=== PATIENT | male | born 1935 | race Caucasian/White ===

== ENCOUNTER 2016-08-12 11:05 | Day surgery (SDC) | payer MEDICARE ==
[~2016-08-12] VITALS: Ht 182.9 cm; Wt 111.5 kg
[2016-08-12] VITALS (10 sets, daily range): BP systolic 116–199; BP diastolic 59–95; PULSE 52–165; RESP 13–25; O2SAT 94–96
--- NOTE | 2016-08-12 07:10 | PCM.HPANE ---
Patient Data Surgeon Admitting Provider: Attending Provider:Orion Del Toro MD Primary Care Physician:Bijal Zarate PA-C Other Provider:Vanessa Sparks Anesthesia Reason for Visit Bladder Tumor Ht/WT & BMI Height (Feet): 6 Height (Inches): 0 Weight (Kilograms): 112.309 Body Mass Index 33.00 Allergies Coded Allergies: No Known Allergies (Unverified , 08/11/16) Past Anesthesia History Anesthesia History: Denies:: Anesthesia Reactions, Malignant Hyperthermia Diabetes History Hx Diabetes?: No MRSA MRSA: No Medications Reported Medications Ciprofloxacin (Cipro)500 Mg [id number] Mg PO BID Ref 0 08/11/16 [place]-3/Dha/Epa/Fish Oil (Fish Oil 1,000 mg Softgel)1 Each Capsule1 Each PO DAILY 08/11/16 Tamsulosin (Flomax)0.4 Mg Capsule0.4 Mg PO DAILY Ref 0 08/11/16 History History of ENT Problems?: Yes HEENT History: Denies:: Glaucoma (C/OF EYE IRRITATION) Hx of Heart Problems?: Yes Cardiovascular History: Denies:: Heart Murmur Hypertension Other Cardiac History: C/OF BRUISING EASILY HX PARATHYROIDISM, HEMATOCHROMOTOSIS & PYROPHOSPHATE CRYSTAL DEPOSITION Hx of Respiratory Problem?: No Respiratory History: Denies:: Use of C-PAP Machine Hx Neurologic Problems?: Yes Other Neurological Pertinent: POOR BALANCE Hx of GI Problems?: No Hx of Problems?: Yes Other Pertinent History: BLADDER RUMOR=CURRENT PROBLEM C/OF FREQUENCY,URGENCY,NOCTURIA Male Hx: Denies:: Prostate Problems Scrotal Mass Testicular Surgery Skin History: Positive for:: History Skin Disorders? (LUMP DORSUM RT HAND) Denies:: Pressure Ulcers Hx Musculoskeletal Problems?: Yes Musculoskeletal History: Positive for:: Degenerative Joint Joint Replacement (S/P RT CHELSI, B/L TKA'A) Osteoarthritis Hx of Psycho/Social Problems?: No Hx Surgeries?: Yes (CTR,RT CHELSI,B/L TKA'S,SPINE SURGERY) Hx Any Other Health Problems?: Yes Other History: Positive for:: Thyroid Disease (HX HYPERPARATHYROIDISM W/ PYROPHOSPHATE CRYSTAL DEPOSITION,HEMATOCHROMOCYTO) Denies:: Cancer Endocrine Disease Hospitalization Hx Diabetes: No Have You Smoked inLast 12 mo: No Stop/Bang S-Snoring: Do You Snore Loudly: No T-Tired: feel tired, fatigued: No O-Obsered: Observed not breath: No P-Blood Pressure: treated: No B- Body Mass Index > 35 kg/m2: No A- Age over 50: Yes N- Neck Large Circumference: Yes G- Gender Male: Yes ROSA MARIA Total Score: 3 Risk Assessment Category Category 1A: Patient has history of documented sleep apnea, and HAS NOT received any narcotic, sedative or anesthesia administration during this stay. Category 1B: Patient has history of documented sleep apnea, and HAS received any narcotic , sedative or anesthesia administration during this stay Category 2: Patient has SUSPECTED Obstructive Sleep Apnea, and HAS received any narcotic , sedative or anesthesia administration during this stay. Category 3: Patient has SUSPECTED Obstructive Sleep Apnea and HAS NOT received narcotic, sedative or anesthesia administration during this stay. Category 4: Outpatient in Procedural Areas with known sleep apnea or who screen positive for High Risk via the STOP/BANG questionnaire. Exam Exam General Appearance: Alert, Oriented X3, Cooperative, No Acute Distress HEENT/AIRWAY: MP 2, Neck Movement (from), Mouth Opening (wnl) Lungs: Clear to Auscultation, Normal Air Movement Heart: Exam Unremarkable Plan Impression Patient chart reviewed, patient interviewed and anesthestic plan with risks, benefits, and alternatives discussed, and informed consent obtained. ASA Physical Status: ASA2 Mod Systemic Disease Anesthetic Plan: GA Bene/Risks/Altern/Consents: Yes HP Complete Prior to Induction: Yes Isma Flores MD Aug 12, 2016 07:10
[~2016-08-12 11:05] MED LIST: CIPR-231 PO; Levofloxacin 500 mg/100 mL D5W IV SCH; Mitomycin Inj 40 MG in Syringe 1 EACH IRRIGATION SCH; OMEG-38 PO; TAMS0.4C98 PO
[2016-08-12] MEDS ORDERED: fentaNYL-PF 50 mCg/mL 2 mL Inj ONE (11:06)
[2016-08-12] MEDS: Lactated Ringer's 1,000 ML IV SCH ×2 (11:20→13:25)
[2016-08-12] MEDS ORDERED: Belladonna Alk-Opium 60 mg Rectal Suppository RECTAL ONE ×3 (13:11→13:59)
[2016-08-12] MEDS ORDERED: MITOMYCIN IRRIGATION ONE (13:57)
--- NOTE | 2016-08-12 14:12 | PCM.ANEP1 ---
Post Anesthesia Phase 1 PACU Phase 1 Assessment Vital Signs Vital Signs Date Time Temp Pulse Resp B/P Pulse Ox O2 Delivery O2 Flow Rate FiO2 08/12/16 11:31 36.6 52 18 116/59 95 Room Air Anesthetic Administered: GA Level of Alertness: Awake, talking BAJWA's with Equal Strength: Yes Pain: No Nausea or Vomiting: No Oxygen Delivery: Room Air Lungs: Normal Air Movement Isma Flores MD Aug 12, 2016 14:12
[2016-08-12] MEDS ORDERED: Lactated Ringer's 1,000 ML IV SCH (14:17)
[2016-08-12] MEDS ORDERED: Lactated Ringer's 500 ML IV PRN (14:17)
[2016-08-12] MEDS ORDERED: Labetalol 5 mg/mL 4 mL Inj IV PRN (14:20)
[2016-08-12] MEDS ORDERED: EPHEDrine Sulfate 50 mg/mL Inj IVPUSH PRN (14:20)
[2016-08-12] MEDS ORDERED: Ondansetron 2 mg/mL 2 mL Inj IVPUSH PRN (14:20)
[2016-08-12] MEDS ORDERED: Phenylephrine 10,000 mCg/mL Inj IVPUSH PRN (14:20)
[2016-08-12] MEDS ORDERED: hydrALAZINE 20 mg/mL Inj IVPUSH PRN (14:20)
[2016-08-12] MEDS ORDERED: Dexamethasone 4 mg/mL Inj IVPUSH PRN (14:20)
[2016-08-12] MEDS ORDERED: Atropine 0.4 mg/mL Inj IVPUSH PRN (14:20)
[2016-08-12] MEDS ORDERED: HYDROmorphone 1 mg/mL Inj IVPUSH PRN (14:20)
[2016-08-12] MEDS ORDERED: HYDROmorphone 0.5 mg/0.5 mL iSecure Syringe ONE (14:23)
--- NOTE | 2016-08-12 14:29 | PCM.SURGPO ---
Immediate Operative Note Date of Surgery: Aug 12, 2016 Pre Operative Diagnosis Bladder tumor Post Operative Diagnosis Bladder tumor, bladder lesions Procedure Cystoscopy, transurethral resection of bladder tumor (2-5cm), bladder biopsies, and Mitomycin intravesical instillation Surgeon and Enrolled Nurse Surgeon: Orion Del Toro MD Assistants: None Findings Cystoscopy revealed an approx. 2cm papillary and sessile bladder tumor on L trigone (approx. 1cm posterior to L ureteral orifice), an approx. 0.5cm edematous bladder lesion on superoposterior bladder wall, and an approx. 0.5cm edematous and minimally erythematous bladder lesion on bladder neck (at 6 o' clock). Bladder tumor and bladder lesions were resected using bipolar loop electrocautery. B/L ureteral orifices were seen to be intact and well- preserved at the end of the case. Mitomycin intravesical instillation was performed at the end of the case. Complications There were no periprocedural complications identified. Surgical Specimen Removed: Yes Specimen sent to Pathology: Yes Surgical Specimen description: L trigone bladder tumor, superoposterior wall bladder lesion, bladder neck lesion Anesthetic Administered: GA Grafts, Implants: Other (18F Ahuja catheter clamped) Output, Estimated Blood Loss: 5 Blood Admin during surgery: No Additional information Patient to have Ahuja catheter removed prior to discharge home, to return to see me in the office in 1-1.5 weeks for post-op visit. Orion Del Toro MD Aug 12, 2016 14:29
[2016-08-12] MEDS: fentaNYL-PF 50 mCg/mL 2 mL Inj IVPUSH PRN ×2 (14:34→14:48)
--- NOTE | 2016-08-12 14:38 | PCM.DISURG ---
Surgical Discharge Instruction Date of Service Aug 12, 2016 Dates of Hospitalization Date of Hospital Admission Aug 12, 2016 Providers Admitting Physician: Orion Del Toro MD Primary Care Physician: Bijal Zarate PA-C Attending Physician: Orion Del Toro MD Discharge Diagnosis Discharge Diagnosis Bladder tumor, bladder lesions Post Operative diagnosis Bladder tumor, bladder lesions Diet Discharge Diet: No restrictions, Other (Drink at least 10-12 8oz. glasses (3 liters) of fluids per day as long as there is blood in the urine) Activity Discharge Activity-General: No driving while taking narcotic, Other (No strenuous exercise/activity or moderate/heavy lifting (>10 lbs.) as long as there is blood in the urine) Dressing and Incisional Care Hygiene: May shower Follow Up Plan Follow-up Provider (F9): Orion Del Toro MD Follow-up appointment: Weeks (1-1.5 weeks for post-op visit) Call your provider for: Fever, Chills, Vomiting, Other (Pain uncontrolled by pain medications, inability to urinate) Orion Del Toro MD Aug 12, 2016 14:38
[2016-08-12] MEDS ORDERED: HYDROcodone-APAP 5-325 mg Tablet PO PRN (14:40)
--- NOTE | 2016-08-13 04:07 | OP ---
[address] [address] OPERATIVE REPORT PATIENT: ROSY FREEMAN : 1935 MR#: [id number] ADMIT: 08/12/2016 JOB ID: [id number] DATE OF SURGERY: 08/12/2016 PREOPERATIVE DIAGNOSIS(ES): Bladder tumor. POSTOPERATIVE DIAGNOSIS(ES): 1. Bladder tumor. 2. Bladder lesions. PROCEDURE: 1. Cystoscopy. 2. Transurethral resection of bladder tumor (2-5 cm). 3. Bladder biopsies. 4. Mitomycin intravesical instillation. SURGEON: Orion Del Toro MD. DEHYDRATOR TENDER: None. ANESTHESIA: General. ESTIMATED BLOOD LOSS: 5 mL. SPECIMENS: Left trigone bladder tumor, superoposterior wall bladder lesion, bladder neck lesion. DRAINS: An 18-Nigerian Ahuja catheter clamped. COMPLICATION: None. CONDITION: Stable. FINDINGS: Cystoscopy revealed an approximately 2 cm papillary and sessile bladder tumor on the left trigone (approximately 1 cm posterior to the left ureteral orifice) , an approximately 0.5 cm edematous bladder lesion on the superoposterior bladder wall, and an approximately 0.5 cm edematous and minimally erythematous bladder lesion on the bladder neck (at six o'clock). Bladder tumor and bladder lesions were resected using bipolar loop electrocautery. Bilateral ureteral orifices were seen to be intact and well preserved at the end of the case. Mitomycin intravesical instillation was performed at the end of the case. INDICATIONS: The patient is a 81-year-old male found on office cystoscopy to have a bladder tumor. Patient now presents for cystoscopy, transurethral resection of bladder tumor, possible left ureteral stent placement and Mitomycin intravesical instillation. PROCEDURE: Patient was brought to the operating room and placed supine on the operating room table. The patient was given Levaquin IV antibiotics. Sequential compression device boots were placed. General anesthesia was administered. The patient was brought down into dorsal lithotomy position. The patient was prepped and draped in the standard surgical fashion. A 26-Nigerian continuous flow resectoscope was placed through the urethral meatus and into the distal urethra without difficulty. Cystoscopy revealed normal distal urethra, mild to moderate bilobar prostatic hypertrophy, moderately trabeculated bladder, bilateral ureteral orifices in normal position, an approximately 2 cm papillary and sessile bladder tumor on the left trigone (approximately 1 cm posterior to the left ureteral orifice), an approximately 0.5 cm edematous bladder lesion on the superoposterior bladder wall, an approximately 0.5 cm edematous and minimally erythematous bladder lesion on the bladder neck (at six o'clock), and no bladder calculi. The bladder tumor and both of the bladder lesions were resected in their entirety using Thunderbeat bipolar loop electrocautery and sent to pathology for permanent specimen. The bases of the bladder tumor resected area and bladder biopsied area, including normal surrounding bladder mucosa, were fulgurated using the Thunderbeat bipolar loop electrocautery. Excellent hemostasis was achieved. No evidence for bladder perforation was seen. Bilateral ureteral orifices were seen to be intact and well preserved at the end of the case. The continuous flow resectoscope was removed from the patient. An 18-Nigerian Ahuja catheter was placed through the urethra and into the bladder without difficulty. Ahuja catheter balloon was inflated with 10 mL of sterile water. Ahuja catheter was initially placed to straight drainage and the bladder was allowed to completely drain via the Ahuja catheter. Then Mitomycin intravesical instillation was performed. Specifically, Mitomycin solution was instilled into the bladder via the Ahuja catheter, and then the Ahuja catheter was clamped. Skin was cleaned and dried. The patient was placed in supine position. The patient was awakened from general anesthesia and transferred to the recovery room in stable condition. Patient tolerated the procedure well. Ahuja catheter was unclamped after a period of hour and the Mitomycin solution was allowed to drain out of the bladder. The Ahuja catheter was removed prior to discharge home, and the patient was able to void after Ahuja catheter removal. PLAN: Is for the patient to return to see me in the office in 1 to 1-1/2 weeks for a postoperative visit. USHA
--- NOTE | 2016-08-13 07:09 | PCM.ANEP2 ---
Post Anesthesia Evaluation ASA/CMS Post Anesthesia VS in Patient's Normal Range?: Yes Resp Stable; Airway Patent?: Yes CV Function & Hydration Stable: Yes Mental Status Recovered?: Yes Pain control Satisfactory?: Yes N/V Control Satisfactory?: Yes Isma Flores MD Aug 13, 2016 07:09
--- NOTE | 2016-08-17 10:54 | PATH ---
SURGICAL PATHOLOGY Attending Physician:Orion Del Toro MD CASE STATUS: Signed Out PATIENT NAME: ROSY FREEMAN PID: [id number] : 1935 DATE COLLECTED:08/12/2016 22:40 SPECIMEN: 1: Bladder Neck 2: Bladder, Biopsy 3: Bladder, Biopsy CLINICAL HISTORY: BLADDER TUMOR 1). BLADDER NECK LESION 2). SUPERIOR POSTERIOR WALL BLADDER LESION 3). 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 2.SUPERIOR POSTERIOR WALL BLADDER LESION: SUBMUCOSAL VASCULAR ECTASIA WITH ASSOCIATED REACTIVE UROTHELIAL CHANGES AND MILD CHRONIC INFLAMMATION. Negative for evidence of neoplasm. 3.LEFT BLADDER TRIGONE TUMOR BIOPSY: SMALL UROTHELIAL PAPILLARY CARCINOMA, LOW GRADE. Negative for evidence of invasion of lamina propria. Muscularis propria present, but negative for malignancy. ICD10 code C67.0 NOTE: The material from part [address] Eulalio Will, who agrees with the diagnosis. GROSS DESCRIPTION: The specimen is received in three formalin filled containers labeled with the patient's name. 1). The specimen is sublabeled "bladder neck lesion" and consists of a 0.4 x 0.3 x 0.3 CM agarwal-bui portion of tissue which is entirely submitted in cassette 1A. 2). The specimen is sublabeled "superior posterior wall bladder lesion" and consists of a 0.4 x 0.3 x 0.3 CM portion of tissue. The specimen is entirely submitted in cassette 2A. 3). The specimen is sublabeled "left trigone bladder tumor" and consists of a 0.3 x 0.3 x 0.3 CM dark pink bui portion of tissue which is entirely submitted in cassette 3A. 08/12/2016 [facility] MICRO DESCRIPTION: See diagnosis. ICD-9 CODES: CPT CODES: 1: 46306 2: 94146 3: 16813 Electronically Signed Out Anthony Kan MD [facility] Pathology [facility] [address], [place] [address] Technical component performed at [facility], [facility] [address], [place], [address]
== END 2016-08-12 23:59 | disposition home or self-care (01) ==
LOC: SAS 11:05
PROVIDERS: ATTEND Urology
DX: C67.0 Malignant neoplasm of trigone of bladder (principal); N30.80 Other cystitis without hematuria; R31.29 Other microscopic hematuria; N39.41 Urge incontinence; R35.1 Nocturia; M19.90 Unspecified osteoarthritis, unspecified site; E21.3 Hyperparathyroidism, unspecified
CPT/HCPCS: 52235; J1170; J2250; J3010; J7120; J9280

== ENCOUNTER 2016-11-09 17:18 | Inpatient (IN) | payer MEDICARE ==
[~2016-11-09] VITALS: Ht 182.9 cm; Wt 96.0 kg
[~2016-11-09 17:18] MED LIST changes: +Cefepime Inj 2,000 MG in Dextrose 5% Minibag Plus 100 ML IV SCH; -Levofloxacin 500 mg/100 mL D5W IV SCH; -Mitomycin Inj 40 MG in Syringe 1 EACH IRRIGATION SCH
[2016-11-09] MEDS: Lactated Ringer's 1,000 ML IV SCH (17:37)
[2016-11-09] MEDS ORDERED: HYDROcodone-APAP 5-325 mg Tablet PO PRN (17:40)
[2016-11-09] MEDS ORDERED: Polyethylene Glycol (PEG) 17 Gm Powder PO PRN (17:40)
[2016-11-09 17:51] VITALS: BP 112/53; PULSE 94; RESP 17; O2SAT 95
[2016-11-09] MEDS ORDERED: MTC5T PO (18:04)
[2016-11-09] MEDS ORDERED: SCOP1PAT TD (18:04)
[2016-11-09 18:14] VITALS: PULSE 93
[2016-11-09] MEDS ORDERED: levoFLOXacin Inj 750 MG in IV Premix 1 EACH IV ONE (18:40)
--- NOTE | 2016-11-09 18:40 | PCM.HPMED ---
Subjective Date of Service November 09, 2016 Primary Provider: Admitting Physician: Nestor Eckert MD Primary Care Physician: Bijal Zarate PA-C Attending Physician: Nestor Eckert MD Chief Complaint: weakness, cough, sputum, chills History of Present Illness: 81-year-old male with distal esophageal cancer on concurrent chemotherapy radiation therapy, history of bladder cancer, pt was sent from radiation oncologist directly to hospital. Patient was diagnosed with distal aspect of cancer in August, currently receiving chemotherapy and radiation, last Chemo was 5days ago, pt tolerated well, PEG was inserted in Aug due to by mouth intelligibility, was getting parental nutrition. With Chemoradiation tx, pt was allowed to drink some liquid, didn't have major aspiration episode per . After last chemo, pt was able to swallow better, liquid. For the past 3days, pt has had multiple watery diarrhea, also nauseated intermittently. no vomiting. patient denied SOB but had cough with yellowish thick sputum intermittently. Yesterday pt went to [place] for J-tube insertion, tolerated procedure well. Throughout the night, pt had persistent cough, sputum, chills. Patient has chronic burning on chest and sore throat for long time, not aggravated recently. pt denied any cardiac/pulmonary dz ROS: Patient denied chest pain, has baseline urinary frequency unchanged, no smell/color change of urine, no travel. stayed home with . VS at Radiation, BP stable, mildly [id number], no fever. Vs remained stable on the floor. labs/CXR/EKG ordered Review of Systems: Pertinent positives as noted in history of present illness. All other systems were reviewed and are negative Allergies Coded Allergies: No Known Allergies (Unverified , 08/11/16) Home Medications Scopolamine patch PMH PAST MEDICAL HISTORY: 1. Bladder cancer, last seen by , plan was to repeat cystoscopy in 11/10, which was canceled as pt was getting active ChemoRtx for esophageal cancer. 2. Osteoarthritis PAST SURGICAL HISTORY: 1. Surgery for bladder cancer (TURBT?) 2. Double knee replacement 3. Hip replacement (right) 4. Laminectomy at L5 6 PAST RADIATION HISTORY: Note that he has not had any previous radiation therapy. FAMILY HISTORY: Esophageal cancer and a brother, axillary cancer in a maternal aunt and cancer of unknown primary and a brother and prostate cancer in another brother. SOCIAL HISTORY: He is . He is a never smoker. He used chewing tobacco for approximately 50 years having quit in June 2016. He does not use alcohol. He is retired. Exam Exam elderly male, difficulty of hearing no JVD, dryMM, no LAD RRR, nl s1, s2 no mrg CTAB, no w,c S,ND,NT,normoactive BS+ warm, no edema, pulses 2/2 Assessment & Plan Acute, active Cough, sputum, chills, POA, likely suggestive of aspiration pneumonia or pneumonitis given underlying esophageal cancer, -infectious w/u, CXR, sputum cx, respiratory PCR, -will give Levaquin one dose, consider continuing tomorrow -NS 100cc/hr -O2 supplement target >95% diarrhea, POA, exams benign for acute abdomen, J-tube inserted appropriately yesterday. -will get stool PCR -IVF as above distal esophageal cancer, POA, reportedly isolated lesion, no metastatis, -defer for further Radiation/chemo, which is scheduled for tomorrow Chronic, stable hx of bladder cancer, s/p TURBT, will get UA, UCX, follow up with dispananda:Patient will be admitted with inpatient status with expectation of inpatient therapy for more than 2 midnights diet:NPO, tube feeding start with 10cc/hr, appreciate nutrition consult dvt ppx:HSQ Full code, verbally confirmed with patient and at the bedside addendum> Labs showed severe neutropenia, 9 0.1WBCx9% likely due to recent chemotherapy, PCT mildly elevated. CXR unremarkable. -will empirically cover with [id number] q8h, continue Levaquin for possible intraabdominal process, ID consult tomorrow -please send UA, other infectious w/u -will get CT chest pain/abdomen/pelvis w w/o contrast Time spent 65 minutes Martha Ferrell MD November 09, 2016 17:47
[2016-11-09 19:00] LABS: BASOPHILS % (AUTO) 9.1 % (0-3); EOSINOPHILS % (AUTO) 0 % (0-5); MONOCYTES % (AUTO) 36.4 % (4-12); Mean Corpuscular Volume 95.3 fL (81-100); Platelet Count 73 bil/L (150-400)
--- NOTE | 2016-11-09 19:02 | DRSVH ---
PROCEDURE: X-RAY CHEST ONE VIEW, PORTABLE ([id number]) INDICATIONS: 81 year-old male with aspiration pneumonia. TECHNIQUE: One view of the chest was acquired. COMPARISON: [facility], CR, CHEST 1 VIEW, 08/28/2016, 15:44. [facility], CR, XR [address] 2VW, 08/11/2016, 12:02. FINDINGS: Surgical changes and devices: New left chest wall Port-A-Cath is present. Epigastric abdominal cathet er is partially visualized. Lungs and pleura: No pleural effusions or pneumothorax. Lungs are clear. Lung volumes are decreased . Mediastinum: Mediastinal contours appear normal. Heart size is normal. Bones and chest wall: No suspicious bony lesions. Severe asymmetric left glenohumeral joint degener ation is again noted. Overlying soft tissues appear unremarkable. IMPRESSION: Decreased lung volumes, without evidence for aspiration pneumonia. Dictated by: John Zarate M.D. on 11/09/2016 at 18:55 Approved by: John Zarate M.D. on 11/09/2016 at 18:56
[2016-11-09 19:25] LABS: Magnesium 1.7 mg/dL (1.6-2.6)
[2016-11-09 20:00] VITALS: PULSE 96
[2016-11-09] MEDS: 0.9% Sodium Chloride 1,000 ML IV SCH (20:41)
[2016-11-09] MEDS: 0.9% Sodium Chloride 250 ML IV SCH (20:48)
[2016-11-09] MEDS ORDERED: Sodium Chloride LOK Flush 10 mL Syringe IVFLUSH PRN ×2 (20:50)
[2016-11-09] MEDS ORDERED: CEFEPIME 2 GM IV ONE (20:55)
[2016-11-09] MEDS ORDERED: [UNRECOGNIZED DRUG - OTHER] IV ONE (20:55)
[2016-11-09 21:23] LABS: APPEARANCE,URINE CLEAR (CLEAR,HAZY); COLOR,URINE AMBER (YELLOW); OCCULT BLOOD,URINE LARGE (NEGATIVE); PH,URINE 5.5 (5.0-8.0)
[2016-11-09 21:24] LABS: UROBILINOGEN,URINE NORMAL (NORMAL)
[2016-11-09 21:26] LABS: ICTOTEST,URINE NEGATIVE (Negative)
[2016-11-09 21:40] VITALS: BP 117/66; PULSE 64; RESP 22; O2SAT 94
[2016-11-09] MEDS ORDERED: Acetaminophen IV 1,000 MG in IV Premix 1 EACH IV PRN (22:30)
[2016-11-09] MEDS: Famotidine Inj 20 MG in IV Premix 1 EACH IV SCH (22:40)
--- NOTE | 2016-11-09 23:06 | PROG NOTE ---
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 He is now in his final week of treatment and has become exceedingly symptomatic with the following symptoms: Continued regurgitation of stomach contents, bile and some feeding tube contents despite repositioning and placement of a jejunostomy feeding tube last Tuesday, witrh severe nausea, weakness and inability to care for himself at home, as well as abdominal and esophageal pain. Dr. Wright (Radiation Oncology) spoke with me today about his decreasing tolerance for fluids and increasing weakness. HISTORY OF PRESENT ILLNESS: He was originally evaluated for relatively sudden onset of dysphagia. He was seen in the emergency department on August 28 and a diagnostic EGD was performed by Dr. Cabrera with finding of a distal esophageal mass. On September 02, a biopsy was performed showing distal esophageal mass from 30-38 cm showing high-grade adenocarcinoma. PET-CT scan done on September 15 showed no evidence of metastases. He was initiated on combined modality therapy as described above. Now that he is nearing the end of his treatment, he has become too weak to take care of himself, dehydrated, malnourished, and severely symptomatic related to constant regurgitation of stomach contents and some feeding tube contents as well. Dr. Baljeet britton [place], who is the surgeon who will perform the esophagectomy post chemotherapy and radiation, placed a jejunostomy feeding tube last Tuesday, either with the assistance of, or assisting, interventional radiology at [facility]. The patient does state that some of the feedings are going through, but that he still has regurgitation of those contents into his throat. The patient has also had a superficial bladder tumor removed by Dr. Del Toro, but this is not being actively treated at this time. Chemotherapy with radiation commenced on October 06, 2016, with the first dose of carboplatin at 255 mg and paclitaxel at 175 mg. He received doses of chemotherapy on October 06, October 14, October 27, and November 04, 2016. He is up for his last dose of chemotherapy this week. He has had some problems with cytopenias requiring G-CSF; for example, on November 03 he had a white count at 1.4 and received G-CSF with increased white count to 5.6 the next day. His main symptom has still been nausea, regurgitation of oral secretions and stomach contents constantly throughout the day and night, extreme fatigue due to lack of sleep, abdominal discomfort and nausea. On Tuesday he underwent J-tube insertion in [place] with the hope that this would allow his feedings at least to make their way through his digestive tract; nonetheless, even with the J-tube he has had significant regurgitation of bile and stomach contents. History of present illness summarized: 1. T3 N1 or stage III esophageal adenocarcinoma from 35-38 cm. 2. Nonmuscle invasive papillary urothelial carcinoma resected by Dr. Del Toro August 12, 2016. 3. Bilateral knee and right hip replacement. 4. Laminectomy in the . 5. PEG tube placement August 2016. 6. Jejunostomy tube placement November 05, 2016. REVIEW OF SYSTEMS: A 14 system review is conducted and is negative except for those symptoms described in the HPI. PHYSICAL EXAMINATION: This is a very uncomfortable appearing 81-year-old man. He is alert and talkative. He has a vomit bag with him at all times. His vital signs show a temp of 38.0, pulse 64, respiratory rate 22, blood pressure 117/66, pulse ox 94% on room air. In general, he looks uncomfortable. Head and neck: Pupils equal, round, reactive without icterus or conjunctivitis. Oral and oropharyngeal mucosa pink and moist. Lungs: Clear to auscultation. Cardiac: Rhythm is regular without murmur or peripheral edema. Abdomen: Somewhat tender. No masses, ascites or organomegaly. Extremities without edema or tenderness. Skin shows mild tenting. LABORATORY VALUES: The white count is 0.1, hemoglobin 12.5, hematocrit 36.1, platelets 73,000. BUN and creatinine are 20 and 0.59, electrolytes normal. Magnesium 1.7. Calcium 8.4, albumin 3.5. Procalcitonin 0.16. AST 32, ALT 48, alk phos 49, bilirubin total 2.4. IMAGING: Chest, abdomen and pelvis CT has been performed today for additional workup. Official reading is pending. ASSESSMENT AND RECOMMENDATIONS: 1. Cytopenias with fever. Patient should be treated as neutropenic fever, neutropenia related to chemotherapy and radiation therapy. Dr. Ferrell has already evaluated the patient and placed the patient on IV fluid and Levaquin for possible aspiration pneumonia and other possible sources of infection, including recent surgical procedure for jejunostomy tube. Stool is being checked for Clostridium difficile as well. 2. Chronic and worsening symptoms related to esophageal cancer. The patient will be managed with symptomatic care including IV fluids and IV antibiotics. 3. Neutropenia. The patient will be treated in addition with cefepime 2 g q.8 h. with an Infectious Disease consult tomorrow. He should also receive G-CSF 480 mcg subcutaneously daily. 4. The patient was slated to receive chemotherapy this week during radiation, but I do not believe that this is going to be possible given his current neutropenic fever. MTDD
[2016-11-10] VITALS (7 sets, daily range): BP systolic 100–156; BP diastolic 58–75; PULSE 69–91; RESP 18–20; O2SAT 94–97
[2016-11-10] MEDS: Lactated Ringer's 1,000 ML IV SCH ×3 (03:19→22:46)
[2016-11-10 04:27] LABS: Mean Corpuscular Hemoglobin 32.1 pg (27.0-35.0); Mean Corpuscular Volume 95.3 fL (81-100); Platelet Count 70 bil/L (150-400)
[2016-11-10 04:28] LABS: BASOPHILS % (AUTO) 0 % (0-3); EOSINOPHILS % (AUTO) 0 % (0-5); MONOCYTES % (AUTO) 23.1 % (4-12); NEUTROPHILS % (AUTO) 23.1 % (40-74)
[2016-11-10 04:56] LABS: Magnesium 1.6 mg/dL (1.6-2.6); Phosphorus 1.8 mg/dL (2.5-4.9)
[2016-11-10] MEDS ORDERED: Cefepime Inj 2,000 MG in Dextrose 5% Minibag Plus 50 ML IV SCH (08:00)
[2016-11-10] MEDS: 0.9% Sodium Chloride 1,000 ML IV SCH ×2 (08:21→19:17)
[2016-11-10] MEDS: Famotidine Inj 20 MG in IV Premix 1 EACH IV SCH ×2 (08:22→21:01)
--- NOTE | 2016-11-10 09:20 | DRSVH ---
PROCEDURE: CT CHEST, ABDOMEN AND PELVIS WITH CONTRAST ([id number]) INDICATIONS: esophageal cancer, probable infection, bladder CA TECHNIQUE: After the administration of intravenous contrast, 5 mm thick sections acquired from the lung apices t o the symphysis. 5 mm thick coronal and sagittal reformats were acquired. Additional 7 mm thick cor onal maximum intensity projection (MIP) reformats acquired through the lungs. For radiation dose red uction, the following was used: automated exposure control, adjustment of mA and/or kV according to patient size. COMPARISON: Outside Film, NM, PET NECK TO MID THIGH STD, 09/15/2016, 11:31. [facility], CT, JASMINE ST/ABD/PEL WITH CONTRAST, 08/28/2016, 19:16. [facility], CT, IVP (ABD & PEL WWO CONTRAST), 2016, 10:38. FINDINGS: Image quality: Excellent. CHEST: Lungs: No pulmonary contusions or lacerations. No acute airspace opacities. Right lower lobe and le ft lower lobe lung nodules are stable in size contour and number compared to 08/28/2016. No new lung no dules identified. No pneumothorax or hemothorax. Central and peripheral airways appear patent and no rmal in caliber. Mediastinum: No mediastinal hematomas. Heart size is normal. No pericardial effusion. Thoracic ao rta and pulmonary arteries demonstrate normal size and enhancement. No mediastinal or hilar adenopat hy. Circumferential wall thickening involving the mid distal esophagus compatible with known esophage al cancer is noted. Chest wall: Left chest wall Port-A-Cath with tip projecting to the distal SVC. No rib fractures. No subcutaneous emphysema. No axillary or supraclavicular adenopathy. Thyroid gland is within normal limits. ABDOMEN: Solid organs: Liver and spleen are normal in size and enhancement, without lacerations. Gallbladder contains at least one stone. Biliary system is non-dilated. Pancreas enhances normally. Fatty atro phy of the pancreas is noted. No adrenal hematomas. Both kidneys enhance normally, without hydroneph rosis or lacerations. Left renal cyst is stable. Peritoneum and bowel: Presence of percutaneous gastrojejunostomy tube noted. No free fluid or air. Unenhanced bowel loops demonstrate normal wall thickness and caliber. Contrast material noted in the colon related to recent small bowel Gastrografin study. Nodes and vessels: No retroperitoneal or mesenteric adenopathy. Aorta and inferior vena cava are no rmal in size and enhancement. Scattered atherosclerotic calcifications involving the abdominal and pe lvic vasculature. Miscellaneous: No ventral hernias. PELVIS: Genitourinary: Soft tissue density masses within the anterior margin of the urinary bladder compatibl e with reported bladder cancer. Miscellaneous: No adenopathy. Fat-containing right inguinal hernia. Bones: Pelvic ring and hip joints appear intact. No vertebral compression fractures. Spine degenera tive disc disease and facet arthropathy. Right hip arthroplasty noted. IMPRESSION: 1. Circumferential wall thickening involving the esophagus compatible with known esophageal carcinoma . 2. Soft tissue density mass in the urinary bladder compatible with reported carcinoma. 3. No evidence of distal metastatic disease. 4. Status post placement of percutaneous gastrojejunostomy tube. 5. No free fluid or free air. 6. No evidence of abscess. 7. Bilateral lung nodules stable compared to 08/28/16. Dictated by: Becky Quintero MD, PhD on 11/10/2016 at 8:42 Approved by: Becky Quintero MD, PhD on 11/10/2016 at 9:19
--- NOTE | 2016-11-10 10:09 | DRSVH ---
PROCEDURE: X-RAY SMALL BOWEL GASTROGRAPHIN STUDY ([id number]) INDICATIONS: check j-tube patency use non-diluted COMPARISON: [facility], CT, CT CHEST ABD PELVIS W CON, 11/09/2016, 21:57. FINDINGS: KUB: Preprocedural energy administrator film demonstrates a normal bowel gas pattern. No suspicious abdominal calc ifications. Visualized solid organ contours appear normal. No suspicious bony abnormalities. Gastr ojejunostomy tube is present with the tip projected over the left flank likely within the proximal sm all bowel. Small bowel: Small amount of Gastrografin was instilled and then a KUB was obtained. Tube tip is po sitioned within the proximal small bowel and there is no extravasation of contrast media seen. Limit ed visualization of the adjacent small bowel appears grossly normal. IMPRESSION: Patent gastrojejunostomy tube with the tip positioned within the proximal jejunum. Dictated by: Adolfo SALAZAR Interpreted: Nighat Glover MD on 11/10/2016 at 10:07 Transcribed by: PIERCE on 11/10/2016 at 10:09 Approved by: Nighat Glover M.D. on 11/12/2016 at 9:06
--- NOTE | 2016-11-10 11:07 | PCM.PNMED ---
Subjective Date of Service November 10, 2016 Subjective pt had one febrile episode, otherwise stable, denied abdominal pain, tube feeds were held as pt couldn't tolerate, with nausea , has intermittent cough, no sputum, reported large watery BM still feels very thirsty Exam Vital Signs Vital Sign - Last Date Time Temp Pulse Resp B/P Pulse Ox O2 Delivery O2 Flow Rate FiO2 11/10/16 10:09 83 11/10/16 08:06 37.1 18 115/71 97 Room Air 11/10/16 02:20 2.00 Intake and Output 11/09/16 11/09/16 11/10/16 Cumulative From/Thru 15:00 23:00 07:00 11/09/16 17:51 - 11/10/16 06:16 Intake Total 784 ml 784 ml Balance 784 ml 784 ml IV Total 784 ml 784 ml Exam elderly male, difficulty of hearing no JVD, dryMM, no LAD RRR, nl s1, s2 no mrg CTAB, no w,c S,ND,NT,normoactive BS+ warm, no edema, pulses 2/2 J-[address] IVs and Medications Medications Reviewed: Medications were reviewed in detail Lab and Diagnostics Result Diagram: 11/10/1640911/10/16409 Assessment & Plan Acute, active neutropenic fever, POA, source likely aspiration PNA, viral/bacterial colitis. Although imagings gil CT, CXR was not suggestive. UA unremarkable. resp PCR neg -continue cefepime, Levaquin, appreciate ID consult -NS 100cc/hr Cough, sputum, chills, POA, likely suggestive of aspiration pneumonia or pneumonitis given underlying esophageal cancer, -O2 supplement target >95% -abx as above diarrhea, POA, exams benign for acute abdomen, J-tube in position, no extravasation on Gastrografin study -persisted diarrhea today, get stool PCR -empirically start vanc po to cover c.diff distal esophageal cancer, POA, reportedly isolated lesion, no metastatis, -appreciate for further Radiation/chemo, being held, -neupogen per Chronic, stable hx of bladder cancer, s/p TURBT, stable on gil CT, follow up with Dr.Hong mata:Patient will be admitted with inpatient status with expectation of inpatient therapy for more than 2 midnights diet: restart tube feeding start with 10cc/hr, appreciate nutrition consult dvt ppx:HSQ Full code, verbally confirmed with patient and at the bedside Time spent 35min Martha Ferrell MD November 10, 2016 11:07
[2016-11-10] MEDS: Filgrastim 480 mCg/1.6 mL Inj SUBQ SCH (12:32)
[2016-11-10] MEDS: Vancomycin 100 mg/mL Oral Solution PO SCH ×2 (13:38→21:01)
[2016-11-10] MEDS ORDERED: Pantoprazole 4 mg/mL 10 mL Inj IVPUSH ONE (14:25)
--- NOTE | 2016-11-10 14:41 | CONS ---
[address] [address] CONSULTATION REPORT PATIENT: ROSY FREEMAN : 1935 MR#: [id number] ADMIT: 11/09/2016 JOB ID: [id number] DATE OF SERVICE: 11/10/2016 INFECTIOUS DISEASE CONSULT: I thank Dr. Ferrell for this timely consult. REASON FOR CONSULTATION: Neutropenic fever. HISTORY OF THE PRESENT ILLNESS: The patient is an unfortunate 81-year-old gentleman who earlier this year had a bladder resection for a bladder tumor. He was subsequently diagnosed in August with esophageal malignancy, for which he has undergone surgery, as well as radiation and chemotherapy. The patient's most recent chemotherapy was tolowa dee-ni' and Taxol and was given five days ago. In addition, he is receiving ongoing radiation therapy and is nearing the end of 29 daily radiation treatments. His overall health has been declining during this long ordeal of chemo and radiation. He has had troubles with hydration and for that reason, a PEG that had been placed at the time of diagnosis in August was replaced earlier this week with a J-tube. This was done to facilitate hydration, as he really has not been able to take anything by mouth and the PEG tube has been associated, at least, with a large amount of nausea, vomiting and esophageal pain. It was hoped that the placement of the J-tube would bypass the stomach to some degree and improve his ability to tolerate nutrition through the tube. He has also been told that, on the basis of an upper endoscopy done earlier this week, that he can start to eat ice chips and popsicles, as there is now enough lumen in his esophagus to allow this to occur. The patient and his report that for the past couple of weeks he has had chills without fevers. He has been generally weaker and weaker with this radiation and chemo activity, and has had a great deal of esophageal pain, nausea, vomiting and recently, watery diarrhea. Yesterday, the patient was found to have a temperature to 38 degrees and was therefore admitted, as he is profoundly neutropenic from his most recent chemo and meets the criteria for febrile neutropenia. It was felt that perhaps he had an aspiration event due to his persistent nausea and vomiting and for that reason, he was started on antibiotics, though the antibiotics chosen, cefepime and levofloxacin, do not have a lot of anaerobic activity. It is also notable that the patient has a port, which has been present in his left chest since August, but has not given him any problems. Today, the patient just reports weakness and the occasional chill. He is still having nausea, vomiting and severe retrosternal esophageal pain. He reports these are basically chronic problems. He also has been coughing and producing a fair amount of thick yellow sputum. It is unclear to me what the chronicity is of this thick yellow cough. He denies any dysuria, urgency, or frequency. He has had watery diarrhea as well. PAST MEDICAL HISTORY: 1. Bladder cancer with resection in July. 2. Esophageal cancer diagnosed in August with ongoing radiation and chemotherapy. He has also had the PEG tube that was placed in August and replaced with the J-tube here two days ago. He has also had a recent EGD that was done two days ago which apparently found there was enough lumen to consider some liquid hydration. 3. Orthopedic issues with replacement of left hip and both knees. 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 He also chewed snus but he did not smoke cigarettes. No significant alcohol history. The patient served in the [employer] in the [employer] in a variety of locations including the [facility]. I think he and his currently reside in [place]. FAMILY HISTORY: Negative for TB in first and second-degree relatives. REVIEW OF SYSTEMS: The patient has no significant headache. No visual change except that he does have chronic watery eyes, which has been quite irritating to him. He does have a sore throat and, in fact, pain all the way down his esophagus to his stomach which has been ongoing since the diagnosis of esophageal cancer. He has a productive cough with thick yellow sputum which has been going on for a week or more. He has had constitutional symptoms including chills for two weeks. No sweats or fevers, however. He has had watery diarrhea but no abdominal pain. Nausea and vomiting have both been a recurring problem throughout this chemo and radiation. No skin rash has been reported. No dysuria. He has had some numbness in his feet since the onset of his radiation and chemo treatment but he is able to ambulate, though he is increasingly weak when he does it. No specific problems with his joints, and no problems with his port. Remainder of the review of systems is negative. PHYSICAL EXAMINATION: Reveals a gentleman who is febrile to 38 degrees at 2140. He has been afebrile since, now 37.1. Pulse 83, respiratory rate 18, blood pressure 115/71. He is saturating well on room air. His mental status is clear, though he is slightly hard of hearing. No temporal wasting is noted. His eyes are watery but without conjunctivitis or scleral icterus. His nose is normal. His oral cavity has some degree of mild posterior pharyngitis. His neck is without adenopathy. He has a port in the left upper chest which looks benign. His lungs are notable for a few crackles at the bases but relatively clear. Cardiac tones: Regular rate and rhythm. No murmur appreciated. The abdomen is soft, nontender. The new J-tube is present in the left upper quadrant and appears benign at its insertion. He does not have a Ahuja catheter. No suprapubic fullness is appreciated. No adenopathy is appreciated. His joints are without evidence of synovitis. He does not have a rash. Does not have significant peripheral edema. He has excellent strength in his lower and upper extremities. Remainder of the physical is unremarkable. LABORATORIES: Include white count of 100 with 23 total neutrophils which is better than yesterday when he came in, when he had 100 total white cells and 9 total neutrophils. Hematocrit 32, platelet count 70,000. Creatinine 0.56. Urinalysis, 0-5 white cells. Micro studies so far include a respiratory viral PCR panel which is negative, and blood cultures which are negative. It is unclear if any of these blood cultures were drawn through the PICC. Chest x-ray shows no acute infiltrate. CT chest, abdomen and pelvis was done. It shows esophageal thickening consistent with esophageal cancer, as well as a mass in the bladder consistent with his bladder cancer. No evidence of mets. There is no free air, and no evidence of an abscess. There are some bilateral pulmonary nodules that are stable. IMPRESSION: This is an unfortunate 81-year-old gentleman who in recent months has been diagnosed with bladder cancer and advanced esophageal cancer. He is receiving chemotherapy, as well as radiation on an ongoing basis for esophageal cancer and is now profoundly neutropenic. His overall course has been marked by decline which may be at least, in part, due to his treatments, as he has had nausea, vomiting, weakness, dehydration and recently watery diarrhea. He is admitted now with a low-grade fever, and just generalized debility. Despite his extraordinarily low neutrophil count, the patient does not appear septic or overtly toxic. I agree that aspiration pneumonia is a concern here but we do not see it on either the CT or the chest x-ray. Also possible might be a port infection, though it looks benign to me, or perhaps Clostridium difficile diarrhea. RECOMMENDATIONS: 1. I would discontinue all current antibiotics and switch to Zosyn. 2. Will obtain two sets of blood cultures, one through the port and one through the skin. 3. We await the stool for C. diff PCR. 4. Will obtain Fungitell and galactomannan as baseline assays in case his neutropenia is prolonged. 5. Will continue to closely follow this complex patient with you.
[2016-11-10] MEDS: Piperacillin-Tazo 3.375 Gm Inj 3.375 GM in Dextrose 5% Minibag Plus 50 ML IV SCH ×2 (14:47→21:59)
[2016-11-10] MEDS: Ondansetron 2 mg/mL 2 mL Inj IVPUSH PRN (17:10)
[2016-11-10] MEDS: 0.9% Sodium Chloride 250 ML IV SCH (19:32)
[2016-11-10] MEDS ORDERED: levoFLOXacin Inj 750 MG in IV Premix 1 EACH IV SCH (21:00)
[2016-11-11] VITALS (7 sets, daily range): BP systolic 108–122; BP diastolic 62–70; PULSE 67–84; RESP 18–20; O2SAT 94–97
[2016-11-11] MEDS: Vancomycin 100 mg/mL Oral Solution PO SCH ×2 (02:47→08:07)
[2016-11-11] MEDS: 0.9% Sodium Chloride 1,000 ML IV SCH ×2 (05:14→10:40)
[2016-11-11] MEDS: Piperacillin-Tazo 3.375 Gm Inj 3.375 GM in Dextrose 5% Minibag Plus 50 ML IV SCH ×3 (05:15→22:05)
[2016-11-11 05:17] LABS: Mean Corpuscular Hemoglobin 32.2 pg (27.0-35.0); Mean Corpuscular Volume 96.1 fL (81-100); Platelet Count 80 bil/L (150-400)
[2016-11-11 06:00] LABS: Magnesium 1.7 mg/dL (1.6-2.6); Phosphorus 1.5 mg/dL (2.5-4.9)
[2016-11-11] MEDS ORDERED: Potassium Chloride Inj 30 MEQ in Dextrose 5% 500 ML IV ONE (07:35)
[2016-11-11] MEDS ORDERED: Magnesium Sulf 2 Gm/50mL Water 2 GM in IV Premix 1 EACH IV ONE (07:35)
[2016-11-11 07:48] LABS: BASOPHILS % (AUTO) 0 % (0-3); MONOCYTES % (AUTO) 43 % (4-12); NEUTROPHILS % (AUTO) 5 % (40-74)
[2016-11-11 07:49] LABS: EOSINOPHILS % (AUTO) 14 % (0-5)
[2016-11-11] MEDS: Pantoprazole 4 mg/mL 10 mL Inj IVPUSH SCH ×2 (08:08→18:28)
[2016-11-11] MEDS ORDERED: DEXTROSE 5% IV ONE (08:35)
[2016-11-11] MEDS ORDERED: POTASSIUM PHOS IV ONE (08:35)
[2016-11-11] MEDS: Famotidine Inj 20 MG in IV Premix 1 EACH IV SCH ×3 (09:27→22:35)
[2016-11-11] MEDS: Lactated Ringer's 1,000 ML IV SCH ×2 (09:37→19:37)
[2016-11-11] MEDS ORDERED: Ondansetron 2 mg/mL 2 mL Inj IVPUSH ONE (10:00)
[2016-11-11] MEDS ORDERED: Dexamethasone Inj 20 MG in 0.9% Sodium Chloride-Pha MIX 50 ML IV ONE (10:00)
[2016-11-11] MEDS ORDERED: Famotidine 20 mg/50 mL NS IV ONE (10:00)
[2016-11-11] MEDS ORDERED: CARBOPLATIN IV ONE (11:00)
[2016-11-11] MEDS ORDERED: SODIUM CHLORIDE 0.9% IV ONE (11:00)
[2016-11-11] MEDS ORDERED: [UNRECOGNIZED DRUG - OTHER] IV ONE ×2 (11:00)
--- NOTE | 2016-11-11 11:04 | PCM.PNMED ---
Subjective Date of Service November 11, 2016 Subjective pt c/o increased saliva vs sputum, required suction, minimal cough, denied SOB reported persistent diarrhea, c.diff negative tolerating 10cc/hr tube feeds, no aspiration episode reported, maintained HOB>30 plan for radiotx today Exam Vital Signs Vital Sign - Last Date Time Temp Pulse Resp B/P Pulse Ox O2 Delivery O2 Flow Rate FiO2 11/11/16 09:52 36.6 80 18 108/67 97 Room Air 11/10/16 02:20 2.00 Intake and Output 11/10/16 11/10/16 11/11/16 Cumulative From/Thru 15:00 23:00 07:00 11/09/16 17:51 - 11/11/16 05:17 Intake Total 0 ml 1327 ml 1562 ml 3673 ml Output Total 405 ml 550 ml 955 ml Balance -405 ml 1327 ml 1012 ml 2718 ml Intake Oral 0 ml 100 ml 100 ml IV Total 1309 ml 1226 ml 3319 ml Tube Feeding 18 ml 116 ml 134 ml Tube Irrigant 120 ml 120 ml Output Urine Total 405 ml 550 ml 955 ml # Voids 4 4 # Bowel Movements 0 0 0 Exam elderly male, difficulty of hearing no JVD, dryMM, no LAD RRR, nl s1, s2 no mrg CTAB, no w,c S,ND,NT,normoactive BS+ warm, no edema, pulses 2/2 J-[address] IVs and Medications Medications Reviewed: Medications were reviewed in detail Lab and Diagnostics Result Diagram: 11/11/16 0505 11/11/16 0505 Assessment & Plan Acute, active neutropenic fever, POA, source likely aspiration PNA, viral/bacterial colitis. Although imagings gil CT, CXR, stool PCR were all not suggestive. UA unremarkable. resp PCR neg -pt clinically stable, afebrile with current tx -s/p cefepime, Levaquin on admission, switched to zosyn, appreciate ID management -NS 100cc/hr Cough, sputum, chills, POA, likely suggestive of aspiration pneumonia or pneumonitis given underlying esophageal cancer, -O2 supplement target >95% -abx as above -suction as needed diarrhea, POA, due to ?hyperosmolar enteral nutrition, exams remained benign for acute abdomen, J-tube in position, no extravasation on Gastrografin study, stool PCR negative. -diarrhea persisted per staffs, -empirically started vanc po to cover c.diff, but stopped today. 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 -neupogen per Chronic, stable hx of bladder cancer, s/p TURBT, stable on gil CT, follow up with dispo:likely 3-4more days until clinically more stable, appreciate PT, home with HH diet:tube feeding start with jevity1.5 10cc/hr,increase as tolerated per nutrition consult dvt ppx:HSQ Full code, verbally confirmed with patient and at the bedside, will consider palliative care consult if clinically not improving. Time spent 35min Martha Ferrell MD November 11, 2016 11:04
[2016-11-11] MEDS ORDERED: Fluconazole Inj 400 MG in IV Premix 1 EACH IV ONE (11:50)
[2016-11-11] MEDS: Filgrastim 480 mCg/1.6 mL Inj SUBQ SCH (12:51)
--- NOTE | 2016-11-11 15:34 | PROG NOTE ---
[address] [address] PROGRESS NOTE PATIENT: ROSY FREEMAN : 1935 MR#: [id number] ADMIT: 11/09/2016 JOB ID: [id number] DATE: 11/11/2016 INFECTIOUS DISEASE FOLLOWUP NOTE: REASON FOR FOLLOWUP: Profound neutropenia, with a single temperature spike on November 09. INTERVAL HISTORY: This is an unfortunate 81-year-old gentleman with advanced esophageal cancer, as well as almost simultaneous bladder cancer. He has been receiving chemotherapy and radiation for his esophageal disease and on Tuesday, three days ago, underwent an EGD and placement of a new J-tube. The EGD was apparently the first time that anything has been able to pass through the lumen of his esophagus since his tumor was diagnosed. Subsequently, the patient developed subjective fevers, and had a documented temperature of 38 degrees, in association with profound neutropenia and sustained neutrophil count below 25 over the past several days. He has now been in the hospital , going on 3 days on broad-spectrum antibiotics. Today, the patient reports he feels worse than he did yesterday. He feels bad all over, his phrase, with myalgias, arthralgias, flushing of the face. Severe esophageal burning persists, and he has perirectal pain with defecation. We discussed the case with the nurses. They report that his buttocks are erythematous but he has no dinorah breakdown on the backside. PHYSICAL EXAMINATION: Reveals an afebrile gentleman. Temp 36.6, pulse 80, respiratory rate 18, blood pressure 108/67. He is saturating well on room air. He looks very fatigued, and he has profound flushing of his cheeks bilaterally. Conjunctivae are pale. Oral cavity without thrush, pharyngitis, or new abnormality. Lungs are reasonably clear posteriorly. Cardiac tones: Regular rate and rhythm with occasional ectopic beat. No new murmur appreciated. A port in the left upper chest is nontender. His J-tube appears benign, as does the site of his previous feeding tube, which has now been removed. His abdomen is relatively nontender, and he has perianal erythema as previously noted. His extremities appear free of edema or infection. LABORATORIES: Include a white count at 200 but only 5% neutrophils for a total neutrophil count of only 10. He has 14% eosinophils but it is hard to interpret in view of the fact that he has really no white cells at all. His creatinine 0.38. His albumin 2.9. His procalcitonin 0.15. All of his procalcitonins are about 0.15. Micro studies include negative MRSA PCR, negative nasopharyngeal PCR, negative stool PCR and negative blood cultures. IMAGING: Includes a small bowel x-ray done yesterday which shows that the J-tube tip is patent. We again reviewed the chest x-ray, which does not show any impressive infiltrates. IMPRESSION: This is an unfortunate gentleman with continued profound neutropenia, though he has not been febrile for a couple of days. Still very worried, of course, that he may have an indolent or not obvious infection. Likely sources of infection in this patient would include his esophagus which has been heavily radiated and recently was instrumented. It is also possible that he could have a bacteremia due to translocation from the gut or his port. Far less likely than these would include the possibility of strongyloides, given that the patient did serve in the [employer] for three or four years and that service included a brief stint in the [facility], where strongyloides can be easily acquired. RECOMMENDATIONS: 1. Will continue with Zosyn. 2. Will drop the vancomycin. 3. Will go ahead and start fluconazole with a 400 mg loading dose and then 200 mg a day, as the patient is at very high risk for a yeast infection. 4. We await the Fungitell and galactomannan previously ordered.
[2016-11-11] MEDS: 0.9% Sodium Chloride 250 ML IV SCH (20:48)
[2016-11-11] MEDS: Fluconazole Inj 200 MG in IV Premix 1 EACH IV SCH (22:45)
[2016-11-12] VITALS (7 sets, daily range): BP systolic 103–131; BP diastolic 51–60; PULSE 55–82; RESP 18–20; O2SAT 94–96
[2016-11-12] MEDS: Piperacillin-Tazo 3.375 Gm Inj 3.375 GM in Dextrose 5% Minibag Plus 50 ML IV SCH ×3 (05:36→21:53)
[2016-11-12] MEDS: Lactated Ringer's 1,000 ML IV SCH ×2 (05:37→12:25)
[2016-11-12 05:41] LABS: Mean Corpuscular Hemoglobin 32.7 pg (27.0-35.0); Mean Corpuscular Volume 95.2 fL (81-100); Platelet Count 109 bil/L (150-400)
[2016-11-12] MEDS: 0.9% Sodium Chloride 1,000 ML IV SCH ×2 (05:42→05:43)
[2016-11-12] MEDS: Ondansetron 2 mg/mL 2 mL Inj IVPUSH PRN ×3 (05:49→15:52)
[2016-11-12] MEDS ORDERED: Potassium Phos (mEq) Inj 40 MEQ in Dextrose 5% 500 ML IV ONE (07:25)
[2016-11-12] MEDS: Pantoprazole 4 mg/mL 10 mL Inj IVPUSH SCH ×2 (08:26→15:52)
[2016-11-12] MEDS: Filgrastim 480 mCg/1.6 mL Inj SUBQ SCH (08:43)
--- NOTE | 2016-11-12 08:52 | PROG NOTE ---
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 He was receiving combined modality therapy, and last received systemic chemotherapy along with radiation last week and last received radiation therapy the day of admission. He was also found to be neutropenic and spiked one fever, and is being followed by Dr. Lee for that. He has received filgrastim and antibiotics, and is receiving IV fluids, tube feedings and other supportive care. SUBJECTIVE: He is very concerned that he may be discharged from the hospital. I indicated to him that the general consensus seems to be that he would be in the hospital at least three or four more days. He has continued regurgitation of stomach contents, although this is better, he feels weak and tired but has no pain and has passed a bowel movement today which was loose in character. He has continued nausea. He is not short of breath, and he has no chest pain, nor other pains. The remainder of the 14-system review is negative. OBJECTIVE: His vital signs show a temp of 37.0, pulse 67, respiratory rate 18, blood pressure 114/62, pulse ox 94% on room air. His BSA is 2.22 m2, BMI 28.5 kg/m2. Weight 95.2 kg, height 182.88 cm. Head and neck: No icterus. No conjunctivitis. Pupils equal, round, reactive. Oral mucosa is without thrush or lesions, as is the oropharynx. There is no adenopathy in the neck. Lungs are clear to auscultation bilaterally and anteriorly. Cardiac rhythm is regular. There is no murmur, no JVD and no peripheral edema. Abdomen: Feeding tube in place. Soft, nontender. No masses or organomegaly. LABORATORY VALUES: The patient continues to be cytopenic with 200 white cells, 80 platelets, hemoglobin 10.0, hematocrit 29.9. Neutrophils are 5%. The BUN and creatinine are 15 and 0.38. Electrolytes normal except for potassium 3.3. Bilirubin improved at 1.4. AST, ALT, alkaline phosphatase normal. Albumin low at 2.9. Procalcitonin elevated at 0.15. IMAGING: The patient did have a chest, abdomen and pelvis CT on admission showing circumferential wall thickening of the distal esophagus, a soft tissue density mass in the bladder compatible with reported carcinoma, no metastatic disease, presence of percutaneous G-tube, which is now a jejunostomy tube. No abscess. Stable bilateral lung nodules compared to August 28, 2016. In addition, the patient had a small bowel x-ray yesterday showing a patent gastrojejunostomy tube with distal tip positioned in the proximal jejunum. ASSESSMENT AND RECOMMENDATIONS: 1. Neutropenic fever. Dr. Lee is following the patient and has placed him on Zosyn and fluconazole, and stopped vancomycin. The patient is receiving filgrastim as well. 2. Regarding his anorexia and continued regurgitation symptoms, it is hard to understand why the feedings are being regurgitated. I think his perception is that the regurgitation of secretions includes the feedings but he appears to be receiving adequate feedings at this time and needs to symptomatic reassurance that that is happening. I have told him that, unfortunately, he will continue to be very symptomatic for at least the next two weeks after radiation therapy and perhaps longer but will eventually start feeling better. 3. Regarding esophageal cancer, unfortunately, he cannot receive chemotherapy this week since he is profoundly neutropenic and possibly infected.
[2016-11-12 11:02] LABS: BASOPHILS % (AUTO) 2 % (0-3); EOSINOPHILS % (AUTO) 2 % (0-5); MONOCYTES % (AUTO) 41 % (4-12); NEUTROPHILS % (AUTO) 29 % (40-74)
--- NOTE | 2016-11-12 11:03 | PCM.PNMED ---
Subjective Date of Service November 12, 2016 Subjective pt still felt not good, c/o constant burning, tolerated Radiotx yesterday feeds were held due to nausea Exam Vital Signs Vital Sign - Last Date Time Temp Pulse Resp B/P Pulse Ox O2 Delivery O2 Flow Rate FiO2 11/12/16 08:00 82 11/12/16 04:52 36.7 20 113/58 95 Room Air 11/10/16 02:20 2.00 Intake and Output 11/11/16 11/11/16 11/12/16 Cumulative From/Thru 15:00 23:00 07:00 11/09/16 17:51 - 11/12/16 06:17 Intake Total 943 ml 786 ml 5402 ml Output Total 300 ml 975 ml 2230 ml Balance 643 ml -189 ml 3172 ml Intake Oral 0 ml 100 ml IV Total 732 ml 542 ml 4593 ml Tube Feeding 89 ml 124 ml 347 ml Tube Irrigant 122 ml 120 ml 362 ml Output Urine Total 300 ml 975 ml 2230 ml # Voids 4 # Bowel Movements 0 0 Exam elderly male, difficulty of hearing no JVD, dryMM, no LAD RRR, nl s1, s2 no mrg CTAB, no w,c S,ND,NT,normoactive BS+ warm, no edema, pulses 2/[address] IVs and Medications Medications Reviewed: Medications were reviewed in detail Lab and Diagnostics Result Diagram: 11/12/1651411/12/16514 Assessment & Plan Acute, active neutropenic fever, POA, source likely aspiration PNA, viral/bacterial colitis. Although imagings gil CT, CXR, stool PCR were all not suggestive. UA unremarkable. resp PCR neg -pt clinically stable, afebrile with current tx, -s/p cefepime, Levaquin on admission, switched to zosyn, added fluconazole 11/11 , appreciate ID management -switched NS to D5 1/2ns [id number] 100cc/hr as pt is on feeds, HD stable. Cough, sputum, chills, POA, likely suggestive of aspiration pneumonia or pneumonitis given underlying esophageal cancer, -O2 supplement target >95% -abx, antifungal agent as above -suction as needed diarrhea, POA, due to ?hyperosmolar enteral nutrition, exams remained benign for acute abdomen, J-tube in position, no extravasation on Gastrografin study, stool PCR negative. -diarrhea persisted per staffs, patient, -empirically started vanc po to cover c.diff, but stopped given stool study. 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 -appreciate for further Radiation/chemo, radiotx being continued, due until next Tuesday, chemo being held. -neupogen per , neutrophils trended up. -continue PPI bid, famotidine, zofran prn for n/v, Chronic, stable hx of bladder cancer, s/p TURBT, stable on gil CT, follow up with dispo:likely 3-4more days until clinically more stable, appreciate daily PT, home with diet:tube feeding start with jevity1.5 10cc/hr, increase as tolerated per nutrition consult dvt ppx:HSQ Full code, verbally confirmed with patient and at the bedside, will consider palliative care consult if clinically not improving. Time spent 35min Martha Ferrell MD November 12, 2016 11:02
[2016-11-12] MEDS: D5 0.45% NaCl + KCl 20 mEq/L 1,000 ML IV SCH ×2 (12:20→21:00)
[2016-11-12] MEDS ORDERED: 0.9% Sodium Chloride 100 ML ONE (12:25)
[2016-11-12] MEDS: HepLOK Flush 100 unit/mL 5 mL Inj IVFLUSH PRN (14:18)
--- NOTE | 2016-11-12 15:15 | PROG NOTE ---
[address] [address] PROGRESS NOTE PATIENT: ROSY FREEMAN : 1935 MR#: [id number] ADMIT: 11/09/2016 JOB ID: [id number] DATE: 11/12/2016 INFECTIOUS DISEASE FOLLOW UP NOTE: REASON FOR FOLLOWUP: Febrile neutropenia. INTERVAL HISTORY: Recall this is a very unfortunate gentleman with advanced esophageal cancer who is nearing the completion of both radiation and chemotherapy. He was admitted with a single temperature of 38 degrees in the setting of profound neutropenia with an ANC near 0. Over his four days in the hospital, he has improved somewhat but still complains of severe pain in the mouth as well as retrosternal esophageal type pain and these are by far his foremost complaints. He has no significant headache. No significant cough, shortness of breath or abdominal pain, nausea, vomiting or dysuria. He is being fed through a J-tube which was recently placed and he also has an indwelling port. PHYSICAL EXAMINATION: Reveals a slightly more comfortable gentleman. He has been afebrile except for that one temperature spike back on the evening of November 09. He is at 36.7 now. Pulse 82, respiratory rate 20, blood pressure 113/58. He is saturating well on room air. He appears in mild distress secondary to his oral and esophageal symptoms. Lips without notable abnormality. His lungs are relatively clear. The port appears benign. His abdomen is soft and nontender. The J-tube is in the proper position. No skin rash. LABORATORIES: Include white count which has jumped up to 400 and now 29% neutrophils for an ANC of 116. This is a major improvement over yesterday when his ANC was 10. Creatinine 0.44. LFTs basically normal except bilirubin 1.4. Procalcitonin 0.13, and we should probably stop checking it because they are all the same. Fungitell and galactomannan are pending as is a Strongyloides antibody, in this [place] who served in the [facility]. Micro studies include negative blood cultures and a negative MRSA screen. No recent imaging. IMPRESSION: This patient is recovering from a neutropenic episode quite well. The source of his infection remains unclear. It remains uncertain as to whether he had any infection at all or whether this was simply a low-grade fever related to radiation tissue injury or some other process. In any event, we are continuing with a short course of probably a week or so of IV Zosyn and fluconazole as the patient is at very high risk for disseminated fungal infection. RECOMMENDATIONS: 1. Continue with Zosyn and fluconazole through the weekend. 2. The patient will be completing his radiation on November 17 which is this coming Tuesday, and hopefully at that point, he will start to improve symptomatically. 3. Probably continue with the Zosyn and fluconazole for at least three more days or so to complete one week of therapy. 4. We await the many pending serologies including Fungitell, galactomannan and Strongyloides.
[2016-11-12] MEDS: 0.9% Sodium Chloride 250 ML IV SCH (20:48)
[2016-11-12] MEDS: Famotidine Inj 20 MG in IV Premix 1 EACH IV SCH (21:53)
[2016-11-12] MEDS: HYDROmorphone 1 mg/mL Inj IVPUSH PRN (21:54)
[2016-11-12] MEDS: Fluconazole Inj 200 MG in IV Premix 1 EACH IV SCH (23:03)
[2016-11-13] VITALS (8 sets, daily range): BP systolic 95–102; BP diastolic 52–56; PULSE 63–85; RESP 16–20; O2SAT 92–100
[2016-11-13] MEDS: Lactated Ringer's 1,000 ML IV SCH ×3 (01:37→21:37)
[2016-11-13 05:21] LABS: Mean Corpuscular Hemoglobin 32.8 pg (27.0-35.0); Mean Corpuscular Volume 97.1 fL (81-100); Platelet Count 112 bil/L (150-400)
[2016-11-13] MEDS: Piperacillin-Tazo 3.375 Gm Inj 3.375 GM in Dextrose 5% Minibag Plus 50 ML IV SCH ×3 (05:42→21:58)
[2016-11-13 05:46] LABS: Magnesium 1.9 mg/dL (1.6-2.6)
[2016-11-13 05:54] LABS: BASOPHILS % (AUTO) 0 % (0-3); EOSINOPHILS % (AUTO) 5 % (0-5); MONOCYTES % (AUTO) 26 % (4-12); NEUTROPHILS % (AUTO) 21 % (40-74)
[2016-11-13] MEDS: D5 0.45% NaCl + KCl 20 mEq/L 1,000 ML IV SCH ×2 (07:00→17:11)
[2016-11-13] MEDS: Pantoprazole 4 mg/mL 10 mL Inj IVPUSH SCH ×2 (09:21→17:08)
[2016-11-13] MEDS: Potassium Chloride 20 mEq/15 mL 15mL Oral Soln PO SCH ×2 (09:21→17:25)
[2016-11-13] MEDS: Famotidine Inj 20 MG in IV Premix 1 EACH IV SCH ×2 (09:22→21:03)
[2016-11-13] MEDS: Filgrastim 480 mCg/1.6 mL Inj SUBQ SCH (10:56)
--- NOTE | 2016-11-13 11:49 | PCM.PNMED ---
Subjective Date of Service November 13, 2016 Subjective Patient is tolerating daily radiotherapy Feels much better than yesterday, although still complaining of a burning in esophagus and burning at back where he had radiation failed to increase rate of tube feeds, due to nausea, kept at 10cc/hr Exam Vital Signs Vital Sign - Last Date Time Temp Pulse Resp B/P Pulse Ox O2 Delivery O2 Flow Rate FiO2 11/13/16 09:31 Room Air 11/13/16 08:16 36.9 78 18 95/54 95 11/10/16 02:20 2.00 Intake and Output 11/12/16 11/12/16 11/13/16 Cumulative From/Thru 15:00 23:00 07:00 11/09/16 17:51 - 11/13/16 06:42 Intake Total 1927 ml 1182 ml 8511 ml Output Total 600 ml 2830 ml Balance 1327 ml 1182 ml 5681 ml Intake Oral 0 ml 100 ml IV Total 1769 ml 806 ml 7168 ml Tube Feeding 118 ml 216 ml 681 ml Tube Irrigant 40 ml 160 ml 562 ml Output Urine Total 600 ml 2830 ml # Voids 4 # Bowel Movements 1 1 Exam elderly male, difficulty of hearing no JVD, dryMM, no LAD RRR, nl s1, s2 no mrg CTAB, no w,c S,ND,NT,normoactive BS+ warm, no edema, pulses 2/2 [address] IVs and Medications Medications Reviewed: Medications were reviewed in detail Lab and Diagnostics Result Diagram: 11/13/16 0510 11/13/16 0510 Assessment & Plan Acute, active neutropenic fever, POA, source likely aspiration PNA, viral/bacterial colitis. Although imaging igl CT, CXR, stool PCR were all not suggestive. UA unremarkable. resp PCR neg -pt clinically stable, afebrile with current tx, -s/p cefepime, Levaquin on admission, switched to zosyn, added fluconazole 11/11 , appreciate ID management -switched NS to D5 1/2ns [id number] 100cc/hr as pt is on feeds, HD stable. Cough, sputum, chills, POA, likely suggestive of aspiration pneumonia or pneumonitis given underlying esophageal cancer, -O2 supplement target >95% -abx, antifungal agent as above -suction as needed diarrhea, POA, due to ?hyperosmolar enteral nutrition, exams remained benign for acute abdomen, J-tube in position, no extravasation on Gastrografin study, stool PCR negative. -diarrhea seems resolving, -initially empirically started vanc po to cover c.diff, but stopped given stool study. 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 -appreciate for further Radiation/chemo, radiotx being continued, due until next Tuesday, chemo being held. -neupogen per , neutrophils trended up. -continue PPI bid, famotidine, zofran prn for n/v, gr1 burn from radiotx, will apply ice, hydrophillic oint as needed, will consider steroid if it worses Chronic, stable hx of bladder cancer, s/p TURBT, stable on gil CT, follow up with dispo:likely until next Tuesday, Tue, appreciate daily PT, home with diet:tube feeding start with jevity1.5 10cc/hr, increase as tolerated per nutrition consult dvt ppx:HSQ Full code, verbally confirmed with patient and at the bedside, will consider palliative care consult if clinically not improving. Time spent 35min Martha Ferrell MD November 13, 2016 11:49
[2016-11-13] MEDS: Mineral Oil-Petr Hydrophillic 50 Gm Ointment TOPICAL PRN (15:07)
[2016-11-13] MEDS: 0.9% Sodium Chloride 250 ML IV SCH (20:48)
[2016-11-13] MEDS: Fluconazole Inj 200 MG in IV Premix 1 EACH IV SCH (22:46)
[2016-11-14] VITALS (8 sets, daily range): BP systolic 108–115; BP diastolic 46–62; PULSE 63–90; RESP 16–20; O2SAT 95–97
[2016-11-14] MEDS: D5 0.45% NaCl + KCl 20 mEq/L 1,000 ML IV SCH ×2 (04:14→17:10)
[2016-11-14] MEDS: Piperacillin-Tazo 3.375 Gm Inj 3.375 GM in Dextrose 5% Minibag Plus 50 ML IV SCH ×3 (05:36→21:55)
[2016-11-14 06:05] LABS: Magnesium 1.8 mg/dL (1.6-2.6); Phosphorus 1.5 mg/dL (2.5-4.9)
[2016-11-14 06:36] LABS: Mean Corpuscular Hemoglobin 32.7 pg (27.0-35.0); Mean Corpuscular Volume 97.5 fL (81-100); Platelet Count 124 bil/L (150-400)
[2016-11-14 06:37] LABS: BASOPHILS % (AUTO) 1 % (0-3); EOSINOPHILS % (AUTO) 0 % (0-5); MONOCYTES % (AUTO) 10 % (4-12); NEUTROPHILS % (AUTO) 60 % (40-74)
[2016-11-14] MEDS: Lactated Ringer's 1,000 ML IV SCH ×2 (07:37→17:10)
--- NOTE | 2016-11-14 09:28 | PCM.PNMED ---
Subjective Date of Service November 14, 2016 Subjective pt looked stronger, tolerateing 14cc/hr feeds but no more than that Hydrophilic oint worked well on back burn has intermittent nausea, no vomiting labs also improved Exam Vital Signs Vital Sign - Last Date Time Temp Pulse Resp B/P Pulse Ox O2 Delivery O2 Flow Rate FiO2 11/14/16 09:01 36.8 69 16 108/48 97 Room Air 11/10/16 02:20 2.00 Intake and Output 11/13/16 11/13/16 11/14/16 Cumulative From/Thru 15:00 23:00 07:00 11/09/16 17:51 - 11/14/16 05:37 Intake Total 0 ml 1469 ml 9980 ml Output Total 300 ml 3130 ml Balance -300 ml 1469 ml 6850 ml Intake Oral 0 ml 100 ml IV Total 1469 ml 8637 ml Tube Feeding 681 ml Tube Irrigant 562 ml Output Urine Total 300 ml 3130 ml # Voids 4 # Bowel Movements 1 2 Exam elderly male, difficulty of hearing no JVD, dryMM, no LAD RRR, nl s1, s2 no mrg CTAB, no w,c S,ND,NT,normoactive BS+ warm, no edema, pulses 2/2 J-tube in [address] back: mild diffuse erythema on mid thoracic no demarcation, mild warm, nontender IVs and Medications Medications Reviewed: Medications were reviewed in detail Lab and Diagnostics Result Diagram: 11/14/1652311/14/16523 Assessment & Plan Acute, active neutropenic fever, POA, source likely aspiration PNA, viral/bacterial colitis. Although imaging gil CT, CXR, stool PCR were all not suggestive. UA unremarkable. resp PCR neg -pt clinically stable, afebrile with current tx, -s/p cefepime, Levaquin on admission, switched to zosyn, added fluconazole 11/11 , appreciate ID management -switched NS to D5 1/2ns [id number] 100cc/hr as pt is on feeds, HD stable. Cough, sputum, chills, POA, likely suggestive of aspiration pneumonia or pneumonitis given underlying esophageal cancer, -O2 supplement target >95% -abx, antifungal agent as above -suction as needed diarrhea, POA, due to ?hyperosmolar enteral nutrition, exams remained benign for acute abdomen, J-tube in position, no extravasation on Gastrografin study, stool PCR negative. -diarrhea seems resolving, -initially empirically started vanc po to cover c.diff, but stopped given stool study. 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 -appreciate for further Radiation/chemo, radiotx being continued, due until next Tuesday daily, chemo being held. -neupogen per , neutrophils normalized, therefore it was stopped today. -continue PPI bid, famotidine, zofran prn for n/v, gr1 burn from radiotx, continue ice bag, hydrophillic oint as needed, will consider steroid if it worses Chronic, stable hx of bladder cancer, s/p TURBT, stable on gil CT, follow up with dispo:likely until next Tuesday, Tue, appreciate daily PT, home with diet:tube feeding start with jevity1.5 10cc/hr, increase as tolerated per nutrition consult dvt ppx:HSQ Full code, verbally confirmed with patient and at the bedside, will consider palliative care consult if clinically not improving. Time spent 35min Martha Ferrell MD November 14, 2016 09:28
[2016-11-14] MEDS: Pantoprazole 4 mg/mL 10 mL Inj IVPUSH SCH ×2 (09:55→17:10)
[2016-11-14] MEDS: Potassium Chloride 20 mEq/15 mL 15mL Oral Soln PO SCH ×2 (09:56→17:10)
[2016-11-14] MEDS: Sodium-Potassium Phosphorus Packet TUBE SCH ×4 (09:56→21:55)
[2016-11-14] MEDS: Famotidine Inj 20 MG in IV Premix 1 EACH IV SCH ×2 (09:57→20:22)
--- NOTE | 2016-11-14 14:06 | PROG NOTE ---
[address] [address] PROGRESS NOTE PATIENT: ROSY FREEMAN : 1935 MR#: [id number] ADMIT: 11/09/2016 JOB ID: [id number] DATE: 11/14/2016 REASON FOR FOLLOWUP: Neutropenic fever. INTERVAL HISTORY: The patient states that overall he is feeling a bit better, but he is quite frustrated by how badly he still feels. He is profoundly weak with severe sore throat and esophageal pain. Recall that he has esophageal cancer and is getting radiation as well as chemotherapy on an ongoing basis and was admitted for neutropenic fevers after chemotherapy. He has no more of the fevers and denies chills. He has no significant headache. He does report his skin feels burned all across his upper back which is attributed to radiation as it is bilateral. He does have nausea and he reports he is having diarrhea, about 2-4 times per day which he finds very discouraging. PHYSICAL EXAMINATION: Reveals a gentleman who has been afebrile since admission five days ago except for a single temperature to 38.0 degrees right after admission. Pulse 72, respiratory rate 16, blood pressure 108/48, saturating 97% on room air. Examination of the oral cavity is unremarkable in that I do not see anything in the posterior pharynx. Patient is generally cantankerous today as he is upset about just feeling bad for so long, but he is alert and oriented. Examination of back is notable for diffuse band of erythema which extends all the way around the upper posterior torso at the upper thoracic level. This has the appearance of a sunburn which seems likely due to radiation as there are no vesicles or unilaterality to it. Lungs relatively clear bilaterally today. Abdomen is soft and nontender. There is a J-tube in place through which the patient is being fed. LABORATORY STUDIES: Include a white count which has normalized. Recall that when he came in, he had a total of 10 polys. Today, he has got a total white count of 8000 and a neutrophil count greater than 5000. Creatinine 0.47. Albumin 2.6. Procalcitonins have all been less than 0.2 and several have been done. Urinalysis had 0-5 white cells. Fungitell negative. Galactomannan and Strongyloides are pending. A MRSA screen of the nares was negative. Blood cultures negative and respiratory and stool PCR negative on November 10, when he came in. IMPRESSION: This patient has had a dramatic recovery of his white cells and he now has a total of 5000 neutrophils. He looks completely nontoxic at this time and I wonder if he ever had an infection or whether this was some sort of radiation induced fever while he happened to be neutropenic. In any case, the patient has done very well with his antibiotic. RECOMMENDATIONS: 1. I would continue the Zosyn and fluconazole through the morning of November 16 to complete a week of therapy. 2. The patient will be receiving his last dose of radiation on that same day, and I think it may be very reasonable to discharge him on November 16 as he will have finished his radiation as well as all of his antibiotics. 3. If the patient is to continue on TPN, it may be reasonable to continue the fluconazole a bit thereafter, though I think that is a judgment call and likely not of great significance at this point. 4. Given that his PCR is negative for C. diff I think we could use antimotility agents as needed to control his diarrhea. 5. Given the absence of any ongoing ID issues and a definitive plan to end therapy in the next couple days, with stop orders already written, ID will go ahead and sign off. Thank you very much for this consult.
[2016-11-14] MEDS: Ondansetron 2 mg/mL 2 mL Inj IVPUSH PRN (20:22)
[2016-11-14] MEDS: 0.9% Sodium Chloride 250 ML IV SCH (20:23)
[2016-11-14] MEDS: Fluconazole Inj 200 MG in IV Premix 1 EACH IV SCH (23:07)
[2016-11-15] VITALS (7 sets, daily range): BP systolic 104–115; BP diastolic 56–71; PULSE 70–88; RESP 18–20; O2SAT 93–98
[2016-11-15] MEDS: Lactated Ringer's 1,000 ML IV SCH ×3 (00:22→22:45)
[2016-11-15] MEDS: D5 0.45% NaCl + KCl 20 mEq/L 1,000 ML IV SCH ×3 (02:54→15:38)
[2016-11-15] MEDS: Piperacillin-Tazo 3.375 Gm Inj 3.375 GM in Dextrose 5% Minibag Plus 50 ML IV SCH ×3 (04:49→22:24)
[2016-11-15 05:39] LABS: Magnesium 1.8 mg/dL (1.6-2.6); Phosphorus 2.3 mg/dL (2.5-4.9)
[2016-11-15 06:05] LABS: BASOPHILS % (AUTO) 0 % (0-3); EOSINOPHILS % (AUTO) 0 % (0-5); MONOCYTES % (AUTO) 9 % (4-12); Mean Corpuscular Hemoglobin 32.7 pg (27.0-35.0); Mean Corpuscular Volume 98.1 fL (81-100); NEUTROPHILS % (AUTO) 65 % (40-74); Platelet Count 128 bil/L (150-400)
[2016-11-15] MEDS: Pantoprazole 4 mg/mL 10 mL Inj IVPUSH SCH ×2 (06:30→17:12)
[2016-11-15] MEDS ORDERED: LidocaineVisc 2%:Antacid 1:1 10 mL Syringe PO PRN (10:05)
[2016-11-15] MEDS ORDERED: MetoCLOpramide 1 mg/mL 10 mL UDC Syrup PO PRN (10:05)
[2016-11-15] MEDS: Famotidine Inj 20 MG in IV Premix 1 EACH IV SCH ×2 (10:44→20:19)
[2016-11-15] MEDS: Sodium-Potassium Phosphorus Packet TUBE SCH ×4 (10:47→22:44)
[2016-11-15] MEDS: Potassium Chloride 20 mEq/15 mL 15mL Oral Soln PO SCH ×2 (10:47→17:12)
[2016-11-15] MEDS: HepLOK Flush 100 unit/mL 5 mL Inj IVFLUSH PRN (14:39)
--- NOTE | 2016-11-15 17:06 | PCM.PNMED ---
Subjective Date of Service November 15, 2016 Subjective Patient feels miserable he still spitting up large amounts of sputum, nauseated having chest/epigastric pain. Not so much dyspnea and he is not actually coughing up phlegm he is not sure where it is coming from. What is clear as he is absolutely miserable. He is also complaining of diarrhea from feedings Exam Vital Signs Vital Sign - Last Date Time Temp Pulse Resp B/P Pulse Ox O2 Delivery O2 Flow Rate FiO2 11/15/16 11:50 83 18 105/71 97 Room Air 11/15/16 04:15 36.6 11/10/16 02:20 2.00 Intake and Output 11/14/16 11/14/16 11/15/16 Cumulative From/Thru 15:00 23:00 07:00 11/09/16 17:51 - 11/15/16 06:39 Intake Total 0 ml 1641 ml 1625 ml 40826 ml Output Total 690 ml 800 ml 1250 ml 5870 ml Balance -690 ml 841 ml 375 ml 7376 ml Intake Oral 0 ml 0 ml 0 ml 100 ml IV Total 1065 ml 1391 ml 09609 ml Tube Feeding 221 ml 114 ml 1016 ml Tube Irrigant 355 ml 120 ml 1037 ml Output Urine Total 550 ml 800 ml 1250 ml 5730 ml Gastric Drainage Total 120 ml 120 ml Other 20 ml 20 ml # Voids 5 9 # Bowel Movements 2 4 Exam Gen.- A+ O 3 thin almost cachectic male sitting up at the bedside coughing quite brought the sputum into a vomit bag at regular intervals. Eyes- open conjunctiva clear, pupils equal nonicteric ENT- ears normal, nose normal, hearing intact Neck- supple/trach midline CVS- RRR no murmur or gallop Lungs- CTA no wheezes or rhonchi no accessory muscle usage GI- NABS/NT soft Musc- moving 4 no obvious deformity Neuro- cranial nerves II through XII intact to gross examination, nonfocal Patient seems to have a bit of a radiation burn on his back he states it is terribly painful it is only subtly red and tanning Skin- warm and dry, no rashes/lesions/wounds noted Psych- pleasant and appropriate, Lab and Diagnostics Result Diagram: 11/15/16 0445 11/15/16 0445 Assessment & Plan 81-year-old male admitted 11/09 esophageal malignancy having dysphagia and getting radiation. 11/15 patient continues to be miserable with chest pain and sputum problems we will check CXR. complaints of diarrhea which is probably from the feedings. We will give trial to Reglan and GI cocktail today. neutropenic fever, POA, source likely aspiration PNA, viral/bacterial colitis. Although imaging gil CT, CXR, stool PCR were all not suggestive. UA unremarkable. resp PCR neg -pt clinically stable, afebrile with current tx, -s/p cefepime, Levaquin on admission, switched to zosyn all DC'd as of 11/15, added fluconazole 11/11, appreciate ID management -switched NS to D5 1/2ns [id number] 100cc/hr as pt is on feeds, HD stable. Cough, sputum- last CXR 11/09 repeating 11/15 he is on no antibiotic coverage for aspiration at this time. In addition to scopolamine patch to dry secretions I am trying H1RA -O2 supplement target >95% -abx, antifungal agent as above -suction as needed diarrhea, POA, due to ?hyperosmolar enteral nutrition, exams remained benign for acute abdomen, J-tube in position, no extravasation on Gastrografin study, stool PCR negative. 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 -appreciate for further Radiation/chemo, radiotx being continued, due until next Tuesday daily, chemo being held. -neupogen per , neutrophils normalized, therefore it was stopped today. -continue PPI bid, famotidine, zofran prn for n/v, trial of GI cocktail and Reglan 11/15 gr1 burn from radiotx, continue ice bag, hydrophillic oint as needed, will consider steroid if it worses Chronic, stable- hx of bladder cancer, s/p TURBT, stable on gil CT, follow up with Dr.Hong mata:likely until next Tuesday, Tue, appreciate daily PT, home with HH diet:tube feeding start with jevity1.5 10cc/hr, increase as tolerated per nutrition consult dvt ppx:HSQ Full code, verbally confirmed with patient and at the bedside, will consider palliative care consult if clinically not improving. Vignesh Olmstead MD November 15, 2016 17:06
--- NOTE | 2016-11-15 20:17 | DRSVH ---
PROCEDURE: X-RAY CHEST, TWO VIEWS ([id number]) INDICATIONS: sputum, looking for possible aspiration pneumonia TECHNIQUE: 2 views of the chest were acquired. COMPARISON: [facility], , CHEST 1 VIEW, 08/28/2016, 15:44. FINDINGS: Surgical changes and devices: Left-sided john catheter, tip of which is in the lower SVC. Catheter p rojects over the left or quadrant. Lungs and pleura: No pleural effusions or pneumothorax. Mild patchy opacity at the left lung base is present. Mediastinum: Mediastinal contours are normal. Heart size is normal. Bones and chest wall: No suspicious bony abnormalities. Soft tissues appear unremarkable. IMPRESSION: Left lung base pneumonia versus aspiration. Follow up plain films of the chest are recomm ended to ensure resolution, and to exclude underlying or central malignancy. Dictated by: Raulito Mahmood M.D. on 11/15/2016 at 20:15 Approved by: Raulito Mahmood M.D. on 11/15/2016 at 20:16
[2016-11-15] MEDS: 0.9% Sodium Chloride 250 ML IV SCH (20:48)
[2016-11-15] MEDS: Fluconazole Inj 200 MG in IV Premix 1 EACH IV SCH (22:39)
[2016-11-16 00:46] VITALS: BP 105/69; PULSE 72; RESP 20; O2SAT 96
[2016-11-16] MEDS: D5 0.45% NaCl + KCl 20 mEq/L 1,000 ML IV SCH ×2 (02:34→16:30)
[2016-11-16 03:22] LABS: Mean Corpuscular Hemoglobin 32.1 pg (27.0-35.0); Mean Corpuscular Volume 98.2 fL (81-100)
[2016-11-16 04:05] LABS: Magnesium 1.8 mg/dL (1.6-2.6)
[2016-11-16 04:13] VITALS: BP 117/71; PULSE 81; RESP 20; O2SAT 95
[2016-11-16] MEDS: Piperacillin-Tazo 3.375 Gm Inj 3.375 GM in Dextrose 5% Minibag Plus 50 ML IV SCH (04:49)
[2016-11-16] MEDS: Pantoprazole 4 mg/mL 10 mL Inj IVPUSH SCH ×2 (09:14→16:49)
[2016-11-16] MEDS: Famotidine Inj 20 MG in IV Premix 1 EACH IV SCH ×2 (09:14→20:02)
[2016-11-16] MEDS: Potassium Chloride 20 mEq/15 mL 15mL Oral Soln PO SCH ×2 (09:14→17:43)
[2016-11-16] MEDS: Lactated Ringer's 1,000 ML IV SCH ×2 (09:37→19:37)
[2016-11-16] MEDS ORDERED: HYDROcodone-APAP 7.5-325 mg/15 mL 15 mL Solution JT SCH (10:35)
--- NOTE | 2016-11-16 10:36 | PCM.CONPAL ---
Date of Service November 16, 2016 Date of Hospital Admission: November 09, 2016 at 17:19 Date of Palliative Consult: November 16, 2016 Requesting Provider: Vignesh Olmstead MD Reason Palliative Care Consult: Pain, Other Symptoms (anxiety, diarrhea) Reason for Consultation Palliative Care received verbal order from Dr Olmstead 11/16/16 to assist with symptom management. Patient was admitted 11/09/16. He lives at home with his . Vesta Hamm () [phone], . Palliative Care to follow. Hospital Unit @time of consult: Orthopedic/Surgical Care (1014) Palliative Care Recommendation Summary of palliative recommendations: -Symptom management: The palliative team was asked by Dr. Olmstead of the hospitalist team to assist with pain, anxiety, improved control of his secretions and diarrhea. The goal for the palliative team is to assist with making patient more comfortable with regard to his level of pain and the degree that his chronic condition causes him distress. - Pain: Patient has considerable distress from his level of burning pain in his chest with scale of 7/10 and not amenable with his current hospital PRN opioid medications. Patient is narcotic naive at baseline. 1. Will stop his PRN opioids and start Hydrocodone/APAP 7.5/325 mg/15ml at 15 ml Q6H via J-tube. We will continue to monitor patients pain level and titrate his IV pain medication appropriately. 2. Will add one time dose of Oxycodone 5 mg liquid to be given via J-tube. We will re-evaluate pain control in AM and consider stopping Hydrocodone/APAP in favor of just Oxycodone if needed. - Excessive Secretions: saliva that he cannot swallow due to his esophageal mass and dysphagia. 1. Patient also states that it is distressing to him that he is not able to control his secretions. Patient has been on Scopolamine patch while in house, but reports noticing no reduction in the amounts of secretions he makes. 2. Will start scheduled Glycopyrrolate IV in addition to his scopolamine patch. -Diarrhea: 1. Given patients diarrhea and negative stool PCR and negative C. diff will start Imodium 2mg via J-tube q 12H -DPOA/Advanced Directives/POLST: 1. Currently Full code -Family/emotional support: Vesta Hamm -Spiritual support: not discussed Patient Goals: not discussed, this consult was for symptom management only (at this point). Additional Medical Diagnoses with primary management by Hospitalist team include : # Neutropenic fever, POA, - Source likely aspiration PNA, viral/bacterial colitis. Although imaging gil CT , CXR, stool PCR were all not suggestive. UA unremarkable. resp PCR neg - Patient is currently clinically stable, and afebrile with current tx. - s/p cefepime, Levaquin on admission, switched to zosyn all DC'd as of 11/15, added fluconazole 11/11, appreciate ID management - Switched NS to D5 1/2ns [id number] 100cc/hr as pt is on feeds, HD stable. # Cough, productive clear sputum. POA - last CXR 11/09 repeating 11/15 showed left lung base pneumonia vs aspiration. - CT abdomen and pelvis with contrast on 11/10/2015: Bilateral lung nodules stable compared to 08/28/16. - Patient has no antibiotic coverage for aspiration at this time. - In addition to scopolamine patch to dry secretions. Adding Histamine 1 receptor antagonist - O2 supplement target >95% - Antimicrobials-->, antifungal agent as above - Suction as needed # Diarrhea, POA, - Likely due to hyperosmolar enteral nutrition, exams remained benign for acute abdomen, J-tube in position, no extravasation on Gastrografin study, stool PCR negative. 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 - Patient is on concurrent chemoRtx. - CT abdomen and pelvis with contrast on 11/10/2015: Circumferential wall thickening involving the esophagus compatible with known esophageal carcinoma. No evidence of distal metastatic disease. - Appreciate for further Radiation/chemo, radiotx being continued, due until next Tuesday, daily chemo being held. - Neupogen per , neutrophils normalized, therefore it was stopped today. - Will continue PPI bid, famotidine, zofran prn for n/v, trial of GI cocktail and Reglan 11/15 # Gr1 burn from radiotx, - Continue ice bag, hydrophillic oint as needed, will consider steroid if it worses Chronic, stable- hx of bladder cancer, s/p TURBT, stable on gil CT, follow up with - CT abdomen and pelvis with contrast on 11/10/2015: Soft tissue density mass in the urinary bladder compatible with reported carcinoma Problems: Disposition will remain in house likely until next Tuesday, Tue, appreciate daily PT, home with HH when medically stable. diet:tube feeding start with jevity1.5 10cc/hr, increase as tolerated per nutrition consult dvt ppx:HSQ Full code, verbally confirmed with patient and at the bedside, will consider palliative care consult if clinically not improving. Resuscitation Status Resuscitation Status: CPR: Attempt Resuscitation POLST Updates/Changes Previous POLST?: No . Pain: Severe (Moderate to severe pain in an opioid naive individual. ) Symptom management: Anxiety, Agitation, Pain Pt History History of Present Illness 81-year-old male with hx of bladder cancer, s/p TURBT, stable on in house gil CT , followed by , recent hx of stage IIIA, T3N1 adenocarcinoma of the distal esophagus with hx of dysphagia, on concurrent chemotherapy/radiation ( reportedly 28 rounds of radiotx) and currently followed by Dr Puga. Patient was sent by Dr. Puga, directly to hospital. His last Chemo was 5 days prior to this admission. The Pt reportedly tolerated his round of chemotherapy well. Patient received PEG that was inserted in August by Dr Steele secondary to his diagnosis of esophageal cancer on EGD and due to dysphagia. The patients denied any hx of aspiration. After the patients most recent chemo round, he reportedly showed improvement in tolerating PO liquid. Three days prior to day of admit patient had been suffering cough with yellowish thick sputum, multiple episodes of watery diarrhea, intermittent nausea, but denied vomiting, and SOB. Patient was seen at [place] for J-tube insertion the day prior to hospital admission. He reportedly tolerated this procedure well. Throughout the night prior to presentation the patient continued to have persistent cough, sputum production, and chills. Patient has chronic burning sensation in the chest, and sore throat. He denied cardiac/pulmonary dz, denied chest pain, Hospital Course: Today is hospital day 8. So far during this hospitalization patient has had neutropenic fever that was present on admission that is thought to be secondary to aspiration type pneumonia. He has had a complex work up to include CXR, Gil CT, stool PCR, C. diff, Respiratory PCR, Fungitel, and UA that have all been negative to date. Patient had received cefepime, Levaquin initially on admit but then was switched to Zosyn, and with all antibiotics since stopped. ID was consulted and patient is currently on Fluconazole. Patient currently is stable clinically and afebrile. His J-tube is currently in place. Per radiotx is being continued, and he is due until next Tuesday, daily chemo being held. He has a possible esophagectomy in his future. Since his admit patient has continued to receive tube feedings and complains of persistent diarrhea. Patient was placed on a trial of Reglan. He reports feeling quite miserable from his persistent sputum production as well as the burning sensation in his chest. He has been receiving scopolamine patch in house as well as at home with minimal success. Past Medical History Significant PMH Noted: 1.Bladder cancer, last seen by , plan was to repeat cystoscopy in 11/10, which was canceled as pt was getting active ChemoRtx for esophageal cancer. 2.Osteoarthritis PAST SURGICAL HISTORY: 1.Surgery for bladder cancer (TURBT?) 2.Double knee replacement 3.Hip replacement (right) 4.Laminectomy at L5 6 PAST RADIATION HISTORY: Note that he has not had any previous radiation therapy. FAMILY HISTORY: Esophageal cancer and a brother, axillary cancer in a maternal aunt and cancer of unknown primary and a brother and prostate cancer in another brother. SOCIAL HISTORY: He is . He is a never smoker. He used chewing tobacco for approximately 50 years having quit in June 2016. He does not use alcohol. He ran a [employer] for many years before he retired. 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 Social History Occupation: Retired [employer] Palliative Performance Scale PPS Patient Status: Current PPS Ambulation: Reduced (uses walker) PPS Activity: Unable to do most activity PPS Self-Care: Occasional assistance necessary PPS Intake: Normal (Patient gets nutrition through J-tube) PPS Conscious Level: Full Performance Scale: 60% ADLs ADL Patient Status: Current ADL Ambulation: Reduced ADL Dressing: Occasional assistance necessary ADL Feeding: Total care ADL Hygene/bathing: Considerable assistance required ADL Transfers: Occasional assistance necessary Medications Current Medications: Current Medications Metoclopramide HCl 5 mg Q6H PRN PO; Start 11/15/16 at 10:05 Miscellaneous 10 ml Q4H PRN PO; Start 11/15/16 at 10:05 Loratadine 10 mg HS PO; Start 11/16/16 at 21:00 Scheduled PRN Metoclopramide (Metoclopramide) 5 Mg Tablet 5 MG PO QID PRN PRN For Nausea Miscellaneous Medications Scopolamine (Transderm-Scop) 1 Each Patch.td72 1 EACH TD Objective Findings Exam Vital Sign - Last Date Time Temp Pulse Resp B/P Pulse Ox O2 Delivery O2 Flow Rate FiO2 11/16/16 04:13 36.7 81 20 117/71 95 Room Air 11/10/16 02:20 2.00 Intake and Output 11/15/16 11/15/16 11/16/16 Cumulative From/Thru 15:00 23:00 07:00 11/09/16 17:51 - 11/16/16 05:34 Intake Total 1277 ml 1440 ml 35330 ml Output Total 825 ml 1675 ml 8370 ml Balance 452 ml -235 ml 7593 ml Intake Oral 0 ml 50 ml 150 ml IV Total 915 ml 960 ml 42595 ml Tube Feeding 121 ml 189 ml 1326 ml Tube Irrigant 241 ml 241 ml 1519 ml Output Urine Total 825 ml 1675 ml 8230 ml Gastric Drainage Total 120 ml Other 20 ml # Voids 9 # Bowel Movements 2 2 8 General: Alert/Oriented x3 HEENT: Atraumatic, PERRLA, Mucous Membranes Dry Heart: Exam Unremarkable, Regular Rate/Rhythm, No Murmurs/Rubs/Gallops Lungs: Diminished (Absent sounds of air movement on lower 1/3 of left lung) Abdomen: Soft, Non Tender, PEG/Feeding tube in place Extremities: Pulses Palpable x4, No Edema Lab/Diagnostics Lab and Imaging results reviewed in detail in EMR. Time spent Total time 70 minutes; >50% face to face with patient and/or family, providing counselling regarding symptom management plans and recommendations, and in care coordination with his/her medical teams. Attending Statement Dr. Espinosa was physically present and available for all parts of patient interview, exam by resident. She and resident discussed sx management plan and she approves of plan as outlined by Dr. Moreau above. Rasheed Rocha DO November 16, 2016 10:36 Esther Espinosa MD November 16, 2016 14:03
[2016-11-16 10:47] VITALS: PULSE 72
[2016-11-16] MEDS: Sodium-Potassium Phosphorus Packet TUBE SCH ×4 (11:10→21:18)
[2016-11-16] MEDS ORDERED: oxyCODONE 1 mg/mL 5 mL Liquid JT STA (12:52)
[2016-11-16] MEDS: Glycopyrrolate 0.2 MG/ML 1mL Inj IVPUSH SCH ×5 (14:45→22:30)
[2016-11-16 15:52] VITALS: BP 113/67; PULSE 73; RESP 18; O2SAT 95
--- NOTE | 2016-11-16 16:40 | PCM.PNMED ---
Subjective Date of Service November 16, 2016 Subjective Patient was sleeping. Apparently he is still having coughing, sputum production and diarrhea. He did not take the GI cocktail because he cannot swallow it. Exam Vital Signs Vital Sign - Last Date Time Temp Pulse Resp B/P Pulse Ox O2 Delivery O2 Flow Rate FiO2 11/16/16 15:52 36.7 73 18 113/67 95 Room Air 11/10/16 02:20 2.00 Intake and Output 11/15/16 11/15/16 11/16/16 Cumulative From/Thru 14:59 22:59 06:59 11/09/16 17:51 - 11/16/16 05:34 Intake Total 1277 ml 1440 ml 20080 ml Output Total 825 ml 1675 ml 8370 ml Balance 452 ml -235 ml 7593 ml Intake Oral 0 ml 50 ml 150 ml IV Total 915 ml 960 ml 06070 ml Tube Feeding 121 ml 189 ml 1326 ml Tube Irrigant 241 ml 241 ml 1519 ml Output Urine Total 825 ml 1675 ml 8230 ml Gastric Drainage Total 120 ml Other 20 ml # Voids 9 # Bowel Movements 2 2 8 Exam Gen.-Sleeping, NAD cachectic male Eyes-close no drainage ENT- ears normal, nose normal, hearing intact Neck- supple/trach midline CVS-normal rate Lungs- no accessory muscle usage GI-flat Musc- moving 4 no obvious deformity Neuro- cranial nerves II through XII intact to gross examination, nonfocal Patient seems to have a bit of a radiation burn on his back he states it is terribly painful it is only subtly red and tanning Skin- warm and dry, no rashes/lesions/wounds noted Psych-sleeping Lab and Diagnostics Result Diagram: 11/16/16 0320 11/16/16 0320 Assessment & Plan 81-year-old male admitted 11/09 esophageal malignancy having dysphagia and getting radiation. 11/15 patient continues to be miserable with chest pain and sputum problems we will check CXR. complaints of diarrhea which is probably from the feedings. We will give trial to Reglan and GI cocktail today. 11/16 thank you for palliative care consult will follow for relief from symptoms. Thank you Dr. Lee/infectious disease assistance appreciated. neutropenic fever, POA, source likely aspiration PNA, viral/bacterial colitis. Although imaging gil CT, CXR, stool PCR were all not suggestive. UA unremarkable. resp PCR neg -pt clinically stable, afebrile with current tx, -s/p cefepime, Levaquin on admission, switched to zosyn, fluconazole 11/11-11/16 , appreciate ID management -switched NS to D5 1/2ns [id number] 100cc/hr as pt is on feeds, HD stable. Cough, sputum- last CXR 11/09 repeating 11/15 he is on no antibiotic coverage for aspiration at this time. In addition to scopolamine patch to dry secretions I am trying H1RA -O2 supplement target >95% -abx, antifungal agent as above -suction as needed -Scopolamine patch, loratadine added 11/15, glycopyrrolate added 11/16 diarrhea, POA, due to ?hyperosmolar enteral nutrition, exams remained benign for acute abdomen, J-tube in position, no extravasation on Gastrografin study, stool PCR negative. 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 -appreciate for further Radiation/chemo, radiotx being continued, due until next Tuesday daily, chemo being held. -neupogen per , neutrophils normalized, therefore it was stopped today. -continue PPI bid, famotidine, zofran prn for n/v, Reglan 11/15 gr1 burn from radiotx, continue ice bag, hydrophillic oint as needed, will consider steroid if it worses Chronic, stable- hx of bladder cancer, s/p TURBT, stable on gil CT, follow up with dispo:likely until next Tuesday, Tue, appreciate daily PT, home with HH diet:tube feeding start with jevity1.5 10cc/hr, increase as tolerated per nutrition consult dvt ppx:HSQ Full code, verbally confirmed with patient and at the bedside, will consider palliative care consult if clinically not improving. Resuscitation Status: CPR: Attempt Resuscitation Vignesh Olmstead MD November 16, 2016 16:40
[2016-11-16] MEDS: HYDROcodone-APAP 7.5-325 mg/15 mL 15 mL Solution JT SCH ×2 (16:50→23:41)
[2016-11-16] MEDS: Loperamide 1 mg/5 mL 120 mL Liquid JT SCH (20:30)
[2016-11-16 20:48] VITALS: BP 105/65; PULSE 72; RESP 18; O2SAT 94
[2016-11-16] MEDS: 0.9% Sodium Chloride 250 ML IV SCH (20:48)
--- NOTE | 2016-11-16 22:46 | PROG NOTE ---
[address] [address] PROGRESS NOTE PATIENT: ROSY FREEMAN : 1935 MR#: [id number] ADMIT: 11/09/2016 JOB ID: [id number] DATE: 11/16/2016 This is a 81-year-old man who was hospitalized on November 09 during treatment for esophageal cancer for extreme weakness and debilitation, severe symptoms of regurgitation of secretions and some of his tube feedings, and abdominal pain. In addition, he was found to be severely neutropenic. 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 He was hospitalized, treated with antibiotics, filgrastim, IV fluids, and continued tube feedings and supportive care. He has also had diarrhea but is C. difficile negative. He has been treated with Zosyn and fluconazole. It was anticipated that he would be able to go home today or tomorrow and I returned to discuss with him post discharge plans. Subjectively, he still feels horrible, he states. He feels less uncomfortable than on admission and he has less regurgitation but is still extremely weak. He is sitting with his . She is very concerned about whether he can get enough volume of tube feedings to sustain him, and how we would have his general care and we discussed the possibility of going to a prison from the hospital rather than going directly home. Both the patient and the are willing to accept that if the hospitalist team wishes to institute that. Currently, he has a very dry mouth. His abdominal pain and nausea abated, but he still feels very weak. OBJECTIVE: Temp is 36.7, pulse 73, respiratory rate 18, blood pressure 113/67, pulse ox 95%. His I and O's show that he received 2306 IV yesterday and 235 tube feedings yesterday, already 465 today tube feedings with additional 602 of tube irrigant. Weight is 96.6 kg, stable, compared to admission. General: He appears weak and tired. He is very anxious. He is complaining of dry mouth, regurgitation and generalized discomfort, although he states he feels better than on admission. He states he likes the care here and does not wish to go home yet. Head and neck: Pupils equal, round, reactive. No icterus or conjunctivitis. Oral mucosa is dry, but without thrush or lesions. Lymph nodes are negative in the neck and supraclavicular area. Lungs: Clear to auscultation anteriorly and laterally. Cardiac: Rhythm is regular without murmur. There is 1+ peripheral edema. Abdomen: Bowel sounds active. Soft, nontender without palpable masses. LABORATORY VALUES: The white count has come up nicely to 4.7 yesterday. Differential showed 65% neutrophils and white count 7.8. His hemoglobin today is 10.6, hematocrit 32.4, platelets 120. The BUN and creatinine 2 and 0.54. The albumin yesterday was 2.7, currently the calcium is 8.1, glucose 116. The AST, ALT, alkaline phosphatase and bilirubin were all normal yesterday. IMAGING: The patient had a chest, abdomen and pelvis CT on November 09, 2016, showing circumferential wall thickening in the esophagus compatible with known esophageal carcinoma, soft tissue density in the urinary bladder compatible with known carcinoma. No metastatic disease. Percutaneous gastrojejunostomy tube. Bilateral lung nodules, stable compared to August 28, 2016, and no evidence of abscess. ASSESSMENT AND RECOMMENDATIONS: This is a patient who is quite frail, but who made it through all of his radiation therapy for esophageal cancer and most of his chemotherapy with weekly Taxol carboplatin. The original plan was for this to be preoperative chemoradiotherapy; whether he is strong enough to undergo esophagectomy will have to be determined. Right now, he is too weak and ill to consider that. It would be appropriate for him to be discharged home with home care or to a prison where his tube feedings can be advanced slowly. His is very concerned about who will take responsibility for that, and I explained that this will have to be worked out prior to discharge, but that if he goes to the prison, that will be taken care of there. Regarding esophageal cancer, I reassured the patient that he is up for no further chemotherapy and that he is now under surveillance until he gets enough strength to be re-evaluated for possible surgery. At this point in time, he is not well enough to consider that. Will follow up with the patient 2-3 days after discharge.
[2016-11-17] MEDS: Glycopyrrolate 0.2 MG/ML 1mL Inj IVPUSH SCH ×12 (00:30→22:30)
[2016-11-17] MEDS: D5 0.45% NaCl + KCl 20 mEq/L 1,000 ML IV SCH (03:19)
[2016-11-17 04:43] VITALS: BP 112/58; PULSE 66; RESP 20; O2SAT 96
[2016-11-17] MEDS: HYDROcodone-APAP 7.5-325 mg/15 mL 15 mL Solution JT SCH ×2 (05:15→11:44)
[2016-11-17] MEDS: Lactated Ringer's 1,000 ML IV SCH (05:37)
[2016-11-17] MEDS: Pantoprazole 4 mg/mL 10 mL Inj IVPUSH SCH (08:32)
[2016-11-17] MEDS: Loperamide 1 mg/5 mL 120 mL Liquid JT SCH ×2 (08:35→21:04)
[2016-11-17] MEDS: Potassium Chloride 20 mEq/15 mL 15mL Oral Soln PO SCH ×2 (08:35→17:52)
[2016-11-17] MEDS: Famotidine Inj 20 MG in IV Premix 1 EACH IV SCH (08:37)
[2016-11-17] MEDS: Sodium-Potassium Phosphorus Packet TUBE SCH ×4 (08:39→21:03)
[2016-11-17] MEDS: 0.9% Sodium Chloride 250 ML IV SCH (09:05)
--- NOTE | 2016-11-17 11:50 | PCM.PNMED ---
Subjective Date of Service November 17, 2016 Subjective Patient has not had a bowel movement since yesterday diarrhea is much better with Imodium. His mouth and throat are dry almost too much so from the glycopyrrolate. Clinically he is overall doing much better he is tolerating tube feeds at 40 mL's per hour. He still having chest pain, no dyspnea or nausea and vomiting. Perhaps she will tolerate a GI cocktail now will help his chest symptoms. Symptoms of radiation are also better. Exam Vital Signs Vital Sign - Last Date Time Temp Pulse Resp B/P Pulse Ox O2 Delivery O2 Flow Rate FiO2 11/17/16 04:43 36.0 66 20 112/58 96 Room Air Intake and Output 11/16/16 11/16/16 11/17/16 Cumulative From/Thru 15:00 23:00 07:00 11/09/16 17:51 - 11/17/16 06:05 Intake Total 1779 ml 0 ml 60063 ml Output Total 850 ml 950 ml 16219 ml Balance 929 ml -950 ml 7572 ml Intake Oral 0 ml 0 ml 150 ml IV Total 1142 ml 33056 ml Tube Feeding 276 ml 1602 ml Tube Irrigant 361 ml 1880 ml Output Urine Total 750 ml 950 ml 9930 ml Stool Total 100 ml 100 ml Gastric Drainage Total 120 ml Other 20 ml # Voids 9 # Bowel Movements 8 Exam Gen.-cachectic/frail male walking looks much better than when I last seen him NAD Eyes-open, conjunctiva clear, tracking symmetrically ENT- ears normal, nose normal, hearing intact Neck- supple/trach midline CVS-RRR negative murmur/gallop Lungs-CTA no wheezes/rhonchi GI-flat, NABS/NT feeding tube in place Musc- moving 4 no obvious deformity Neuro- cranial nerves II through XII intact to gross examination, nonfocal Skin- warm and dry, no rashes/lesions/wounds noted-radiation burn looks much better Psych-pleasant/appropriate Lab and Diagnostics Result Diagram: 11/16/16 0320 11/16/16 032 Assessment & Plan 81-year-old male admitted 11/09 esophageal malignancy having dysphagia and getting radiation. 11/15 patient continues to be miserable with chest pain and sputum problems we will check CXR. complaints of diarrhea which is probably from the feedings. We will give trial to Reglan and GI cocktail today. 11/16 thank you for palliative care consult will follow for relief from symptoms. Thank you Dr. Lee/infectious disease assistance appreciated. 11/17 patient responded quite well to palliative care recommendations, secretions are well controlled, diarrhea has let up and he is overall feeling better. Stopping as many IV medications if not all as possible is tolerating tube feeds now. Changing medications per PEG. It would appear that we are nearing the end of this hospitalization looking at SNF placement 11/18 per 11/19 due to ongoing complex medical needs and generalized weakness. 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, -Thanks for direction no further chemotherapy/radiation completed is planned 11/17 -continue PPI bid, famotidine, zofran prn for n/v, Reglan 11/15 diarrhea, -controlled with the addition of Imodium 11/16 -hyperosmolar enteral nutrition, - C diff (-) plus other stool viral studies negative 11/10 -Antimotility agents added 11/16 Cough, sputum- last CXR 11/09, (-) 11/15, secretions controlled with the addition of glycopyrrolate 11/17 -O2 supplement target >95%, suction as needed -Scopolamine patch, loratadine 11/15-, glycopyrrolate 11/16- neutropenic fever, POA/resolved -y aspiration PNA, viral/bacterial colitis. Although imaging gil CT, CXR, stool PCR were all not suggestive. UA unremarkable. resp PCR neg -s/p cefepime, Levaquin on admission, switched to zosyn, fluconazole 11/11-11/16 , appreciate ID assist (complete) -switched NS to D5 1/2ns [id number] 100cc/hr as pt is on feeds, HD stable. gr1 burn from radiotx, continue ice bag, hydrophillic oint as needed, will consider steroid if it worses Chronic, stable- hx of bladder cancer, s/p TURBT, stable on gil CT, follow up with dispo:likely until next Tuesday, Tue, appreciate daily PT, home with diet:tube feeding start with jevity1.5 10cc/hr, increase as tolerated per nutrition consult dvt ppx:HSQ Full code, confirmed Resuscitation Status: CPR: Attempt Resuscitation Vignesh Olmstead MD November 17, 2016 11:50 Vignesh Olmstead MD November 17, 2016 11:50
[2016-11-17 12:46] VITALS: BP 115/64; PULSE 80; RESP 17; O2SAT 94
--- NOTE | 2016-11-17 14:57 | PCM.PNPALL ---
Date of Service November 17, 2016 Date of Hospital Admission: November 09, 2016 at 17:19 Date of Palliative Consult: November 16, 2016 Palliative Care Recommendation Summary of palliative recommendations: -Symptom management: The palliative team was asked by Dr. Olmstead of the hospitalist team to assist with pain, anxiety, improved control of his secretions and diarrhea. The goal for the palliative team is to assist with making patient more comfortable with regard to his level of pain and the degree that his chronic condition causes him distress. - Pain: Patient has had considerable distress from his level of burning pain in his chest with scale of 7/10 and not amenable with previous hospital PRN opioid medications. Patient is narcotic naive at baseline. 1. Stopped all his PRN opioids and now Stopped Hydrocodone/APAP 7.5/325 mg/ 15ml at 15 ml Q6H via J-tube. 2. Started Oxycodone 5 mg liquid to be given via J-tube Q6H scheduled. We will continue to monitor patients pain level and titrate his pain medication appropriately. - Excessive Secretions: saliva that he cannot swallow due to his esophageal mass and dysphagia. 1. Patient also states that it is distressing to him that he is not been able to control his own secretions. Patient has been on Scopolamine patch while in house, but reports noticing no reduction in the amounts of secretions he makes. We added Glycopyrrolate IV in addition to his scopolamine patch which has successfully controlled his secretions. He now has had somewhat dry mucus membranes. 2. Will continue with scheduled Glycopyrrolate IV. We will stop scopolamine patch immediately as the Robinul on its own is likely sufficient to control his secretions. -Diarrhea: 1. Patients diarrhea has resolved on Imodium. 2. We will continue with Imodium 2mg via J-tube q 12H with plan to reevaluate in AM and consider stopping at that time. -DPOA/Advanced Directives/POLST: 1. Currently Full code -Family/emotional support: Vesta Hamm -Spiritual support: not discussed Patient Goals: not discussed, this consult was for symptom management only (at this point). Additional Medical Diagnoses with primary management by Hospitalist team include : # Neutropenic fever, POA, - Source likely aspiration PNA, viral/bacterial colitis. Although imaging gil CT , CXR, stool PCR were all not suggestive. UA unremarkable. resp PCR neg - Patient is currently clinically stable, and afebrile with current tx. - Fungal Blood cx negative X 2 - s/p cefepime, Levaquin on admission, switched to zosyn all DC'd as of 11/15, Fluconazole stopped 11/17, appreciate ID management - Switched NS to D5 1/2ns [id number] 100cc/hr as pt is on feeds, HD stable. # Cough, productive clear sputum. POA, - last CXR 11/09 repeating 11/15 showed left lung base pneumonia vs aspiration. - CT abdomen and pelvis with contrast on 11/10/2015: Bilateral lung nodules stable compared to 08/28/16. - Patient has no antibiotic coverage for aspiration at this time. - Stopped Scopolamine. - Continuing with Glycopyrrolate - O2 supplement target >95% - Antimicrobials-->, antifungal agent as above - Suction as needed # Diarrhea, POA, currently resolved - Likely due to hyperosmolar enteral nutrition, exams remained benign for acute abdomen, J-tube in position, no extravasation on Gastrografin study, stool PCR negative. 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 - Patient is on concurrent chemoRtx. - CT abdomen and pelvis with contrast on 11/10/2015: Circumferential wall thickening involving the esophagus compatible with known esophageal carcinoma. No evidence of distal metastatic disease. - Per no further chemo. Patient completed 29th round of radiotx on - Neupogen per , neutrophils normalized, therefore it was stopped today. - Will continue PPI bid, famotidine, zofran prn for n/v, trial of GI cocktail and Reglan 11/15 # Gr1 burn from radiotx, - Continue ice bag, hydrophillic oint as needed, will consider steroid if it worses Chronic, stable- hx of bladder cancer, s/p TURBT, stable on gil CT, follow up with - CT abdomen and pelvis with contrast on 11/10/2015: Soft tissue density mass in the urinary bladder compatible with reported carcinoma Problems: Disposition Will likely discharge in the morning if deemed medically appropriate to SNF on [facility]. Diet: tube feeding with jevity1.5 with goal of 70cc/hr, increase as tolerated per nutrition consult dvt ppx:HSQ Full code, verbally confirmed with patient and at the bedside. Resuscitation Status Resuscitation Status: CPR: Attempt Resuscitation POLST Updates/Changes Previous POLST?: No . Pain: None Symptom management: Anxiety, Agitation, Pain (secretions and diarrhea control) Palliative Subjective Palliative Care Daily Responde: Patient (Palliative care requested for assistance with pain control, assistance with secretions, and diarrhea), Team ( Palliative care requested by Dr. Olmstead of Hospitalist team.) Brief History 81-year-old male with hx of bladder cancer, s/p TURBT, stable on in house gil CT , followed by , recent hx of stage IIIA, T3N1 adenocarcinoma of the distal esophagus with hx of dysphagia, on concurrent chemotherapy/radiation ( reportedly 28 rounds of radiotx) and currently followed by Dr Puga. Patient was sent by Dr. Puga, directly to hospital. His last Chemo was 5 days prior to this admission. The Pt reportedly tolerated his round of chemotherapy well. Patient received PEG that was inserted in August by Dr Steele secondary to his diagnosis of esophageal cancer on EGD and due to dysphagia. The patients denied any hx of aspiration. After the patients most recent chemo round, he reportedly showed improvement in tolerating PO liquid. Three days prior to day of admit patient had been suffering cough with yellowish thick sputum, multiple episodes of watery diarrhea, intermittent nausea, but denied vomiting, and SOB. Patient was seen at [place] for J-tube insertion the day prior to hospital admission. He reportedly tolerated this procedure well. Throughout the night prior to presentation the patient continued to have persistent cough, sputum production, and chills. Patient has chronic burning sensation in the chest, and sore throat. He denied cardiac/pulmonary dz, denied chest pain, Hospital Course: Today is hospital day 9. So far during this hospitalization patient has had neutropenic fever that was present on admission that is thought to be secondary to aspiration type pneumonia. He has responded to Neupogen which has since been discontinued. He has had a complex work up to include CXR , Gil CT scan, stool PCR, C. diff, Respiratory PCR, Fungitel, and UA that have all been negative to date. ID was consulted. The patient had received cefepime , Levaquin initially on admit but then was switched to Zosyn, and now with all antibiotics since stopped. The patient received course of Fluconazole which has also since been discontinued as blood cx X 2 returned negative for fungal infection. Patient currently is stable clinically and afebrile. His J-tube is currently in place. Per , he is to receive no further chemo. He has completed 29 rounds of radiotx, with most recent radiation on 11/16/2016. He has a possible esophagectomy in his future but has not yet scheduled office visit with Dr. Steele his GI specialist to discuss this. Overnight: The patient has continued to receive tube feedings and is tolerating well with goal of 70 cc/hour. His persistent diarrhea and excessive sputum production has resolved with Imodium and Robinul and Scopolamine patch. He also is on Reglan. His burning chest pain that has been consistently 7/10 has been well controlled on liquid hydrocodone/APAP. Patient/Family Concerns Patient spouse is concerned per SW note and visit that the tube feedings will be to difficult for her to manage and prefers transition to SNF over HH. Subjective Overnight: The patient has continued to receive tube feedings and is tolerating well and currently at 45 cc/hour with goal of 70 cc/hour. His persistent diarrhea and excessive sputum production has resolved with Imodium and Robinul and Scopolamine patch. He also is on Reglan. His burning chest pain that has been consistently 7/10 has been well controlled on liquid hydrocodone/APAP. Pateint has been doing well and plan is for tentative discharge in the morning. Per SW note patient discharge planning involves transfer to SNF on [facility] preferred by patient and his spouse Vesta, with services as secondary option. Palliative Performance Scale PPS Patient Status: Current PPS Ambulation: Reduced (uses walker) PPS Activity: Unable to do most activity PPS Self-Care: Occasional assistance necessary PPS Intake: Normal (Patient gets nutrition through J-tube) PPS Conscious Level: Full Performace Scale: 60% ADLs ADL Patient Status: Current ADL Ambulation: Reduced ADL Dressing: Occasional assistance necessary ADL Feeding: Total care ADL Hygene/bathing: Considerable assistance required ADL Transfers: Occasional assistance necessary Responsive Patient Symptoms Pain (current): None Pain (maximium): Moderate (7/10 at worst) Secretions Excessive salivation has resolved and patient much more comfortable on the Robinul and Scopolamine. Objective Findings Exam Vital Sign - Last Date Time Temp Pulse Resp B/P Pulse Ox O2 Delivery O2 Flow Rate FiO2 11/17/16 12:46 37.2 80 17 115/64 94 Room Air Intake and Output 11/16/16 11/16/16 11/17/16 Cumulative From/Thru 15:00 23:00 07:00 11/09/16 17:51 - 11/17/16 06:05 Intake Total 1779 ml 0 ml 23390 ml Output Total 850 ml 950 ml 23121 ml Balance 929 ml -950 ml 7572 ml Intake Oral 0 ml 0 ml 150 ml IV Total 1142 ml 63203 ml Tube Feeding 276 ml 1602 ml Tube Irrigant 361 ml 1880 ml Output Urine Total 750 ml 950 ml 9930 ml Stool Total 100 ml 100 ml Gastric Drainage Total 120 ml Other 20 ml # Voids 9 # Bowel Movements 8 General: Alert/Oriented x3 HEENT: Atraumatic, PERRLA, Mucous Membranes Dry Abdomen: PEG/Feeding tube in place Extremities: No Edema Lab/Diagnostics Lab and Imaging results reviewed in detail in EMR. Time spent Total time 20 minutes; >50% face to face with patient and/or family, providing counselling regarding plans and recommendations, and in care coordination with his/her medical teams. Patient was seen, interviewed and examined with Dr. Rocha. Case management is reviewed, note reviewed and I agree with care plan. Attempt to decrease polypharmacy with stopping transderm scop, imodium to remain scheduled.Code status discussion should be reviewed after his surgical consultation re his esophageal CA and again after his surgery if that is completed. I also spent an additional [ ] minutes counseling for advanced care planning with the patient/the patients family/the surrogate decision maker. Attending Statement Attending statement above. copies to: Bijal Zarate PA-C, Benjamin DO November 17, 2016 14:57 Alice Patino MD November 24, 2016 07:26
[2016-11-17] MEDS: Acetaminophen 32 mg/mL 5 mL Liquid TUBE SCH ×2 (16:23→20:30)
[2016-11-17] MEDS: Mineral Oil-Petr Hydrophillic 50 Gm Ointment TOPICAL PRN (16:56)
[2016-11-17] MEDS: Lansoprazole 30 mg ODTablet G-TUBE SCH (17:52)
[2016-11-17 19:35] VITALS: BP 109/60; PULSE 78; RESP 18; O2SAT 96
[2016-11-17] MEDS: oxyCODONE 1 mg/mL 5 mL Liquid TUBE SCH (20:30)
[2016-11-17] MEDS: Famotidine 8 mg/mL 50 mL Suspension G-TUBE SCH (21:03)
[2016-11-18] MEDS: Glycopyrrolate 0.2 MG/ML 1mL Inj IVPUSH SCH ×7 (00:30→12:30)
[2016-11-18] MEDS: oxyCODONE 1 mg/mL 5 mL Liquid TUBE SCH (02:30)
[2016-11-18] MEDS: HYDROmorphone 1 mg/mL Inj IVPUSH PRN (04:05)
[2016-11-18 04:56] VITALS: BP 107/62; PULSE 66; RESP 18; O2SAT 95
[2016-11-18 05:54] LABS: Magnesium 1.9 mg/dL (1.6-2.6)
[2016-11-18] MEDS ORDERED: LANSOPRAZOLE 3 MG/ML G-TUBE SCH (07:30)
[2016-11-18] MEDS: Lansoprazole 30 mg ODTablet G-TUBE SCH (08:30)
[2016-11-18] MEDS: Acetaminophen 32 mg/mL 5 mL Liquid TUBE SCH (08:30)
[2016-11-18] MEDS ORDERED: oxyCODONE 1 mg/mL 5 mL Liquid TUBE SCH (08:30)
[2016-11-18] MEDS: Mineral Oil-Petr Hydrophillic 50 Gm Ointment TOPICAL PRN (09:13)
[2016-11-18] MEDS: Loperamide 1 mg/5 mL 120 mL Liquid JT SCH (09:24)
[2016-11-18] MEDS: Potassium Chloride 20 mEq/15 mL 15mL Oral Soln PO SCH (09:24)
[2016-11-18] MEDS: Famotidine 8 mg/mL 50 mL Suspension G-TUBE SCH (09:24)
[2016-11-18] MEDS: Sodium-Potassium Phosphorus Packet TUBE SCH ×2 (09:25→13:00)
[2016-11-18] MEDS ORDERED: oxyCODONE 1 mg/mL 5 mL Liquid TUBE PRN ×2 (09:40→11:30)
[2016-11-18] MEDS: Sucralfate 100 mg/mL 10 mL Suspension PO SCH ×2 (10:30→11:33)
[2016-11-18 10:58] VITALS: BP 120/64; PULSE 78; RESP 18; O2SAT 95
--- NOTE | 2016-11-18 11:31 | PCM.DIMED ---
Discharge Instructions Date of Service November 18, 2016 Dates of Hospitalization November 09, 2016 at 17:19 Discharge Diagnosis Discharge Diagnosis Neutropenic fever, esophageal cancer with dysphagia, diarrhea, protein caloric malnutrition Diet Discharge Diet: Other (as tolerated, patient currently cannot tolerate anything by mouth.) Activity Discharge Activity: No restrictions Call your provider Call your provider for: Fever or Chills, Shortness of breath, Chest pain, Vomitting, Excessive diarrhea, Weakness (unilateral) Patient Instructions Patient Instructions Patient is extremely frail, we have advanced tube feeds up to 45 ML's per hour that he has tolerated it was bumped to 60 mL's 11/17 patient developed nausea/ vomiting/diarrhea. Please check residuals every 4 hours and hold tube feeds if residuals are greater than 100 mL's, keep static if they are greater than 50- 100 mL or patient having nausea/diarrhea, advanced if residual less than 50 ML' s and patient not having nausea/diarrhea to a goal of 75 per hour Jevity 1.5 or equivalent to this is available. Follow-up plan Going to [facility] Follow-up Provider: Devin Puga MD Follow-up with PCP in: Other (call) Provider: Bijal Zarate PA-C Follow-up in: Other (call for now being followed by facility provider in [place].) Attending's Statement This patient made it through all of his radiation therapy for esophageal cancer and most of his chemotherapy with weekly Taxol carboplatin. The original plan was for this to be preoperative chemoradiotherapy; whether he is strong enough to undergo esophagectomy will have to be determined Vignesh Olmstead MD November 18, 2016 11:31
[2016-11-18] MEDS ORDERED: NAPH1POW2 TUBE (12:06)
[2016-11-18] MEDS ORDERED: METO5SOL PO (12:06)
[2016-11-18] MEDS ORDERED: MAGN400T23 G-TUBE (12:06)
[2016-11-18] MEDS ORDERED: POTA20LI2 PO (12:06)
[2016-11-18] MEDS ORDERED: ACET160S TUBE (12:06)
[2016-11-18] MEDS ORDERED: MINE105O TOPICAL (12:06)
[2016-11-18] MEDS ORDERED: LANS30TA4 G-TUBE (12:06)
[2016-11-18] MEDS ORDERED: OXYC5SOL11 TUBE (12:06)
[2016-11-18] MEDS ORDERED: LIDO20SO PO (12:06)
[2016-11-18] MEDS ORDERED: GLYC1TAB11 G-TUBE (12:06)
[2016-11-18] MEDS ORDERED: SUCR1ORA G-TUBE (12:06)
[2016-11-18] MEDS ORDERED: Loratadine PO (12:06)
[2016-11-18] MEDS ORDERED: ONDA8TAB10 PO (12:06)
--- NOTE | 2016-11-18 13:44 | PCM.DC.MED ---
Discharge Summary Date of Service November 18, 2016 Dates of Hospitalization Date of Hospital Admission November 09, 2016 at 17:19 Date of Discharge: November 18, 2016 Providers: Admitting Physician: Nestor Eckert MD Primary Care Physician: Bijal Zarate PA-C Attending Physician: Nestor Eckert MD Diagnosis at Time of Discharge Diagnosis at Time of Discharge Neutropenic fever, esophageal cancer with dysphagia, diarrhea, protein caloric malnutrition Consultations Onc/Edd, ID/Lee, palliative/North Procedures XRay, CTs & MRIs CXR 11/15/16 1701 IMPRESSION: Left lung base pneumonia versus aspiration. Follow up plain films of the chest are recommended to ensure resolution, and to exclude underlying or central malignancy. Dictated by: Raulito Mahmood M.D. on 11/15/2016 at 20:15 PROCEDURE: X-RAY SMALL BOWEL GASTROGRAPHIN STUDY ([id number]) IMPRESSION: Patent gastrojejunostomy tube with the tip positioned within the proximal jejunum. Dictated by: Adolfo Richardson RRA Interpreted: Nighat Glover MD on 11/10/2016 at 10: 07 CT CHEST, ABDOMEN AND PELVIS WITH CONTRAST ([id number]) 1. Circumferential wall thickening involving the esophagus compatible with known esophageal carcinoma. 2. Soft tissue density mass in the urinary bladder compatible with reported carcinoma. 3. No evidence of distal metastatic disease. 4. Status post placement of percutaneous gastrojejunostomy tube. 5. No free fluid or free air. 6. No evidence of abscess. 7. Bilateral lung nodules stable compared to 08/28/16. 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 Patient was sent by Dr. Puga, directly to hospital. His last Chemo was 5 days prior to this admission. The Pt reportedly tolerated his round of chemotherapy well. Patient received PEG that was inserted in August by Dr Steele secondary to his diagnosis of esophageal cancer on EGD and due to dysphagia. The patients denied any hx of aspiration. After the patients most recent chemo round, he reportedly showed improvement in tolerating PO liquid. Three days prior to day of admit patient had been suffering cough with yellowish thick sputum, multiple episodes of watery diarrhea, intermittent nausea, but denied vomiting, and SOB. Patient was seen at [place] for J-tube insertion the day prior to hospital admission. He reportedly tolerated this procedure well. Throughout the night prior to presentation the patient continued to have persistent cough, sputum production, and chills. Patient has chronic burning sensation in the chest, and sore throat. Hospital Course 81-year-old male admitted 11/09 esophageal malignancy having dysphagia and getting radiation. 11/15 patient continues to be miserable with chest pain and sputum problems we will check CXR. complaints of diarrhea which is probably from the feedings. We will give trial to Reglan and GI cocktail today. 11/16 thank you for palliative care consult will follow for relief from symptoms. Thank you Dr. Lee/infectious disease assistance appreciated. CXR shows LLL op;acity, pt otherwise asx, no axn. 11/17 patient responded quite well to palliative care recommendations, secretions are well controlled, diarrhea has let up and he is overall feeling better. Stopping as many IV medications if not all as possible is tolerating tube feeds now. Changing medications per PEG. It would appear that we are nearing the end of this hospitalization looking at SNF placement 11/18 per 11/19 due to ongoing complex medical needs and generalized weakness. 11/18 patient is on room air still, his secretions are back but he has not gotten as much glycopyrrolate. Yesterday in the afternoon to feedings were turned up as high as 60 mL patient developed nausea and diarrhea. They were turned off overnight and were resuming them 30 ML's per hour with a goal of 70 mL's. Patient should have CMP qMon w/ Mag/Po4+cbc, BMP w/ Mag/Ws2oehwnd+cbc, CXR f/u opacity 11/15 repeat 11/23 sooner if pt exhbits symptoms such as fevers/ hypoxemia. If this patient does not tolerate tube feeds he may need IV fluids periodically along with electrolyte supplementation. He is very frail the goal is to improve his nutritional status for potential esophageal surgery. Currently functional/nutritional status suboptimal to consider surgery. Dysphagia-patient should be followed by speech therapy -Nutrition consult for tube feeds as noted below Weakness-PT/OT 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, improving -Thanks for direction no further chemotherapy/radiation completed -continue PPI bid, famotidine, zofran prn for n/v, Reglan prn 11/15 diarrhea, -+/-controlled with the addition of Imodium 11/16 -hyperosmolar enteral nutrition, - C diff (-) plus other stool viral studies negative 11/10 -Antimotility agents added 11/16 Cough, sputum- last CXR 11/09, (-) 11/15 LL inf, secretions controlled with the addition of glycopyrrolate 11/17 -O2 supplement target >95%, suction as needed -Scopolamine patch, loratadine 11/15-, glycopyrrolate prn 11/16- -CXR 11/15 LLL inf pt got tx for neutropenic fever no further tx @ this time neutropenic fever, POA/resolved - aspiration PNA, viral/bacterial colitis. Although imaging gil CT, CXR, stool PCR were all not suggestive. UA unremarkable. resp PCR neg -s/p cefepime, Levaquin on admission, switched to zosyn, fluconazole 11/11-11/16 , appreciate ID assist (complete) gr1 burn from radiotx, continue ice bag, hydrophillic oint as needed, improving now that XRT completed Chronic, stable- hx of bladder cancer, s/p TURBT, stable on gil CT, follow up with dispo: Discharging to the [facility] diet:tube feeding start w/ jevity1.5 @ 30ml/hr (11/18), increase 10mls q4 prn residual <50mls, static if residual 51-100mls no sx, stop if residual >50mls w/ symptoms or >100mls, resume at prior tolerated dose or decrease by 10mls if residual/symptms gone. goal 70mls/hr. Full code, confirmed Exam Vital Signs (Last) Date Time Temp Pulse Resp B/P Pulse Ox O2 Delivery O2 Flow Rate FiO2 11/18/16 10:58 36.8 78 18 120/64 95 Room Air Exam Gen.-cachectic/frail male, sitting up in bed needs a little assistance to get his legs back in the bed Eyes-open, conjunctiva clear, tracking symmetrically ENT- ears normal, nose normal, hearing intact Neck- supple/trach midline CVS-normal rate Lungs- normal rate no evidence of respiratory distress GI-flat, gtube in place Musc- moving 4 no obvious deformity Neuro- cranial nerves II through XII intact to gross examination, nonfocal Skin- warm and dry, no rashes/lesions/wounds noted-radiation burn looks much better Psych-pleasant/appropriate Test 11/09/16 20:58 11/11/16 12:32 11/12/16 05:15 11/13/16 05:10 Urine Color [place] (YELLOW) Urine Appearance Clear (CLEAR,HAZY) Urine pH 5.5 (5.0-8.0) Urine Specific [place] 1.025 (1.003-1.035) Urine Protein 30mg/dL (NEG,TRACE) Urine Glucose (UA) Negativemg/dL (NEGATIVE) Urine Ketones 15mg/dL (NEGATIVE) Urine Occult Blood Large (NEGATIVE) Urine Nitrite Negative (NEGATIVE) Urine Bilirubin Negative (NEGATIVE) Urine Ictotest Negative (Negative) Urine Urobilinogen Normalmg/dL (NORMAL) Urine Leukocyte Esterase Negative (NEGATIVE) Urine RBC 11-50/hpf (0-2) Urine WBC 0-5/hpf (0-5) Urine Epithelial Cells Few/hpf (NONE-MOD) Urine Crystals None seen (NONE SEEN) Urine Bacteria Few/hpf (NONE-FEW) Urine Hyaline Casts None/lpf (NONE) Urine Granular Casts None seen (NONE SEEN) Urine Waxy Casts None seen (NONE SEEN) Urine Red Blood Cell Casts None seen (NONE SEEN) Urine White Blood Cell Casts None seen (NONE SEEN) Urine Mucus Present (None Seen) Urine Trichomonas None seen (NONE SEEN) Urine Yeast None (NONE SEEN) Urinalysis Comment None Urine Culture Reflexed Not indicated Fungal Antibodies <31pg/mL (<80) Aspergillus galactomannan Antigen 0.05Index (0.00-0.49) Strongyloides IgG Antibody Negative (Negative) Procalcitonin 0.13ng/mL (0.00-0.08) Corrected White Blood Count 1.6th/mm3 (3.8-10.1) Hematology Comments Test 11/15/16 04:45 11/16/16 03:20 11/18/16 05:00 Neutrophils (%) (Auto) 65% (40-74) Lymphocytes (%) (Auto) 8% (14-46) Monocytes (%) (Auto) 9% (4-12) Eosinophils (%) (Auto) 0% (0-5) Basophils (%) (Auto) 0% (0-3) Band Neutrophils % 13% (1-5) Metamyelocytes % 2% (0-0) Myelocytes % 2% (0-0) Promyelocytes % 1% (0-0) Nucleated Red Blood Cells 1/100 WBC (0-24) Total Bilirubin 0.6mg/dL (0.0-1.2) Aspartate Amino Transf (AST/SGOT) 16U/L (0-50) Alanine Aminotransferase (ALT/SGPT) 13U/L (0-44) Alkaline Phosphatase 48U/L (25-160) Total Protein 4.9g/dL (6.4-8.4) Albumin 2.7g/dL (3.4-5.0) White Blood Count 4.7th/mm3 (3.8-10.1) Red Blood Count 3.30mil/mm3 (4.40-5.80) Hemoglobin 10.6g/dL (13.8-17.2) Hematocrit 32.4% (41.0-50.0) Mean Corpuscular Volume 98.2fL (81-100) Mean Corpuscular Hemoglobin 32.1pg (27.0-35.0) Mean Corpuscular Hemoglobin Concent 32.7% (32.0-37.0) Red Cell Distribution Width 16.1% (12.3-15.4) Platelet Count 120bil/L (150-400) Phosphorus Level 2.9mg/dL (2.5-4.9) Sodium Level 138mEq/L (134-144) Potassium Level 4.3mEq/L (3.5-5.2) Chloride Level 103mEq/L (97-108) Carbon Dioxide Level 26mmol/L (18-29) Blood Urea Nitrogen 3mg/dL (8-27) Creatinine 0.41mg/dL (0.76-1.27) Estimat Glomerular Filtration Rate 214mL/min (>59) Glucose Level 102mg/dL (60-99) Calcium Level 8.5mg/dL (8.5-10.1) Magnesium Level 1.9mg/dL (1.6-2.6) Discharge Medications Discharge Medications ([Loratadine]) 10 MG TABLET 10 MG PO HS Prescribed by: FINESSE DELGADO MD Acetaminophen Liquid (Acetaminophen Liquid) 160 Mg/5 Ml Solution 1,000 MG TUBE TID Prescribed by: FINESSE DELGADO MD Lansoprazole ODT (Prevacid ODT) 30 Mg Tablet 30 MG G-TUBE DAILY Prescribed by: FINESSE DELGADO MD Magnesium Oxide (Mag-Oxide) 400 Mg Tablet 800 MG G-TUBE BID Prescribed by: FINESSE DELGADO MD Naph,Mb-Db/K pH,Mbdb (Phos-Nak Packet) 1 Each Powd.pack 1 EA TUBE PCHS Prescribed by: FINESSE DELGADO MD Potassium Chloride (Potassium Chloride) 20 Meq/15 Ml Liquid 20 MEQ PO BIDWM Prescribed by: FINESSE DELGADO MD Sucralfate (Sucralfate) 1 Gm/10 Ml Oral.susp 1,000 MG G-TUBE BID Prescribed by: FINESSE DELGADO MD As needed Glycopyrrolate (Glycopyrrolate) 1 Mg Tablet 1 MG G-TUBE q2 PRN PRN Secretion Control Prescribed by: FINESSE DELGADO MD Lidocaine HCl (Lidocaine HCl Viscous) 20 Mg/1 Ml Solution 10 ML PO Q4H PRN PRN For Chest Pain Prescribed by: FINESSE DELGADO MD Metoclopramide (Metoclopramide) 10 Mg/10 Ml Solution 5 MG PO Q6H PRN PRN For Nausea Prescribed by: FINESSE DELGADO MD Mineral Oil/Pet Hy-Phl (Aquaphor) 1 Applic/Gm Oint 1 APPLIC TOPICAL PRN PRN PRN burn on back pain Prescribed by: FINESSE DELGADO MD Ondansetron ODT (Ondansetron ODT) 8 Mg Tab.rapdis 8 MG PO q8 PRN PRN For Nausea Prescribed by: FIENSSE DELGADO MD oxyCODONE (oxyCODONE) 5 Mg/5 Ml Solution 5-10 MG TUBE Q6 PRN PRN For Severe Pain Prescribed by: FINESSE DELGADO MD Miscellaneous Medications Scopolamine (Transderm-Scop) 1 Each Patch.td72 1 EACH TD (Reported) [facility] Going to [facility] for improved treatment of nutritional/functional capacity. He can see his PCP + onc/Edd as needed all urology Dr. Del Toro regarding potential need for follow-up. Once he is stronger and can potentially be considered a surgical candidate sent down to [place] for further evaluation with the cardiothoracic surgeon with whom they have already been in touch. Discharge Diet: Other (as tolerated, patient currently cannot tolerate anything by mouth.) Discharge Activity: No restrictions Patient Instructions Patient is extremely frail, we have advanced tube feeds up to 45 ML's per hour that he has tolerated it was bumped to 60 mL's 11/17 patient developed nausea/ vomiting/diarrhea. Please check residuals every 4 hours and hold tube feeds if residuals are greater than 100 mL's, keep static if they are greater than 50- 100 mL or patient having nausea/diarrhea, advanced if residual less than 50 ML' s and patient not having nausea/diarrhea to a goal of 75 per hour Jevity 1.5 or equivalent to this is available. Follow-up Provider: Devin Puga MD Follow-up with PCP in: Other (call) Provider: Bijal Zarate PA-C Follow-up in: Other (call for now being followed by facility provider in [place].) Time spent >30min Attending Statement Patient will need follow-up with thoracic surgeon in [place] as he gets stronger he may become a surgical candidate. Dr. Puga-Call. Dr Alverto GÓMEZ, PCP. Goal for now is symptom management and prove nutritional/functional capacity. copies to: Bijal Zarate PA-C, Andris E MD November 18, 2016 13:44
[2016-11-18] MEDS ORDERED: Loperamide 1 mg/5 mL 120 mL Liquid JT SCH (16:30)
--- NOTE | 2016-11-18 18:38 | PCM.PALLBR ---
Palliative Care Recommendation Summary of palliative recommendations: 11/18/16 Esophageal burning-- will try carafate slurry-starting at 1/2 dose to see if he tolerates it then BID and HS Encourage regular dosing of oxycodone which might address the burning- at least use at HS routinely and prn daytime Diarrhea-persistent and presumed due to TF--will increase imodium to tid scheduled Secretions-I suspect he is tolerating this but will resume his scop patch and continue the glycopyrrolate Continues to be full code. Should be readdressed as decisions re ds management are clarified--ie esophagectomy is his goal with cure. Offered OP Palliative service if needed for sx management -Symptom management: The palliative team was asked by Dr. Olmstead of the hospitalist team to assist with pain, anxiety, improved control of his secretions and diarrhea. The goal for the palliative team is to assist with making patient more comfortable with regard to his level of pain and the degree that his chronic condition causes him distress. - Pain: Patient has had considerable distress from his level of burning pain in his chest with scale of 7/10 and not amenable with previous hospital PRN opioid medications. Patient is narcotic naive at baseline. 1. Stopped all his PRN opioids and now Stopped Hydrocodone/APAP 7.5/325 mg/ 15ml at 15 ml Q6H via J-tube. 2. Started Oxycodone 5 mg liquid to be given via J-tube Q6H scheduled. We will continue to monitor patients pain level and titrate his pain medication appropriately. - Excessive Secretions: saliva that he cannot swallow due to his esophageal mass and dysphagia. 1. Patient also states that it is distressing to him that he is not been able to control his own secretions. Patient has been on Scopolamine patch while in house, but reports noticing no reduction in the amounts of secretions he makes. We added Glycopyrrolate IV in addition to his scopolamine patch which has successfully controlled his secretions. He now has had somewhat dry mucus membranes. 2. Will continue with scheduled Glycopyrrolate IV. We will stop scopolamine patch immediately as the Robinul on its own is likely sufficient to control his secretions. -Diarrhea: 1. Patients diarrhea has resolved on Imodium. 2. We will continue with Imodium 2mg via J-tube q 12H with plan to reevaluate in AM and consider stopping at that time. -DPOA/Advanced Directives/POLST: 1. Currently Full code -Family/emotional support: Vesta Hamm -Spiritual support: not discussed Patient Goals: not discussed, this consult was for symptom management only (at this point). Additional Medical Diagnoses with primary management by Hospitalist team include : # Neutropenic fever, POA, - Source likely aspiration PNA, viral/bacterial colitis. Although imaging gil CT , CXR, stool PCR were all not suggestive. UA unremarkable. resp PCR neg - Patient is currently clinically stable, and afebrile with current tx. - Fungal Blood cx negative X 2 - s/p cefepime, Levaquin on admission, switched to zosyn all DC'd as of 11/15, Fluconazole stopped 11/17, appreciate ID management - Switched NS to D5 1/2ns [id number] 100cc/hr as pt is on feeds, HD stable. # Cough, productive clear sputum. POA, - last CXR 11/09 repeating 11/15 showed left lung base pneumonia vs aspiration. - CT abdomen and pelvis with contrast on 11/10/2015: Bilateral lung nodules stable compared to 08/28/16. - Patient has no antibiotic coverage for aspiration at this time. - Stopped Scopolamine. - Continuing with Glycopyrrolate - O2 supplement target >95% - Antimicrobials-->, antifungal agent as above - Suction as needed # Diarrhea, POA, currently resolved - Likely due to hyperosmolar enteral nutrition, exams remained benign for acute abdomen, J-tube in position, no extravasation on Gastrografin study, stool PCR negative. 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 - Patient is on concurrent chemoRtx. - CT abdomen and pelvis with contrast on 11/10/2015: Circumferential wall thickening involving the esophagus compatible with known esophageal carcinoma. No evidence of distal metastatic disease. - Per no further chemo. Patient completed 29th round of radiotx on - Neupogen per , neutrophils normalized, therefore it was stopped today. - Will continue PPI bid, famotidine, zofran prn for n/v, trial of GI cocktail and Reglan 11/15 # Gr1 burn from radiotx, - Continue ice bag, hydrophillic oint as needed, will consider steroid if it worses Chronic, stable- hx of bladder cancer, s/p TURBT, stable on gil CT, follow up with - CT abdomen and pelvis with contrast on 11/10/2015: Soft tissue density mass in the urinary bladder compatible with reported carcinoma Problems: Disposition Will likely discharge in the morning if deemed medically appropriate to SNF on [facility]. Diet: tube feeding with jevity1.5 with goal of 70cc/hr, increase as tolerated per nutrition consult dvt ppx:HSQ Full code, verbally confirmed with patient and at the bedside. Resuscitation Status Resuscitation Status: CPR: Attempt Resuscitation POLST Updates/Changes Previous POLST?: No . Symptom management: Vomiting, Pain Total time 35 minutes; >50% face to face with patient and/or family, providing counselling regarding plans and recommendations, and in care coordination with his/her medical teams. I also spent an additional [ ] minutes counseling for advanced care planning with the patient/the patients family/the surrogate decision maker. copies to: Bijal Zarate PA-C; Devin Puga MD Palliative Brief Note Date of Service November 18, 2016 . Patient defined having a lousy night with increase nausea, vomiting of yellow acid substance, esophageal burning and no sleep. States has been his pattern to be OK daytime but night getting much worse. He has declined his oxycodone daytime because of no pain. He deals with his saliva-rarely having to spit that. He feels that increase in feedings part of problem-- TF now off. O: alert, cooperative HRR lungs clear abd slightly distended on mildly tender with fding tube in place BS+ Alice Patino MD November 18, 2016 18:38
== END 2016-11-18 14:25 | DRG 808 ==
LOC: OSC 17:19
PROVIDERS: ADMIT Hospitalist; ATTEND Internal Medicine
DX: D70.1 Agranulocytosis secondary to cancer chemotherapy (principal); J69.0 Pneumonitis due to inhalation of food and vomit; C15.5 Malignant neoplasm of lower third of esophagus; E46 Unspecified protein-calorie malnutrition; K52.0 Gastroenteritis and colitis due to radiation; T45.1X5A Adverse effect of antineoplastic and immunosuppressive drugs, initial encounter; Z87.891 Personal history of nicotine dependence; Z93.4 Other artificial openings of gastrointestinal tract status; Z68.28 Body mass index [BMI] 28.0-28.9, adult; R50.81 Fever presenting with conditions classified elsewhere; T21.14XA Burn of first degree of lower back, initial encounter; Y84.2 Radiological procedure and radiotherapy as the cause of abnormal reaction of the patient, or of later complication, without mention of misadventure at the time of the procedure

== ENCOUNTER 2017-02-07 10:58 | Emergency (ER) | payer MEDICARE ==
[~2017-02-07] VITALS: Ht 175.3 cm; Wt 93.2 kg
[~2017-02-07 10:58] MED LIST changes: +ACET160S TUBE; -CIPR-231 PO; -Cefepime Inj 2,000 MG in Dextrose 5% Minibag Plus 100 ML IV SCH; +GLYC1TAB11 G-TUBE; +LANS30TA4 G-TUBE; +LIDO20SO PO; +Loratadine PO; +MAGN400T23 G-TUBE; +METO5SOL PO; +MINE105O TOPICAL; +NAPH1POW2 TUBE; -OMEG-38 PO; +ONDA8TAB10 PO; +OXYC5SOL11 TUBE; +POTA20LI2 PO; +SCOP1PAT TD; +SUCR1ORA G-TUBE; -TAMS0.4C98 PO
[2017-02-07 11:01] VITALS: BP 137/80; PULSE 70; RESP 16; O2SAT 93
--- NOTE | 2017-02-07 11:14 | ED.REPORT ---
HPI-General Illness Date of Service Feb 07, 2017 ED Provider: Dr. Cardoso Pt is a 81 y/o male w/ a hx of esophageal CA s/p recent surgery, recent pneumonia, presenting to the ED with his due to J-tube falling out prior to arrival. The patient had a J tube placed at [facility] in [place] 5 weeks ago after an esophageal surgery. He has been recovering at [facility] and today while he was being taken out of bed to go to the shower his tube fell out. He is also complaining of increased SOB and cough and has been on oxygen which he is weaning off of. During his surgical admission he was also diagnosed with inhalation pneumonitis of food or vomit and is currently on oral Augmentin via the tube. He is starting to be weaned off of tube feeds to oral. Pt denies vomiting, fever, recent choking episodes. He was also on Lovenox prophylactically and recently taken off. Nursing Notes Stated Complaint: J-TUBE FELL OUT Chief Complaint: General Complaint Nursing Notes Reviewed: Yes Allergies: Coded Allergies: No Known Allergies (Unverified , 02/07/17) Scheduled ([Loratadine]) 10 MG TABLET 10 MG PO HS Acetaminophen Liquid (Acetaminophen Liquid) 160 Mg/5 Ml Solution 1,000 MG TUBE TID Lansoprazole ODT (Prevacid ODT) 30 Mg Tablet 30 MG G-TUBE DAILY Magnesium Oxide (Mag-Oxide) 400 Mg Tablet 800 MG G-TUBE BID Naph,Mb-Db/K pH,Mbdb (Phos-Nak Packet) 1 Each Powd.pack 1 EA TUBE PCHS Potassium Chloride (Potassium Chloride) 20 Meq/15 Ml Liquid 20 MEQ PO BIDWM Sucralfate (Sucralfate) 1 Gm/10 Ml Oral.susp 1,000 MG G-TUBE BID Scheduled PRN Glycopyrrolate (Glycopyrrolate) 1 Mg Tablet 1 MG G-TUBE q2 PRN PRN Secretion Control Lidocaine HCl (Lidocaine HCl Viscous) 20 Mg/1 Ml Solution 10 ML PO Q4H PRN PRN For Chest Pain Metoclopramide (Metoclopramide) 10 Mg/10 Ml Solution 5 MG PO Q6H PRN PRN For Nausea Mineral Oil/Pet Hy-Phl (Aquaphor) 1 Applic/Gm Oint 1 APPLIC TOPICAL PRN PRN PRN burn on back pain Ondansetron ODT (Ondansetron ODT) 8 Mg Tab.rapdis 8 MG PO q8 PRN PRN For Nausea oxyCODONE (oxyCODONE) 5 Mg/5 Ml Solution 5-10 MG TUBE Q6 PRN PRN For Severe Pain Miscellaneous Medications Scopolamine (Transderm-Scop) 1 Each Patch.td72 1 EACH TD General Time Seen by MD: 11:14 Chief Complaint Other (J tube out) Hx Obtained From: Patient, Spouse Arrived By: Wheelchair Sudden in Onset?: Yes Onset Occurred: Just prior to arrival Symptom Duration: Since onset Severity: Current: No pain currently Severity: Maximum: No pain Recent Healthcare: Recent doctor visit, Recent hospitalization Similar Sx Previous: No Past Medical History Past Medical History Esophageal CA Hx pneumonia GERD Arthritis Past Surgical History Esophagus surgery to treat cancer Bilateral knee replacement Right hip replacement Spine Smoking History Never Smoker Social History Long history of chewing and swallowing tobacco. He denies smoking Other Social History: Ambulatory Status Independent Review of Systems Full Review of Systems Constitutional: Denies: Fever Respiratory: Reports: Non-productive cough, Shortness of breath GI: Denies: Abdominal pain, Dysphagia (no recent choking episodes), Nausea, Vomiting Complete sys rev & neg: except as marked. Physical Exam Vital Signs Vital Signs Date Time Temp Pulse Resp B/P Pulse Ox O2 Delivery O2 Flow Rate FiO2 02/07/17 15:33 36.7 72 24 146/68 96 Nasal Cannula 2 02/07/17 12:35 64 24 97 Nasal Cannula 2 02/07/17 11:57 61 30 132/51 91 Room Air 02/07/17 11:01 37.0 70 16 137/80 93 Room Air Initial VS: Reviewed, Vital signs abnormal (mild hypoxia) Head / Eyes: Atraumatic, Normocephalic ENT: Mucous membranes moist, Conjunctiva normal, No scleral icterus Neck: Supple, Full range of motion Cardiovascular: Regular rate & rhythm, Heart sounds normal, Intact distal pulses Extremities: Vascular intact, Neuro intact, No swelling Skin: Warm, Dry, No cyanosis Neurologic: Alert, Oriented, Nonfocal Psychiatric: Mood/affect normal, Behavior normal, Normal thought content General/Constitutional: Awake, Alert, No acute distress, Cooperative, Not toxic appearing Respiratory / Chest: No respiratory distress, No wheezing, No stridor Rhonchi about right lung base Coughing Abdomen: Atraumatic, Soft, Non-tender, No guarding, No rebound, No distention Ahuja catheter placed in RUQ at site of prior J-tube Back: Full range of motion, Painless range of motion Prior puncture site about the left posterior thoracic area is clean, dry, and intact Interpretation & Diagnostics Lab Results Interpretation Result Diagram: 02/07/17 1150 02/07/17 1150 Test 02/07/17 11:50 02/07/17 12:17 02/07/17 13:10 White Blood Count 6.2th/mm3 (3.8-10.1) Red Blood Count 3.21mil/mm3 (4.40-5.80) Hemoglobin 10.9g/dL (13.8-17.2) Hematocrit 34.8% (41.0-50.0) Mean Corpuscular Volume 108.4fL (81-100) Mean Corpuscular Hemoglobin 34.0pg (27.0-35.0) Mean Corpuscular Hemoglobin Concent 31.3% (32.0-37.0) Red Cell Distribution Width 15.1% (12.3-15.4) Platelet Count 224bil/L (150-400) Neutrophils (%) (Auto) 66.1% (40-74) Lymphocytes (%) (Auto) 14.9% (14-46) Monocytes (%) (Auto) 15.7% (4-12) Eosinophils (%) (Auto) 2.3% (0-5) Basophils (%) (Auto) 0.5% (0-3) Prothrombin Time 10.1sec (8.1-12.5) Prothromb Time International Ratio 0.95ratio Sodium Level 134mEq/L (134-144) Potassium Level 4.5mEq/L (3.5-5.2) Chloride Level 93mEq/L (97-108) Carbon Dioxide Level 30mmol/L (18-29) Blood Urea Nitrogen 14mg/dL (8-27) Creatinine 0.41mg/dL (0.76-1.27) Estimat Glomerular Filtration Rate 214mL/min (>59) Glucose Level 89mg/dL (60-99) Lactic Acid Level 1.1mmol/L (0.4-2.0) Calcium Level 8.7mg/dL (8.5-10.1) Total Bilirubin 0.4mg/dL (0.0-1.2) Aspartate Amino Transf (AST/SGOT) 38U/L (0-50) Alanine Aminotransferase (ALT/SGPT) 29U/L (0-44) Alkaline Phosphatase 165U/L (25-160) Total Protein 7.6g/dL (6.4-8.4) Albumin 3.3g/dL (3.4-5.0) Procalcitonin 0.05ng/mL (0.00-0.08) Troponin T 0.010ug/L (0.0-0.011) Hold Urine Received (Received) ECG Interpretation ECG Interpretation: Sinus rhythm rate 64 APC Early R wave transition Time: 12:27 Interpreted by: ED physician Normal ECG Interpretation: No acute ischemic changes X-Ray Chest Interpretation Chest Xray Interpretation: IMPRESSION: Slowly improving bilateral pneumonia pattern, with asymmetric elevation of the left hemidiaphragm (chronic). Port-A-Cath from left-sided approach remains in normal position. Dictated by: Alon Celis M.D. on 02/07/2017 at 12:26 Approved by: Alon Celis M.D. on 02/07/2017 at 12:29 View: Portable, 1 view Interpretation / Wet Read by: Interpret - Radiologist Re-Eval/Medical Decision Med Decision/Clinical Course Patient arrives requesting J-tube replacement. Incidentally he is hypoxic without supplemental oxygen. Basic labs and chest x-ray performed for this reason. Patient seems to have a resolving pneumonia. He has been on oxygen at the care facility. G-tube is replaced by radiology. Patient was discharged. Source of Hx: Old records Time of Eval: 12:19 Re-Evaluation/Progress Note: Pt rechecked. Discussed XR wet-read. Time of Eval: 12:40 Re-Evaluation/Progress Note: Discussed need for radiology to replace J-tube. Time of Eval: 15:13 Re-Evaluation/Progress Note: Pt rechecked. Tube replacement successfully. Informed pt of plan for discharge. Pt understands and agrees with plan for discharge. F/U instructions and RTER warnings given. All questions addressed. Consultation : Call Returned at: 12:20 Detective Investigator: Agrees with eval, Agrees with plan Note: Discussed case with [facility]. Recommends place 12-Maori J-tube. Counseled Regarding: Diagnosis, Lab results, Need for follow-up, When/why to return to ED Discharge & Departure Primary Impression: Jejunostomy tube fell out Additional Impression: Bilateral pneumonia Pneumonia type: due to unspecified organism Lung location: lower lobe of lung Qualified Code: J18.9 - Pneumonia, unspecified organism Disposition: Home Discharge Condition All VS Reviewed: Yes Condition: Stable Additional Instructions: Your J-tube was replaced. X-rays were performed because your oxygen level was borderline. X-rays and labs show a resolving pneumonia. Follow-up with your primary care doctor as planned. Return to the ER as needed for new or concerning symptoms. Referrals: Bijal Zarate PA-C (PCP) Scribe Attestation Portions of this note were transcribed by Efren Anthony. I, Dr. Cardoso, personally performed the history, physical exam and medical decision-making; I reviewed and confirmed the accuracy of the information in the transcribed note. copies to: Bijal Zarate PA-C, Timothy S DO Feb 07, 2017 11:14 EFREN ANTHONY Feb 07, 2017 11:22
[2017-02-07 11:57] VITALS: BP 132/51; PULSE 61; RESP 30; O2SAT 91
[2017-02-07 12:03] LABS: BASOPHILS % (AUTO) 0.5 % (0-3); EOSINOPHILS % (AUTO) 2.3 % (0-5); MONOCYTES % (AUTO) 15.7 % (4-12); Mean Corpuscular Volume 108.4 fL (81-100); NEUTROPHILS % (AUTO) 66.1 % (40-74); Platelet Count 224 bil/L (150-400)
[2017-02-07 12:17] LABS: INR 0.95 ratio
--- NOTE | 2017-02-07 12:30 | DRSVH ---
PROCEDURE: X-RAY CHEST ONE VIEW, PORTABLE ([id number]) INDICATIONS: SHORTNESS OF BREATH TECHNIQUE: One view of the chest was acquired. COMPARISON: [facility], CR, CHEST 1 VIEW, 01/26/2017, 13:49. [facility], CT, PE STUDY (CTA CHEST), 01/20/2017, 20:16. [facility], CR, XR CHEST 2VW, 11/15/2016, 18:34. [facility], CR, XR CHEST 1VW (PORTABLE), 11/09/2016, 18:37. FINDINGS: Surgical changes and devices: Port-A-Cath from left-sided approach is in normal position.. Lungs and pleura: No pleural effusions or pneumothorax. Lungs are abnormal with a bilateral pneumon ia pattern with superimposed elevation of the left hemidiaphragm previously present. The appearance is mildly improved from the comparison study 01/26/17. Mediastinum: Mediastinal contours appear normal. Heart size is normal. Bones and chest wall: No suspicious bony lesions. Overlying soft tissues appear unremarkable. IMPRESSION: Slowly improving bilateral pneumonia pattern, with asymmetric elevation of the left hemid iaphragm (chronic). Port-A-Cath from left-sided approach remains in normal position. Dictated by: Alon Celis M.D. on 02/07/2017 at 12:26 Approved by: Alon Celis M.D. on 02/07/2017 at 12:29
[2017-02-07 12:35] VITALS: PULSE 64; RESP 24; O2SAT 97
[2017-02-07 15:33] VITALS: BP 146/68; PULSE 72; RESP 24; O2SAT 96
--- NOTE | 2017-02-07 17:05 | DRSVH ---
PROCEDURE: X-RAY TUBE REPLACE PERC GASTRO-JEJUNUM INDICATIONS: J tube fell, out, esophageal CA COMPARISON: None. FINDINGS: The board certified orthodontist image demonstrate normal bone gas pattern. There is a Ahuja catheter in the open ing of the jejunostomy site. Contrast injection demonstrating the tip of the Ahuja catheter is within the proximal jejunum. A 14 [place] red rubber catheter was placed through the opening after removing the existing Ahuja catheter. Contrast injection performed after catheter placement demonstrates the t ip of the catheter is within the jejunum. The catheter was secured with suture on the skin surface. IMPRESSION: Successful placement of jejunostomy tube. Dictated by: Evelyn Pineda M.D. on 02/07/2017 at 17:03 Transcribed by: SERENE on 02/07/2017 at 17:05 Approved by: Evelyn Pineda M.D. on 02/09/2017 at 9:31
== END 2017-02-07 15:34 | disposition home or self-care (01) ==
LOC: SED 10:58
DX: K94.19 Other complications of enterostomy (principal); J18.9 Pneumonia, unspecified organism; K21.9 Gastro-esophageal reflux disease without esophagitis; Z85.01 Personal history of malignant neoplasm of esophagus
CPT/HCPCS: 36415; 49452; 71010; 80053; 83605; 84145; 84484; 85025; 85610; 93005; 99284; Q9963

== ENCOUNTER 2017-03-16 11:52 | Inpatient (IN) | payer MEDICARE ==
[2017-03-16] VITALS (7 sets, daily range): BP systolic 123–170; BP diastolic 56–76; PULSE 65–81; RESP 15–28; O2SAT 89–100
[~2017-03-16] VITALS: Ht 182.9 cm; Wt 88.8 kg
[2017-03-16 12:26] LABS: BASOPHILS % (AUTO) 0.3 % (0-3); EOSINOPHILS % (AUTO) 2.4 % (0-5); MONOCYTES % (AUTO) 8.1 % (4-12); Mean Corpuscular Hemoglobin 34.1 pg (27.0-35.0); NEUTROPHILS % (AUTO) 78.7 % (40-74); Platelet Count 219 bil/L (150-400)
[2017-03-16 12:49] LABS: Magnesium 2.3 mg/dL (1.6-2.6)
--- NOTE | 2017-03-16 13:15 | ED.REPORT ---
HPI-Abd Pain M 40 and Over Date of Service Mar 16, 2017 ED Provider: Nav Larson MD The pt is a 81 y/o male with a hx of esophageal CA (s/p recent surgery) and recent open cholecystectomy who presents to the ED complaining of persistent nausea since the cholecystectomy surgery 2 weeks ago. The pt had a J-tube after the the esophageal surgery, which was removed once the pt was able to eat. A few days ago, the J-tube was replaced as he had lack of appetite and fluid intake secondary to nausea. The pt also complains of mild vomiting, generalized weakness and 7/10 diffuse lower quadrant abdominal pain. He denies cough, shortness of breath, and dysuria. Code status: Full code Nursing Notes Stated Complaint: ABD PAIN Chief Complaint: Male Abdominal Pain Nursing Notes Reviewed: Yes (Balloon not reconciled) Allergies: Coded Allergies: No Known Allergies (Unverified , 02/07/17) Scheduled ([First-Lansoprazole]) 3mg/ml 10 ML PO DAILY Amoxicillin/Clav K 875-125 mg (Augmentin 875-125 mg) 1 Each Tablet 1 TABLET PO BID Cetirizine Chew (Cetirizine Chew) 10 Mg Tab.chew 10 MG PO DAILY Cholestyramine (Cholestyramine Packet) 4 Gm Packet 4 GM PO QID Enoxaparin Sodium (Enoxaparin Sodium) 40 Mg/0.4 Ml Syringe 40 MG SUBQ DAILY Finasteride (Finasteride) 5 Mg Tablet 5 MG PO DAILY Fluoxetine Oral Soln (Fluoxetine Oral Soln) 20 Mg/5 Ml Solution 5 ML PO DAILY Lorazepam (Ativan) 0.5 Mg Tablet 0.5 MG PO TID Ondansetron (Ondansetron) 4 Mg Tablet 4 MG PO TID Scheduled PRN Acetaminophen (Mapap) 160 Mg/5 Ml Solution 15.5 ML PO Q4H PRN PRN For Pain Docusate Sodium (Diocto) 50 Mg/5 Ml Liquid 10 ML PO BID PRN PRN For Constipation Guaifenesin (Guaifenesin ER) 600 Mg Tab.er.12h 600 MG PO BID PRN PRN For Cough Polyethylene Glycol 3350 (Miralax) 17 Gm Powd.pack 17 GM PO DAILY PRN PRN For Constipation Sennosides (Senna) 8.6 Mg Tablet 17.2 MG PO BID PRN PRN For Constipation oxyCODONE (oxyCODONE) 5 Mg/5 Ml Solution 5 ML PO Q4H PRN PRN For Pain General Time Seen by MD: 13:18 Chief Complaint Nausea Hx Obtained From: Patient, Spouse Arrived By: Ambulance Sudden in Onset?: No Onset Occurred: More than a week ago... (2 weeks) Symptom Duration: Since onset Location: : Diffuse Quality: Painful Radiation: : Does not radiate Severity: Current: Pain level 7 out of 10 Severity: Maximum: Severe Recent Healthcare: Recent doctor visit, Previous surgery Past Medical History Past Medical History Esophageal CA Hx pneumonia GERD Arthritis Past Surgical History Esophagus surgery to treat cancer Bilateral knee replacement Right hip replacement Spine Open cholecystectomy on 03/01/17 Reports: Cholecystectomy Smoking History Never Smoker Social History Long history of chewing and swallowing tobacco. He denies smoking Other Social History: Ambulatory Status Independent Review of Systems Reports: lack of appetite and fluid intake Constitutional: Reports: Weakness - generalized Respiratory: Denies: Non-productive cough, Shortness of breath GI: Reports: Abdominal pain, Nausea, Vomiting Male: Denies Dysuria Complete sys rev & neg: except as marked. Physical Exam Initial Vital Signs Vital Signs (First) Date Time Temp Pulse Resp B/P Pulse Ox O2 Delivery O2 Flow Rate FiO2 03/16/17 11:56 36.4 81 28 123/60 89 Room Air Initial VS: Reviewed, Vital signs normal Head / Eyes: Atraumatic, Normocephalic Extremities: Vascular intact, Neuro intact, No swelling, No tenderness Skin: Warm, Dry, No cyanosis Neurologic: Alert, Oriented, Nonfocal General/Constitutional: Awake, Alert, Cooperative Distress / Hydration: Positive: Dehydration moderate Appearance / Presentation: Positive: Cachectic, Frail, Ill appearing/not toxic Respiratory / Chest: Atraumatic, Breath sounds NL, Breath sounds = bilat, No respiratory distress, No rales, No rhonchi, No wheezing Port-a-cath in the left chest. Abdomen: Atraumatic, Soft, No guarding, No rebound Tenderness/Guarding/Rebound: Positive: Tender diffuse (worse in the lower quadrants) Surgical incision is clean, dry and intact. Back: Atraumatic, Full range of motion, Painless range of motion, Non-tender Neck: Atraumatic, Full range of motion, No swelling, Non-tender Scars across the neck Interpretation & Diagnostics Lab Results Interpretation Result Diagram: 03/16/17 1220 03/16/17 1220 Test 03/16/17 12:20 03/16/17 14:34 03/16/17 15:58 White Blood Count 6.2th/mm3 (3.8-10.1) Red Blood Count 4.05mil/mm3 (4.40-5.80) Hemoglobin 13.8g/dL (13.8-17.2) Hematocrit 41.3% (41.0-50.0) Mean Corpuscular Volume 102.0fL (81-100) Mean Corpuscular Hemoglobin 34.1pg (27.0-35.0) Mean Corpuscular Hemoglobin Concent 33.4% (32.0-37.0) Red Cell Distribution Width 14.2% (12.3-15.4) Platelet Count 219bil/L (150-400) Neutrophils (%) (Auto) 78.7% (40-74) Lymphocytes (%) (Auto) 10.2% (14-46) Monocytes (%) (Auto) 8.1% (4-12) Eosinophils (%) (Auto) 2.4% (0-5) Basophils (%) (Auto) 0.3% (0-3) Sodium Level 138mEq/L (134-144) Potassium Level 4.3mEq/L (3.5-5.2) Chloride Level 98mEq/L (97-108) Carbon Dioxide Level 29mmol/L (18-29) Blood Urea Nitrogen 12mg/dL (8-27) Creatinine 0.51mg/dL (0.76-1.27) Estimat Glomerular Filtration Rate 167mL/min (>59) Glucose Level 121mg/dL (60-99) Calcium Level 9.0mg/dL (8.5-10.1) Magnesium Level 2.3mg/dL (1.6-2.6) Total Bilirubin 0.6mg/dL (0.0-1.2) Aspartate Amino Transf (AST/SGOT) 55U/L (0-50) Alanine Aminotransferase (ALT/SGPT) 40U/L (0-44) Alkaline Phosphatase 442U/L (25-160) Total Protein 8.0g/dL (6.4-8.4) Albumin 3.4g/dL (3.4-5.0) Lipase 10U/L (13-60) Hold Johnson Top Tube Received (Received) Hold Urine Received (Received) Urine Color Yellow (YELLOW) Urine Appearance Clear (CLEAR,HAZY) Urine pH 6.0 (5.0-8.0) Urine Specific [place] 1.026 (1.003-1.035) Urine Protein Tracemg/dL (NEG,TRACE) Urine Glucose (UA) Negativemg/dL (NEGATIVE) Urine Ketones Negativemg/dL (NEGATIVE) Urine Occult Blood Trace (NEGATIVE) Urine Nitrite Negative (NEGATIVE) Urine Bilirubin Negative (NEGATIVE) Urine Urobilinogen Normalmg/dL (NORMAL) Urine Leukocyte Esterase Negative (NEGATIVE) Urine RBC 0-2/hpf (0-2) Urine WBC 0-5/hpf (0-5) Urine Epithelial Cells Occasional/hpf (NONE-MOD) Urine Crystals Oxalic acid crystals (NONE Urine Bacteria None/hpf (NONE-FEW) Urine Hyaline Casts None/lpf (NONE) Urine Granular Casts None seen (NONE SEEN) Urine Waxy Casts None seen (NONE SEEN) Urine Red Blood Cell Casts None seen (NONE SEEN) Urine White Blood Cell Casts None seen (NONE SEEN) Urine Mucus None seen (None Seen) Urine Trichomonas None seen (NONE SEEN) Urine Yeast None (NONE SEEN) Urinalysis Comment None Urine Culture Reflexed Not indicated Lab Results Interpretation: CBC normal CMP positive elevated alkaline phosphatase Stool PCR ordered CT Abd / Pelvis Interpretation IMPRESSION: 1. Large left-sided pleural effusion. 2. Consolidation left lung base which could represent compressive atelectasis, however aspiration pneumonia cannot be excluded by imaging alone. Please correlate with clinical laboratory data. 3. Scattered small amount of free fluid in the abdomen and pelvis uncertain etiology. 4. No free intraperitoneal air. 5. No dilated loops of bowel. 6. Small, approximately 1.2 x 2.5 cm fluid collection in the anterior right abdominal wall likely representing postsurgical seroma. Please correlate with direct physical findings to exclude infectious process. 7. Status post cholecystectomy. 8. Jejunostomy tube appears appropriately positioned. 9. Findings discussed with Dr. ivis Larson on 03/16/17 at 1517 hrs. Dictated by: Becky Quintero MD, PhD on 03/16/2017 at 14:02 Approved by: Becky Quintero MD, PhD on 03/16/2017 at 14:19 Study type: Abdominal CT IV contrast Interpretation / Wet Read by: Interpret - Radiologist Re-Eval/Medical Decision Med Decision/Clinical Course This is a 81-year-old male with prior history of esophageal CA who earlier this month underwent open cholecystectomy at [place], he now presents with developing nausea, and diarrhea over the past week with increasing diarrhea the past 24 hours, and very poor oral intake to the point that it started reusing the jejunostomy tube for nutritional supplement. Just feels really poorly, increasing weakness, so sent in for further evaluation. He denies cough or shortness breath, denies dysuria. He has no previous history of C. difficile- but is still finishing a course of antibiotics and has obviously multiple risk factors. He appears fatigued, dehydrated, but nontoxic. He is complaining of some mild lower abdominal tenderness-but his incision is clean dry and intact from the open cholecystectomy. He has intact bowel sounds. Blood work was basically normal with mild elevated alkaline phosphatase. CT imaging was nonspecific, no definite complication from the surgery was identified, no signs of bowel obstruction, no overt findings of colitis. The radiologist is suspicious for features consistent with gastroenteritis, early CHF certainly remains in the differential. The CT does identify left pleural effusion, etiology is unclear patient patient's oxygen eating, denies dyspnea, has no cough. I am not finding indication for empiric , additional antibiotics (patient is on outpatient regimen at [facility]). The patient required some antiemetics and fluids, given his age, co-morbidities , is being admitted observation status for continued fluids and management while we attempt to obtain stool for PCR testing to further evaluate for C. difficile. The case has been discussed with the hospitalist. Clinically I am not finding evidence of a need for emergent surgical consultation, I did briefly discuss the case with the general surgeon given the patient's in the postop period, they agreed less they are harder findings or concern by the hospitalist that a general surgery consult is needed, they are not finding a mandatory consult simply for being in the postoperative period to be warranted at this time. Being this point still R used to evaluate for C. difficile and other medical pathologies. Source of Hx: Old records Time of Eval: 15:32 Consultation : Referral / Consult Name: Sara Trotter DO Consulted With: Hospitalist Call Returned at: 15:48 Straightedge Machine Operator Helper: Will see patient, Agrees with eval, Agrees with plan, Accepts admit Note: Rechecked pt. Discussed lab results, imaging results,diagnosis and plan to admit. Pt understands and agrees with the plan for admission. All questions addressed. Differential Diagnosis: Negative: Abdominal aortic aneurysm, Appendicitis, Cholangitis, Cholecystitis, Esophageal rupture, Gun shot wound abdomen, Peritonitis, Trauma, abdominal Counseled Regarding: Diagnosis, Lab results, Need for admission Discharge & Departure Departure Notes r/o C diff Primary Impression: Generalized abdominal pain Additional Impressions: Diarrhea Diarrhea type: unspecified type Qualified Code: R19.7 - Diarrhea, unspecified Nausea Dehydration Disposition: ADMITTED TO HOSPITAL Vital Signs - All Vital Signs Date Time Temp Pulse Resp B/P Pulse Ox O2 Delivery O2 Flow Rate FiO2 03/16/17 15:15 66 15 143/56 100 Room Air 03/16/17 14:30 69 20 130/63 97 Room Air 03/16/17 11:56 36.4 81 28 123/60 89 Room Air Referrals: Bijal Zarate PA-C (PCP) Scribe Attestation Portions of this note were transcribed by Flores Najera. I,, personally performed the history,physical exam and medical decision-making;I reviewed and confirmed the accuracy of the information in the transcribed note. Signed by Celestino Rucker. 03/16/17 copies to: Bijal Zarate PA-C, Matthew F MD Mar 16, 2017 13:15 Flores Najera Mar 16, 2017 13:23
[2017-03-16] MEDS ORDERED: 0.9% Sodium Chloride 1,000 ML IV ONE (13:30)
[2017-03-16] MEDS ORDERED: HYDROmorphone 0.5 mg/0.5 mL iSecure Syringe IVPUSH PRN (13:30)
[2017-03-16] MEDS ORDERED: SODIUM CHLORIDE 0.9% IV ONE (13:30)
[2017-03-16] MEDS ORDERED: PROMETHAZINE IV ONE (13:30)
--- NOTE | 2017-03-16 15:20 | DRSVH ---
PROCEDURE: CT ABDOMEN AND PELVIS WITH CONTRAST ([id number]) INDICATIONS: Abd pain TECHNIQUE: After the administration of intravenous contrast, 5 mm thick sections acquired from the diaphragm to the symphysis. 5 mm coronal and sagittal reformats were acquired. For radiation dose reduction, the following was used: automated exposure control, adjustment of mA and/or kV according to patient siz e. COMPARISON: [facility], CT, CT CHEST ABD PELVIS W CON, 11/09/2016, 21:57. FINDINGS: Image quality: Excellent. ABDOMEN: Lung bases: Moderate-sized left pleural effusion noted. Trace right pleural effusion noted. Consolida tion in the left lung base likely represents compressive atelectasis, however underlying infectious p rocess can be differentiated by imaging alone. Heart size is normal. Solid organs: Liver and spleen are normal in size and enhancement. Gallbladder is surgically absent . Biliary system is non dilated. Pancreas enhances normally. The fatty pancreatic replacement stabl e compared to prior examinations. No adrenal nodules. Kidneys demonstrate normal size and enhanceme nt, without hydronephrosis. Peritoneum and bowel: Postsurgical changes compatible with gastric pull through procedure noted. Sandi l loops demonstrate normal wall thickness and caliber. Trace free fluid is noted adjacent to the ante rior and inferior right lobe of the liver. Small amount of low-density free fluid noted in the lower pelvis. Percutaneous gastrostomy tube has been removed in interval since prior CT scan. Percutaneous jejunostomy tube has been placed. Scattered air-fluid levels noted in the colon. No free air. Nodes and vessels: No retroperitoneal or mesenteric adenopathy by size criteria. Aorta and inferior vena cava are normal in size. Scattered atherosclerotic calcifications noted in the abdominal and pe lvic vasculature. Miscellaneous: No ventral hernias. Small fluid collection is noted in the anterolateral right abdomi nal wall that measures approximately 1.2 x 2.5 cm air-fluid collection may represent postsurgical hem atoma/seroma, however infected fluid collection can't be differentiated by imaging alone. PELVIS: Genitourinary: Bladder is obscured by artifact related to right hip arthroplasty and cannot be evalu ated. Miscellaneous: No adenopathy. Bilateral inguinal hernias are noted right greater than left. Right in guinal hernia contains a small amount of fluid as well as unremarkable appearing fat. Bones: No suspicious bony lesions. No vertebral body compression fractures. Spine degenerative disc disease and facet arthropathy. Right hip arthroplasty. IMPRESSION: 1. Large left-sided pleural effusion. 2. Consolidation left lung base which could represent compressive atelectasis, however aspiration pne umonia cannot be excluded by imaging alone. Please correlate with clinical laboratory data. 3. Scattered small amount of free fluid in the abdomen and pelvis uncertain etiology. 4. No free intraperitoneal air. 5. No dilated loops of bowel. 6. Small, approximately 1.2 x 2.5 cm fluid collection in the anterior right abdominal wall likely rep resenting postsurgical seroma. Please correlate with direct physical findings to exclude infectious p rocess. 7. Status post cholecystectomy. 8. Jejunostomy tube appears appropriately positioned. 9. Findings discussed with Dr. ivis Larson on 03/16/17 at 1517 hrs. Dictated by: Becky Quintero MD, PhD on 03/16/2017 at 14:02 Approved by: Becky Quintero MD, PhD on 03/16/2017 at 14:19
[2017-03-16] MEDS ORDERED: LORA-302 PO (15:41)
[2017-03-16] MEDS ORDERED: ONDA-53 PO (15:41)
[2017-03-16] MEDS ORDERED: CETI10TA20 PO (15:48)
[2017-03-16] MEDS ORDERED: FINA5TAB9 PO (15:49)
[2017-03-16] MEDS ORDERED: FLUO20SO PO (15:49)
[2017-03-16] MEDS ORDERED: ENOX40DI8 SUBQ (15:49)
[2017-03-16] MEDS ORDERED: LANSOPRAZOLE PO (15:51)
[2017-03-16] MEDS ORDERED: AMOX-366 PO (15:57)
[2017-03-16] MEDS ORDERED: QUE9 PO (15:57)
[2017-03-16] MEDS ORDERED: [UNRECOGNIZED DRUG - CODE] PO (15:57)
[2017-03-16] MEDS ORDERED: OXYC5SOL11 PO (16:03)
[2017-03-16] MEDS ORDERED: POLY17PO6 PO (16:03)
[2017-03-16] MEDS ORDERED: GUAI600T86 PO (16:03)
[2017-03-16] MEDS ORDERED: DOCU50LI15 PO (16:03)
[2017-03-16] MEDS ORDERED: SENN-133 PO (16:05)
[2017-03-16 16:28] LABS: APPEARANCE,URINE CLEAR (CLEAR,HAZY); COLOR,URINE YELLOW (YELLOW); OCCULT BLOOD,URINE TRACE (NEGATIVE); UROBILINOGEN,URINE NORMAL (NORMAL)
--- NOTE | 2017-03-16 16:54 | NUR ---
Admit A&O pt arrived to room via stretcher at 1645. Pt denies pain. IV SL. VSS, on 1L of O2 via NC. Tele monitoring placed on pt, box 45. Pt oriented to room and facility. Denies having questions. Admit complete in ED. to see pt. Pt from [facility], recovering from gallbladder surgery done on 03/01 16 steri strips across mid-abd. C/D/I. Port in [facility] chest, surgeon at [facility] asked family to not use it yet, was placed in August. A large scar across R mid-back posteriorly from esophagus surgery in December. Jejunum in L mid-upper abd, also placed in August. states pt is on a 12 hr drip. Bed in low position, upper 2 rails up, call light in reach. Will continue to monitor.
[2017-03-16] MEDS ORDERED: Alum-Mag Hydrox-Simeth 30 mL Suspension PO PRN (17:35)
[2017-03-16] MEDS ORDERED: Ondansetron 2 mg/mL 2 mL Inj IVPUSH PRN (17:35)
[2017-03-16] MEDS ORDERED: Polyethylene Glycol (PEG) 17 Gm Powder PO PRN (17:35)
[2017-03-16] MEDS ORDERED: oxyCODONE 1 mg/mL 5 mL Liquid PO PRN (17:45)
--- NOTE | 2017-03-16 17:49 | NUR ---
Social Work-initial assessment: Data:See initial assessment. Pt is a 81 y/o male who was admitted on 03/16/17 for diarrhea per H&P. Pt's insurance is [employer] and [employer] and PCP is MOI Miller. EMR reviewed. SW met with pt at bedside to discuss discharge planning, SW role explained. Pt is alert and oriented x3.Pt has been residing over at [facility] for rehab, post surgery. Pt does not drive and uses a fww at baseline. 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 SW discussed DPOA/ advanced directive, pt confirms he has completed this, SW encouraged a copy to be brought in.At this time pt does not have capacity for self care due to required skilled level of care. SW provided pt with discharge planning checklist and encouraged pt to call with any questions, phone number provided on white board in room. Pt is unsure if he wants to return to [facility] at discharge. No MD orders received at this time. SW will continue to follow. Assessment:Pt who has been at SNF. Plan:pt comes from [facility], pt is unsure if wants to return, SW to follow up again with pt. No MD order received. SW will continue to follow. TEQUILA Heath Addendum: 03/16/17 at 1752 by MARUCS MERCADO Amended: Links added.
[2017-03-16] MEDS: 0.9% Sodium Chloride 1,000 ML IV SCH (18:28)
[2017-03-16] MEDS: Cholestyramine Resin Powder 4 Gm Packet PO SCH (21:12)
[2017-03-16] MEDS: LORazepam 0.5 mg Tablet PO SCH (21:12)
--- NOTE | 2017-03-16 21:15 | PCM.HPMED ---
Subjective Date of Service Mar 16, 2017 Primary Provider: Admitting Physician: Primary Care Physician: Bijal Zarate PA-C Attending Physician: Admit Status: From the Emergency Department, Admit to [facility] Team Chief Complaint: Nausea, vomiting, diarrhea History of Present Illness: This is a 81-year-old male with past medical history of esophageal cancer status post recent surgery, J-tube placement, GERD, open cholecystectomy 2 weeks ago at [facility] from [facility] due to nausea vomiting and diarrhea. He states that he does not remember details very well but states he asked to be sent to the ER. States he vomited twice and he had 2 large bowel movements so far. He states that he had diffuse lower abdominal pain currently though his pain has resolved. He tells me that his J-tube was placed during his cancer treatments left in place but not used for some time then after his open cholecystectomy it was used. Per detention staff patient is currently receiving feedings using the J-tube. Patient denies chest pain, dyspnea, urinary symptoms, constipation, dizziness, lightheadedness, back pain, hematochezia and hematemesis. He does endorse dry mouth, and gait instability. From his detention records, he is placed on Augmentin for suspected pneumonia this a.m. he does not know why or what antibiotics he is on. In the ER CMP was remarkable for elevated alkaline phosphatase, CT abdominopelvic with contrast showed left pleural effusion that is rather large, consolidation at left lung base, atelectasis versus pneumonia, postsurgical seroma. Stool PCR was ordered. Review of Systems: Complete review of systems performed, pertinent positives and negatives per history of present illness, all other systems reviewed and are negative. Allergies Coded Allergies: No Known Allergies (Unverified , 02/07/17) Home Medications Patient's home medications include amoxicillin clavulanate, cetirizine, cholestyramine, enoxaparin, finasteride, fluoxetine, lorazepam, Zofran and oxycodone PMH Esophageal cancer status post recent surgery, J-tube placement, pneumonia, GERD , arthritis Surgical History right hip surgery, open cholecystectomy 2 weeks ago, esophageal surgery to treat cancer, bilateral knee replacements, spine surgery Family History Esophageal cancer and a brother, axillary cancer in a maternal aunt and cancer of unknown primary and a brother and prostate cancer in another brother. Social History Hx Alcohol Use: No Hx Substance Use: No Smoking Status: Never Smoker Living Arrangement: [facility] Spiritual Support He is . He is a never smoker. He used chewing tobacco for approximately 50 years having quit in June 2016. He does not use alcohol. He is retired. Exam Vital Signs Vital Sign - Last Date Time Temp Pulse Resp B/P Pulse Ox O2 Delivery O2 Flow Rate FiO2 03/16/17 14:30 69 20 130/63 97 Room Air 03/16/17 11:56 36.4 Exam General: No acute distress, elderly male, difficulty of hearing, appropriately interactive HEENT: Normocephalic, atraumatic. External ears without defect. Pupils equal, round, and reactive to light and accommodation. Anicteric sclerae, moist conjunctivae, and no lid lag. Oropharynx free of erythema and cobble stoning with moist mucosa. Neck: Supple with full range of motion. No jugular venous distension. No bruits. No lymphadenopathy or thyromegaly. Trachea central Cardiovascular: Regular rate and rhythm with no murmurs, rubs, or gallops appreciated Pulmonary: Clear to auscultation bilaterally with no crackles, wheezes, or rhonchi. Normal respiratory effort with no use of accessory muscles. Abdomen: Bowel tones present. Soft, mildly tender diffusely, nondistended. No hepatosplenomegaly or masses appreciated. Several surgical incisions. J-tube site is clean and dry Extremities: No clubbing, cyanosis, edema, or lymphadenopathy appreciated. Skin: Normal temperature, turgor, and texture; no rash, ulcers, or subcutaneous nodules appreciated. Neurological: No focal deficits Psychiatric: Normal mood and affect. Alert and oriented to person, place, and time. Vascular: Palpable pedal pulses 2 over 2, no edema Lab and Diagnostics Result Diagram: 03/16/17 1220 03/16/17 1220 X-Rays, CTs and MRIs [facility] [place] [address] Patient Name: ROSY FREEMAN MR#: [id number] Location: [facility] Ordering Phys: Nav Larson MD Date of Service: 03/16/17 1329 PROCEDURE: CT ABDOMEN AND PELVIS WITH CONTRAST ([id number]) INDICATIONS: Abd pain IMPRESSION: 1. Large left-sided pleural effusion. 2. Consolidation left lung base which could represent compressive atelectasis, however aspiration pneumonia cannot be excluded by imaging alone. Please correlate with clinical laboratory data. 3. Scattered small amount of free fluid in the abdomen and pelvis uncertain etiology. 4. No free intraperitoneal air. 5. No dilated loops of bowel. 6. Small, approximately 1.2 x 2.5 cm fluid collection in the anterior right abdominal wall likely representing postsurgical seroma. Please correlate with direct physical findings to exclude infectious process. 7. Status post cholecystectomy. 8. Jejunostomy tube appears appropriately positioned. 9. Findings discussed with Dr. ivis Larson on 03/16/17 at 1517 hrs. Dictated by: Becky Quintero MD, PhD on 03/16/2017 at 14:02 Approved by: Becky Quintero MD, PhD on 03/16/2017 at 14:19 Assessment & Plan Acute left lung base consolidation, concern for aspiration pneumonia, present on admission -infectious w/u, CXR, sputum cx, respiratory PCR -will give Zosyn -MRSA nasal swab -NS 100cc/hr -O2 supplement target >95% -- Swallow eval ST Acute diarrhea, POA, exams benign for acute abdomen -- His history is not completely indicating that this is new, patient has complained of similar symptoms back in October - will get stool PCR - IVF as above Chronic distal esophageal cancer, POA, reportedly isolated lesion, no metastasis , -et his oncologist -Patient states he is not currently undergoing treatment -Dietary consult for J-tube feedings Elevated alkaline phosphatase, active present on admission -- DDX includes hepatic origin, increased bone turnover, skeletal metastasis -- GGT is ordered Chronic, stable hx of bladder cancer, s/p TURBT, will get UA, UCX Dr. Del Toro is his urologist dispo: Patient is admitted under Inpatient status with expected length of stay greater than 2 midnights due to severity of presenting symptoms, risk of adverse event, and complexity of treatment plan. diet: Clear liquids, dietary consult for J-tube feedings dvt ppx: Enoxaparin 40 mg daily Full code, as patient is unable to provide a proper response, prior records indicate patient is full code Alternate decision-maker Resuscitation Status: CPR: Attempt Resuscitation Time spent 45 min Sara Trotter DO Mar 16, 2017 15:45
[2017-03-16] MEDS ORDERED: Piper-Tazo 3.375 Gm/50 mL D5W Minibag Plus - Q8H over 4 hrs IV ONE ×2 (21:35)
--- NOTE | 2017-03-16 22:02 | DRSVH ---
PROCEDURE: X-RAY CHEST ONE VIEW ([id number]) INDICATIONS: rule out pneumonia TECHNIQUE: One view of the chest was acquired. COMPARISON: [facility], CR, XR CHEST 1VW (PORTABLE), 02/07/2017, 12:11. FINDINGS: Surgical changes and devices: None. Lungs and pleura: No pneumothorax. Small left pleural effusion. Moderate left greater than right bib asilar airspace opacity. Increased left midlung density. Mediastinum: Mediastinal contours appear normal. Heart size is normal. Bones and chest wall: No suspicious bony lesions. Overlying soft tissues appear unremarkable. IMPRESSION: 1. Increased multifocal pneumonia. Follow up plain films of the chest are recommended to ensure resol ution, and to exclude underlying or central malignancy. Dictated by: Raulito Mahmood M.D. on 03/16/2017 at 22:00 Approved by: Raulito Mahmood M.D. on 03/16/2017 at 22:01
[2017-03-16] MEDS: Nystatin 100,000 Unit/Gm 15 Gm Powder TOPICAL SCH (23:22)
[2017-03-17] MEDS ORDERED: Heparin 5,000 Unit/mL Inj SUBQ SCH (00:30)
--- NOTE | 2017-03-17 01:33 | NUR ---
anxiety patient is anxious. when offered lorazepam scheduled medication patient stated "yes, i want it. i want to sleep." given lorazepam. patient made as comfortable as possible. uses urinal frequently. no stool. reviewed plan of care, care ongoing.
[2017-03-17] MEDS: 0.9% Sodium Chloride 1,000 ML IV SCH (03:56)
[2017-03-17 05:50] VITALS: BP 153/74; PULSE 82; RESP 18
--- NOTE | 2017-03-17 06:07 | NUR ---
nausea patient complains of nausea. states "my stomach is rollig' medicated with zofran 8mg slow iv push will monitor Addendum: 03/17/17 at 0638 by ROBERT BOWMAN RN zofran ineffective. patient is still nauseous. patient complains of abd. discomfort rates 7. unable to take oxycodone at this time. notified night hospitalist of above. reassured patient. Addendum: 03/17/17 at 0646 by ROBERT BOWMAN RN awaiting call back patient resting eyes closed . supine no distress observed.
[2017-03-17] MEDS: Cholestyramine Resin Powder 4 Gm Packet PO SCH ×5 (06:30→21:30)
[2017-03-17] MEDS ORDERED: Promethazine Inj 12.5 MG in Dextrose 5%-Pha MIX 50 ML IV PRN (06:50)
[2017-03-17] MEDS: Piperacillin-Tazo 3.375 Gm Inj 3.375 GM in Dextrose 5% Minibag Plus 50 ML IV SCH ×3 (07:31→23:00)
[2017-03-17] MEDS: Nystatin 100,000 Unit/Gm 15 Gm Powder TOPICAL SCH ×2 (07:35→20:30)
[2017-03-17] MEDS: FLUoxetine 4 mg/mL 118 mL Solution PO SCH (07:36)
[2017-03-17] MEDS: LORazepam 0.5 mg Tablet PO SCH ×3 (07:36→19:57)
--- NOTE | 2017-03-17 11:04 | NUR ---
Evaluation completed. Please go to "Notes" then click on "Assessments and Notes" (bottom left corner of screen). Then select appropriate discipline tab on top of screen.
[2017-03-17 11:30] VITALS: PULSE 86; RESP 18; O2SAT 94
--- NOTE | 2017-03-17 13:06 | NUR ---
Tube feed Tube feed started at this time. Settings verified with ELIU Jones. GLENDY at 30 degrees. Tube placement checked. at bedside. Will continue to monitor. Addendum: 03/17/17 at 1840 by AMY PAGE RN Residual checked at 1720, 0 mLs noted. HOB remains at 30 degrees.
[2017-03-17 13:25] VITALS: BP 152/69; PULSE 68; RESP 18
--- NOTE | 2017-03-17 15:49 | NUR ---
NUTRITION ASSESSMENT: ASSESS: 81 YO male admitted for abd. pain and diarrhea. Per visit with and pt, pt was recently restarted on Peptamen 1.5 tube feed as pt had not been able to tolerate po intake due to diarrhea. Consult received for PEJ tube feed recommendation. ok with changing TF to vital 1.5 and having TF meet approx 75% of est. needs until we see what pt PO intake will be. PMHx: Esophageal cancer s/p radiation and chemo, J-tube, osteoarthritis, bladder cancer. LABS: Reviewed. alk phos 326, Alb 3.2. MEDS: Reviewed. GI: No BM reported at this time. CURRENT WT: 84.1 kg. October 2013: 96.6 kg. (approx 13% wt loss x 4 months) DIET: Soft, thins. No po intake reported on current diet but pt ate 60% of clear liquid lunch prior to diet advancement. HOME NUTRITION SUPPORT: Recently restarted on Peptamen 1.5 at 35 ML/hr x 12 hours. EST. NEEDS: 2591-5680 kcals (25-30 kcals/kg BW), 85-126 g protein (1.0-1.5 g/kg BW) NUTRITION DIAGNOSIS: 1.) Inadequate oral intake related to altered GI function as evidenced by diarrhea, poor po intake, and severe wt loss of 13% x 4 months. NUTRITION INTERVENTION: 1.) Recommend continuing current diet at this time. 2.) Recommend Vital 1.5 starting at 25 ML/hr and advancing by 10 mL every 12 hours as tolerated to goal rate of 45 ML/hr to provide 1553 kcals and 70 g protein per day, meeting approx. 75% of pt est. needs with hopefully the other 25% of pt needs coming from po intake. Recommend H2O flush of 30 mL every 4 hours if pt is on IV fluids and 30 ML every 1 hour once IV fluids have been discontinued. TF goal rate and fluid flushes to be adjusted as needed. MONITOR / EVAL: PO intake, TF tolerance/advancement, labs, nutritional status. Follow per high nutritional risk guidelines.
--- NOTE | 2017-03-17 16:10 | NUR ---
PVR PVR checked after pt voided 40mL. Scan revealed 36mL remaining. Pt appears to be resting comfortably in bed on 2L of O2 via oxymask, sating at 94%.
[2017-03-17] MEDS: Promethazine Inj 12.5 MG in Dextrose 5%-Pha MIX 50 ML IV PRN (17:36)
--- NOTE | 2017-03-17 17:58 | DRSVH ---
PROCEDURE: CT CHEST WITH CONTRAST ([id number]) INDICATIONS: cxr concern for malignancy TECHNIQUE: After the administration of intravenous contrast, 5 mm thick sections acquired from the pulmonary api xin to the posterior costophrenic angles. 7 mm thick coronal and sagittal MIP reformats were acquire d. For radiation dose reduction, the following was used: automated exposure control, adjustment of mA and/or kV according to patient size. COMPARISON: [facility], CR, XR CHEST 1VW, 03/16/2017, 19:28. [facility], CT, PE SLADE DY (CTA CHEST), 01/20/2017, 20:16. FINDINGS: Image quality: Good Lungs and pleura: There are postthoracotomy changes in the right chest. There is increased pleural ef fusion in the left chest. Nodular enhancement of the pleura is not appreciated. There is some subsegm ental atelectasis basilarly.here are bilateral effusions. That on the right has decreased slightly si nce 01/20/17. That on the left has increased. Mediastinum: Heart size is enlarged. . No mediastinal or hilar adenopathy by size criteria. Thoraci c aorta and central pulmonary arteries are normal in size. Esophagectomy with gastric pull-through is noted. No hiatal hernia. There is a Port-A-Cath from the left chest with the tip into the superior vena cava Bones and chest wall: No suspicious bony lesions. No vertebral body compression fractures. No axil shruti or supraclavicular adenopathy by size criteria. Abdomen: Visualized upper abdominal solid organs appear normal. Upper abdominal bowel loops are nor mal in caliber. IMPRESSION: 1. Gastric pull-through in the recent past. 2. Decreasing small pleural effusion in the right chest, postthoracotomy site. 3. Increasing pleural effusion on the left. No abnormal pleural-based enhancement or nodular enhancem ent to suggest malignancy is seen. 3. No adenopathy or bone destructive change to suggest malignancy is seen. Dictated by: Alfredo Maya M.D. on 03/17/2017 at 17:46 Approved by: Alfredo Maya M.D. on 03/17/2017 at 17:56
[2017-03-17] MEDS ORDERED: Furosemide 10 mg/mL 4 mL Inj ONE (19:12)
--- NOTE | 2017-03-17 19:36 | ABG ---
DateTimeAnalyzed 19:24:00 -_ pH ____7.167 - 7.350 7.450 pCO2 ___89.1__ -mmHg 35.0 45.0 pO2 ___82.0__ -mmHg 80.0 100 HCO3- ___31.0__ -mmol/L 22.0 26.0 ABE ___-0.2__ -mmol/L -2.0 2.0 tHb ___13.3__ -g/dL 12.0 18.0 O2Hb ___91.2__ -% COHb ____0.9__ -% 1.5 MetHb ____0.8__ -% 0.4 1.5 sO2 ___92.7__ -% 95.0 FIO2 ___21.0__ -% Drawn By MK - Date/Time Notified____ 19:35:00 -_ Liter_Flow ___15.0__ -L/min Oxygen Device 1 NON RE-CASIMIRO - Notified By MK - Notified Whom _Nadia-RN - B 756 -mmHg tO2 ___17.1__ -Vol% Nestor test _Positive -
--- NOTE | 2017-03-17 19:37 | NUR ---
Aspiration? Pt seen to have desated to 70s % while on 2L O2 via NC, was at 95% prior to that. Pt had completed his dinner 20min prior. called to room. IV Morphine given and pt placed on 15L of non-rebreather, sating at 90% Oral suction used for thick mucus being coughed up-seems to be helping with oxygen and pts color. Tube feed stopped at this time. STAT labs, CXR, ABG, EKG orders placed. Addendum: 03/17/17 at 2016 by AMY PAGE RN Report called to SENIOR SECURITY ARCHITECTELIU Osman and pt transported off unit at 2009 to Rm 2016. All personal belongings and meds left with pt. notified of transfer by this RN.
--- NOTE | 2017-03-17 20:07 | DRSVH ---
PROCEDURE: X-RAY CHEST ONE VIEW, PORTABLE ([id number]) INDICATIONS: POSSIBLE ASPIRATION TECHNIQUE: One view of the chest was acquired. COMPARISON: None. FINDINGS: Surgical changes and devices: A Port-A-Cath from the left shows tip in the midsuperior vena cava. Lungs and pleura: Pleural effusion is present in the left chest. Recent CT scan indicates loculation. The amount of aerated left lung is unchanged to minimally decreased since the film 03/16/17. The righ t lung remains unchanged and grossly clear with multiple lung markings from previous right thoracotom y for esophagectomy and gastric pull-through procedure.. Mediastinum: Mediastinal contours appear normal. Heart size is normal. Bones and chest wall: No suspicious bony lesions. Overlying soft tissues appear unremarkable. IMPRESSION: Question of slight decrease amount of aerated lung in the left chest compared to the film from the preceding day. Dictated by: Alfredo Maya M.D. on 03/17/2017 at 20:04 Approved by: Alfredo Maya M.D. on 03/17/2017 at 20:06
--- NOTE | 2017-03-17 20:12 | PCM.PNMED ---
Subjective Date of Service Mar 17, 2017 Subjective Patient is seen again at 7:30 PM as a got called to bedside by the nursing, patient is desaturating. He was on a 15 L NRB saturating at 85%. Staff attempting to do suctioning, due to concern for aspiration. It appears the patient has disabled on milligram of morphine 1/2 hr prior Exam Vital Signs Vital Sign - Last Date Time Temp Pulse Resp B/P Pulse Ox O2 Delivery O2 Flow Rate FiO2 03/17/17 13:25 37.2 68 18 152/69 Nasal Cannula 1.00 91 03/17/17 11:30 94 Intake and Output 03/16/17 03/16/17 03/17/17 Cumulative From/Thru 15:00 23:00 07:00 03/16/17 11:56 - 03/17/17 06:07 Intake Total 1000 ml 1200 ml 2200 ml Output Total 200 ml 800 ml 1000 ml Balance 800 ml 400 ml 1200 ml Intake Oral 0 ml 200 ml 200 ml IV Total 1000 ml 1000 ml 2000 ml Output Urine Total 200 ml 800 ml 1000 ml # Bowel Movements 0 0 Exam Gen.: Patient is anxious and tachypneic Vital signs: RR 30 Oxygen Sat 85% on NRB 15L HR low 100's HEENT: Facial flushing is present Heart: Tachycardic Lungs: Increased crackles especially on the left side, increased work of breathing Neck: Bilateral JVD is present Abdomen nondistended Extremities: No edema Neurological: Alert and oriented Psychiatric extremely anxious IVs and Medications IV Fluids None Medications Reviewed: Medications were reviewed in detail Lab and Diagnostics Result Diagram: 03/16/17 1220 03/17/17 0530 X-Rays, CTs and MRIs [facility] Diagnostic Imaging Department [place], [place] [id number] Patient Name: ROSY FREEMAN MR#: [id number] Location: [facility] [place] Ordering Phys: Nav Larson MD Date of Service: 03/16/17 1329 PROCEDURE: CT ABDOMEN AND PELVIS WITH CONTRAST ([id number]) INDICATIONS: Abd pain IMPRESSION: 1. Large left-sided pleural effusion. 2. Consolidation left lung base which could represent compressive atelectasis, however aspiration pneumonia cannot be excluded by imaging alone. Please correlate with clinical laboratory data. 3. Scattered small amount of free fluid in the abdomen and pelvis uncertain etiology. 4. No free intraperitoneal air. 5. No dilated loops of bowel. 6. Small, approximately 1.2 x 2.5 cm fluid collection in the anterior right abdominal wall likely representing postsurgical seroma. Please correlate with direct physical findings to exclude infectious process. 7. Status post cholecystectomy. 8. Jejunostomy tube appears appropriately positioned. 9. Findings discussed with Dr. ivis Larson on 03/16/17 at 1517 hrs. Dictated by: Becky Quintero MD, PhD on 03/16/2017 at 14:02 Approved by: Becky Quintero MD, PhD on 03/16/2017 at 14:19 Assessment & Plan Chest x-ray was ordered, reviewed by me independently and also with from [facility]: "Question of slight decrease amount of aerated lung in the left chest compared to the film from the preceding day.". Discussed this finding with radiology, since that this level of change may not have caused acute respiratory failure. He feels that there is decreased aeration of lower left lobe. He has also reviewed the CT scan from earlier in the day, they feel that these effusions are loculated, a chest tube will provide better relief than ultrasound-guided thoracentesis. Lasix 30 mg IV is administered. Repeat ABG and reviewed, showed pCO2=89 ph=7.167, patient was transferred to CCU. I have asked them to place patient on BiPAP, discontinue tube feeds, under telemonitoring and updated night hospitalist. Of note at the time of transfer patient's daturations have improved to 95% on NRB 9L, staff suctioned of J tube feeds from his throat, he found partial relief. Also ordered labs stat troponin, BNP, both of which are within normal. EKGs is ordered but not yet available for review at the time of sign out to night hospitalist. VTE Mechanical Devices: Intermittant Pneumatic CD Resuscitation Status: CPR: Attempt Resuscitation Time spent Critical Care Start: 7:00PM End: 7:45 PM Sara Trotter DO Mar 17, 2017 20:12
[2017-03-17 20:40] LABS: TROPONIN T < 0.010 ug/L (0.0-0.011)
[2017-03-17 21:00] VITALS: BP 107/48; PULSE 85; RESP 29; O2SAT 96
[2017-03-17 21:01] VITALS: PULSE 83
[2017-03-17 21:30] VITALS: BP 133/55; RESP 30; O2SAT 94
--- NOTE | 2017-03-17 22:04 | ABG ---
DateTimeAnalyzed 21:54:35 -_ pH ____7.219 - 7.350 7.450 pCO2 ___80.9__ -mmHg 35.0 45.0 pO2 ___72.8__ -mmHg 80.0 100 HCO3- ___33.0__ -mmol/L 22.0 26.0 ABE ____4.1__ -mmol/L -2.0 2.0 tHb ___13.4__ -g/dL 12.0 18.0 O2Hb ___91.0__ -% COHb ____1.9__ -% 1.5 MetHb ____0.0__ -% 0.4 1.5 sO2 ___92.5__ -% 95.0 FIO2 ___80.0__ -% CPAP ___14.0__ -cmH2O PEEP ____6.0__ -cmH2O Set_RR 14 -b/min Drawn By MK - Spontaneous_RR 35 -b/min Oxygen Device 1 ____BIPAP - Notified Whom Dr Yanchuk - K+ ____4.2__ -mmol/L 3.5 5.0 tO2 ___17.1__ -Vol% Nestor test _Positive -
--- NOTE | 2017-03-17 22:21 | PCM.PNMED ---
Subjective Date of Service Mar 17, 2017 Subjective Patient is seen and examined, he is on 2 L oxygen. States that he had one formed stool this a.m. nausea is still bothering him. His brought a copy of his biopsy report from cholecystectomy. Patient apparently had a pain episode this a.m. Exam Vital Signs Vital Sign - Last Date Time Temp Pulse Resp B/P Pulse Ox O2 Delivery O2 Flow Rate FiO2 03/17/17 05:50 36.5 82 18 153/74 Nasal Cannula 1.00 94 03/16/17 16:21 98 Intake and Output 03/16/17 03/16/17 03/17/17 Cumulative From/Thru 15:00 23:00 07:00 03/16/17 11:56 - 03/17/17 06:07 Intake Total 1000 ml 1200 ml 2200 ml Output Total 200 ml 800 ml 1000 ml Balance 800 ml 400 ml 1200 ml Intake Oral 0 ml 200 ml 200 ml IV Total 1000 ml 1000 ml 2000 ml Output Urine Total 200 ml 800 ml 1000 ml # Bowel Movements 0 0 Exam Gen.: No acute distress, elderly male very hard of hearing neck slight right sided distension Abdomen: mild RLQ pain, bs are present, right upper quadrant incisions appear clean and dry Extremities : no edema Chest: Mild Crackles in the lower lobes Psychiatric: Mildly anxious Neurological: No focal deficits IVs and Medications Medications Reviewed: Medications were reviewed in detail Lab and Diagnostics Result Diagram: 03/16/17 1220 03/17/17 0530 X-Rays, CTs and MRIs [facility] Diagnostic Imaging Department [place], [place] [id number] Patient Name: ROSY FREEMAN MR#: [id number] [place] [facility] [place]ing Phys: Nav Larson MD Date of Service: 03/16/17 1329 PROCEDURE: CT ABDOMEN AND PELVIS WITH CONTRAST ([id number]) INDICATIONS: Abd pain IMPRESSION: 1. Large left-sided pleural effusion. 2. Consolidation left lung base which could represent compressive atelectasis, however aspiration pneumonia cannot be excluded by imaging alone. Please correlate with clinical laboratory data. 3. Scattered small amount of free fluid in the abdomen and pelvis uncertain etiology. 4. No free intraperitoneal air. 5. No dilated loops of bowel. 6. Small, approximately 1.2 x 2.5 cm fluid collection in the anterior right abdominal wall likely representing postsurgical seroma. Please correlate with direct physical findings to exclude infectious process. 7. Status post cholecystectomy. 8. Jejunostomy tube appears appropriately positioned. 9. Findings discussed with Dr. ivis Larson on 03/16/17 at 1517 hrs. Dictated by: Becky Quintero MD, PhD on 03/16/2017 at 14:02 Approved by: Becky Quintero MD, PhD on 03/16/2017 at 14:19 Assessment & Plan Acute left lung base consolidation, concern for aspiration pneumonia, present on admission -03/16 infectious w/u,sputum cx, respiratory PCR: All neg -- 03/17 chest x-ray showed:" Increased multifocal pneumonia. Follow up plain films of the chest are recommended to ensure resolution, and to exclude underlying or central malignancy." Also reviewed this personally and independently. -will give Zosyn -MRSA nasal swab neg for MRSA -Discontinued IV fluids, as patient is receiving J-tube feedings --BNP is ordered to r/o fluid overload/CHF, negative this am -O2 supplement target >95% -Swallow eval ST:Recs: Initiate mechanical soft solids, thin liquids, medications whole in puree, with snacks and supplements, 1:1 supervision, upright/alert for all meals, small bites/sips, d/c PO with s/s aspiration. ST to followup 1x for diet tolerance. 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 Steele , surgeon at [facility] who performed the cholecystectomy -- Discussed case with the over the phone. She states that they have seen DR. Puga in the past, he has seen chemoradiation. She is feeling sure that Dr. Puga is unaware of the new findings from the cholecystectomy. She stated that they have been in the process of switching to Dr. Mendez. She also confirmed the patient's CODE STATUS , which is no intubation or life support CPR only. -- I called Dr. Mendez, patient's new oncologist and discussed the case with him. He states that he cannot currently see the patient, recommends that Dr. Puga be notified as long as patient is willing to acutely f/u with Dr. Puga. He Also recommended a chest CT with contrast, and a small bowel follow-through, both of which were ordered -- CA 125 and CA19-9 markers were ordered -- I have discussed this with the patient, who is agreeable to seeing , have tried several times this afternoon to get in touch with w/o success. Will try again in the am Elevated alkaline phosphatase, active present on admission -- DDX includes hepatic origin, increased bone turnover, skeletal metastasis -- GGT is ordered, still pending Chronic, stable hx of bladder cancer, s/p TURBT, will get UA, UCX Dr. Del Toro is his urologist dispo: Patient is admitted under Inpatient status with expected length of stay greater than 2 midnights due to severity of presenting symptoms, risk of adverse event, and complexity of treatment plan. dvt ppx: Enoxaparin 40 mg daily High risk medication: IV Morphine, PO Lorazepam Full code, as patient is unable to provide a proper response, prior records indicate patient is full code Alternate decision-maker Pain Evaluation: Adequate Pain Control VTE Mechanical Devices: Intermittant Pneumatic CD Resuscitation Status: CPR: Attempt Resuscitation Time spent 60 min Sara Trotter DO Mar 17, 2017 07:40
[2017-03-17] MEDS ORDERED: 0.9% Sodium Chloride 500 ML IV ONE (23:25)
[2017-03-18] VITALS (9 sets, daily range): BP systolic 85–133; BP diastolic 41–77; PULSE 66–97; RESP 18–22; O2SAT 87–97
--- NOTE | 2017-03-18 01:30 | ABG ---
DateTimeAnalyzed 01:20:29 -_ pH ____7.270 - 7.350 7.450 pCO2 ___70.6__ -mmHg 35.0 45.0 pO2 ___82.1__ -mmHg 80.0 100 HCO3- ___32.4__ -mmol/L 22.0 26.0 ABE ____4.5__ -mmol/L -2.0 2.0 tHb ___13.2__ -g/dL 12.0 18.0 O2Hb ___94.4__ -% COHb ____1.8__ -% 1.5 MetHb ____0.0__ -% 0.4 1.5 sO2 ___95.9__ -% 95.0 FIO2 ___90.0__ -% CPAP ___16.0__ -cmH2O PEEP ____8.0__ -cmH2O Drawn By MK - Date/Time Notified____ 01:29:00 -_ Oxygen Device 1 ____BIPAP - Notified By MK - Notified Whom Dr Yanchuk - K+ ____3.9__ -mmol/L 3.5 5.0 tO2 ___17.5__ -Vol% Nestor test _Positive -
--- NOTE | 2017-03-18 05:09 | NUR ---
Respiratory distress. Transfer CCU Received to CCU 2016 from [facility] [place] on NRBM with sats mid 90s. Started on Bipap 80% fio2 with sats 90s. Suctioning intermittently large amounts very thick creamy secretions from pharynx. IV saline locked. Ahuja cath placed with pale clear uop after lasix on [facility]. Pt drowsy but awakes easily. 2330 Morphine 2mg given for acute agitation/ shortness of breath with blood pressures up to 170s and increased secretions. Shortness of breath resolved and blood pressure dropped to 80s. Dr Cortez at bedside. NS bolus [id number] given. Blood pressure dependent on wakefulness. 0230: Acutely agitated. Alert and oriented. Requesting removal of bipap. Agreed to use bipap if he could sleep. Morphine 1mg given with adequate effect lasting approx. 2 hours. 0430 Ativan 0.5mg and Morphine 1mg given for agitation with resulting hypotension. Ns 500 ml bolus given. Continues on Bipap now 90% with sats mid 90s. Tele sinus rhythm 80s.
--- NOTE | 2017-03-18 05:29 | NUR ---
Throughout the night patient was very anxious with his bipap on, patient voiced that he didnt want to wear it any longer. Informed the patient that without the bipap to help he may pass away. Patient voiced that he understood this. Patient was orientated to location, year, moth and president, nurse at bedside to verify. Asked patient that if he was given something to help him relax would he be willing to wear it till morning and we could recheck his blood. Patient agreed was given morphine and is resting comfortable. Will recheck ABG before shift change
--- NOTE | 2017-03-18 06:22 | ABG ---
DateTimeAnalyzed 06:12:46 -_ pH ____7.321 - 7.350 7.450 pCO2 ___62.1__ -mmHg 35.0 45.0 pO2 ___99.5__ -mmHg 80.0 100 HCO3- ___32.1__ -mmol/L 22.0 26.0 ABE ____5.2__ -mmol/L -2.0 2.0 tHb ___11.8__ -g/dL 12.0 18.0 O2Hb ___97.2__ -% COHb ____1.8__ -% 1.5 MetHb ____0.0__ -% 0.4 1.5 sO2 ___98.8__ -% 95.0 FIO2 ___80.0__ -% CPAP ___14.0__ -cmH2O PEEP ____9.0__ -cmH2O Set_RR 14 -b/min Drawn By MK - Date/Time Notified____ 06:21:00 -_ Spontaneous_RR 14 -b/min Oxygen Device 1 ____BIPAP - Notified By MK - Notified Whom Adolfo H RN - K+ ____4.1__ -mmol/L 3.5 5.0 tO2 ___16.2__ -Vol% Nestor test _Positive -
--- NOTE | 2017-03-18 07:20 | PCM.PNMED ---
Subjective Date of Service Mar 18, 2017 Subjective ICU TRANSFER NOTE, OVERNIGHT EVENTS ONLY Alfredo Hamm is a 81 year old man with past medical history significant for esophageal cancer, s/p J tube placement, who recently underwent open cholecystectomy at [place] earlier this month, who initially presented for nausea and diarrhea two days ago. Earlier this evening the patient was noted to become hypoxic shortly after his dinner. The patient was given 40 mL of IV Lasix. With an ABG noted to have a pH of 7.1 with a pCO2 of 89. The patient is DNI but was agreeable with BPAP. He was initiated on BPAP and transferred to the CCU by Dr. Trotter. The patient was still able to speak however was confused and had difficulty tolerating the BPAP mask subsequently requiring low dose sedation for agitation. The patient's admission CT notes a loculated left pleural effusion and interstital disease. Review of the patient's chat indicates that he has had a pleural effusion for several months now and it does not appear that he has had a prior thoracentesis. Review of his imaging shows fairly sudden decline in lung appearance a few months ago. Exam Vital Signs Vital Sign - Last Date Time Temp Pulse Resp B/P Pulse Ox O2 Delivery O2 Flow Rate FiO2 03/18/17 05:21 18 85/45 94 80 03/18/17 04:00 CPAP/BIPAP 03/18/17 04:00 36.8 81 03/17/17 13:25 1.00 Intake and Output 03/17/17 03/17/17 03/18/17 Cumulative From/Thru 15:00 23:00 07:00 03/16/17 11:56 - 03/18/17 06:03 Intake Total 1827 ml 990 ml 5017 ml Output Total 380 ml 1375 ml 2755 ml Balance 1447 ml -385 ml 2262 ml Intake Oral 310 ml 0 ml 510 ml IV Total 1318 ml 990 ml 4308 ml Tube Feeding 153 ml 153 ml Tube Irrigant 46 ml 46 ml Output Urine Total 380 ml 1375 ml 2755 ml Gastric Drainage Total 0 ml 0 ml # Voids 2 2 # Bowel Movements 1 1 Exam General: Awake, alert, not in acute distress Respiratory: Reduced breath sounds on the left, coarse breath sounds at left apex, no wheezes, no use of accessory muscles Cardiac: Irregular rhythm, regular rate, no murmurs appreciated Neuro: able to move all 4 extremities independently Lab and Diagnostics Result Diagram: 03/16/17 1220 03/17/17 0530 Additional Diagnostics DateTimeAnalyzed 06:12:46 -_ pH ____7.321 - 7.350 7.450 pCO2 ___62.1__ -mmHg 35.0 45.0 pO2 ___99.5__ -mmHg 80.0 100 HCO3- ___32.1__ -mmol/L 22.0 26.0 ABE ____5.2__ -mmol/L -2.0 2.0 tHb ___11.8__ -g/dL 12.0 18.0 O2Hb ___97.2__ -% COHb ____1.8__ -% 1.5 MetHb ____0.0__ -% 0.4 1.5 sO2 ___98.8__ -% 95.0 FIO2 ___80.0__ -% CPAP ___14.0__ -cmH2O PEEP ____9.0__ -cmH2O Assessment & Plan Acute hypercapnic hypoxemic respiratory failure -Likely secondary to aspiration event however patient refuses intubation -Was initiated on BPAP with slow improvement of his ABG, most recent showing pH of 7.3, pCO2 62 and pO2 99 with IPAP set at 14 cmH2O, EPAP 9, FiO2 90% Aspiration pneumonitis -Patient was already under treatment with Zosyn for presumed HCAP, however review of the patient's imaging indicates infiltrates for several months now Loculated left pleural effusion, small right pleural effusion -Consider paracentesis or chest tube placement depending on patient's desires -No prior paracentesis on file and patient was too confused to clarify further VTE Mechanical Devices: Intermittant Pneumatic CD Resuscitation Status: CPR: Attempt Resuscitation Attending Statement The patient was seen and examined together with Dr. Paiz on 03/18 and I agree with the history, exam and plan as outlined in the note above. Jessica Paiz DO Mar 18, 2017 06:48 Abhishek Still MD Mar 18, 2017 19:01
[2017-03-18 07:33] LABS: BASOPHILS % (AUTO) 0.1 % (0-3); EOSINOPHILS % (AUTO) 0 % (0-5); Mean Corpuscular Hemoglobin 33.3 pg (27.0-35.0); Mean Corpuscular Volume 105.2 fL (81-100); NEUTROPHILS % (AUTO) 87.1 % (40-74); Platelet Count 172 bil/L (150-400)
[2017-03-18] MEDS: Cholestyramine Resin Powder 4 Gm Packet PO SCH ×4 (07:36→21:30)
--- NOTE | 2017-03-18 07:38 | PCM.ADCARE ---
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 roger Trotter Decisional Capacity: poor Subjective: I reviewed his esophageal cancer, newly diagnosed metastatic and poor functional status and his desire for ongoing aggressive care including intubation and potential mechanical ventilation should he be unable to breath on his own; also discussed who would speak on his behalf should he be unable to do so and discussed what conversation he had had with his family so they understand her desires if such situation occurred now or in the future. Patient was unable to answer for himself but he recommended that I discussed it with his . Whom I contacted by phone and had an extended discussion. 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 It appears that his cancer has spread to other areas of his colon and seroma/adhesions. He has completed chemoradiation further disease . It is unclear at this time what his prognosis looks like. He appears to be very anxious to discuss the topic Plan: We will contact patient's oncologist, Dr. Mendez, prior oncologist to see if one of them would be willing to participate in patient's advanced care discussions to set some goals CODE STATUS: CPR okay no intubation and life support Time Spent Adv.Care Planning: Total time spent [id number] and education directly related to advanced planning 30 min Adv. Care Plan Documenation: As above also documented in the H&P Sara Trotter DO Mar 18, 2017 07:38
[2017-03-18] MEDS: FLUoxetine 4 mg/mL 118 mL Solution PO SCH (07:40)
[2017-03-18] MEDS: Piperacillin-Tazo 3.375 Gm Inj 3.375 GM in Dextrose 5% Minibag Plus 50 ML IV SCH ×3 (07:41→23:06)
[2017-03-18] MEDS: Nystatin 100,000 Unit/Gm 15 Gm Powder TOPICAL SCH ×2 (07:42→22:44)
[2017-03-18] MEDS ORDERED: 0.9% Sodium Chloride 500 ML IV ONE (08:55)
[2017-03-18] MEDS ORDERED: 0.9% Sodium Chloride 250 ML IV ONE (09:25)
--- NOTE | 2017-03-18 10:36 | NUR ---
LUCRETIA: Attempted LUCRETIA there is an ongoing goals of care discussion happening in room for 40+ minuets and LUCRETIA is not priority at this time. Follow up on 03/19/17 Updated MANAGER AGENCY and MANAGER AGENCY [facility] Acupuncturist.
--- NOTE | 2017-03-18 11:06 | PCM.CONPAL ---
Date of Service Mar 18, 2017 Date of Hospital Admission: Mar 16, 2017 at 16:07 Date of Palliative Consult: Mar 18, 2017 Requesting Provider: Josefa Candelario DO Reason Palliative Care Consult: Goals of Care Discussion, Hospice Referral & Discussion Hospital Unit @time of consult: Critical Care (room 2016) Additional Information is Vesta Hamm Palliative Care Recommendation Summary of palliative recommendations: Oncology Perspective/Opinion: In October, Dr. Puga told pt and that the patient was not strong enough to undergo further chemotherapy or be a candidate for esophagectomy when he was hospitalized at [facility]. His note states: "The original plan was for this to be preoperative chemoradiotherapy; whether he is strong enough to undergo esophagectomy will have to be determined. Right now, he is too weak and ill to consider that. It would be appropriate for him to be discharged home with home care or to a senior care where his tube feedings can be advanced slowly...Regarding esophageal cancer, I reassured the patient that he is up for no further chemotherapy and that he is now under surveillance until he gets enough strength to be re-evaluated for possible surgery. At this point in time, he is not well enough to consider that." Apparently the patient and his found this news very difficult to accept and initiated plans to transfer oncology care to Dr. Mendez. However, their first appointment with Dr. Mendez was scheduled for March 31. Symptom management (Pain/other): Currently per [facility] Hospitalist Team and CCU ict security specialist Dr. Harden. If pt transitions to comfort care, Palliative Care Provider can write/advise comfort set orders. DPOA/Advanced Directives/POLST: 1. DPOA: pt is currently decisional. is substituted decisionmaker, Vesta Hamm . No paperwork to formalize an HCPOA. 2. POLST: Was Full code at prior admissions and no POLST completed then. Will attempt to complete POLST document prior to discharge that reflects changes in pt's preferences this admission. 3. After lengthy discussion with family, Dr Candelario and Dr. Espinosa, pt decided to update code status to DNR/DNI with limited interventions to include BiPap as tolerated and IV antibiotics. Family/emotional support: strong support from , daughter Estella, Estella's and children. 03/18 Family Conference Team Meeting (FCTM): 1. At the onset Estella is adamant that her father should have CPR, because that is what he said he wanted a few months ago. She is understandably tearful. Vesta feels CPR would not be helpful given his frailness, probability of bone fractures during the procedure and the probable need to proceed with intubation to support his breathing. Alfredo nods his head that he does NOT want intubation. He wavers on whether to choose CPR, looking over at his daughter a lot and squeezing her hand. Ultimately, he elects DNR/DNI. Estella remains somewhat distressed but calmer. 2. The whole family wants to continue trying, to see if he can get better, get stronger and as part of this plan they want to use antibiotics to fight his pneumonia and see if he can get better. 3. PC team counseled that we would use IV antibiotics in hospital, but likely on discharge/transfer he would be changed over to oral antibiotics given via the jejunostomy tube. Family is accepting of that. 4. Estella's had a family member who was in hospice and is comfortable with its principles. Vesta and daughter Estella agree to a hospice info visit , but family is not ready for him to go home "right away." They want to see if he can improve with hospital care first. 5. Dr. Candelario was very direct and honest in her explanation that Alfredo is getting sicker and closer to dying--that he is not going to be able to get more chemotherapy or surgery for his cancer because he is too weak to undergo these therapies. She gave this information in a very simple, kind way. Palliative Care Team feels this family will need some time to process the information and counseling from Dr. Candelario and Dr. Espinosa today. Vesta is more accepting that her may need to be in hospice. Estella is not there yet. 6. Dr. Espinosa contacted and Anatoliy and she agreed to coordinate a hospice information visit for the family. Spiritual support: The family is Zoroastrian. Dr. Espinosa asked hospital clinic receptionist to notify a glass washer that family would welcome an inpatient visit. Loom Fixer Supervisor spoke to family and they had already contacted their glass washer, who is involved in their spiritual care. Patient Goals: 1. DNR/DNI 2. Yes to BiPap and face mask, if he cannot tolerate BiPap 3. Yes to IV antibiotics in hospital. Prognosis: Based on my interview, exam and MAR review, in my clinical opinion the patient is EGOG Stage 4, Karnofsky Performance 30%, and I think he could live 4-8 weeks unless he decides to stop using the BiPap, acquires sepsis and/ or has an acute cardiac or thromboembolic event that might cause his sooner. I have not yet told the family this as they are struggling with the information Dr. Candelario and I gave them in the conference meeting above. Problems: Resuscitation Status Resuscitation Status: DNR/DNI:Do Not Resuscitate/Intubate Limited Interventions: BiPAP, Medications and IV Fluid POLST Updates/Changes Previous POLST?: No POLST Last Review Date: November 17, 2016 . Advanced Care Planning Address: Code status change Symptom management: Dyspnea Pt History History of Present Illness This is a 81-year-old male with past medical history of esophageal cancer status post recent surgery, J-tube placement, GERD, open cholecystectomy 2 weeks ago at [facility] from [facility] due to nausea vomiting and diarrhea. He tells me that his J-tube was placed during his cancer treatments left in place but not used for some time then after his open cholecystectomy it was used. Per senior care staff patient is currently receiving feedings using the J-tube. He states that he does not remember details very well but states he asked to be sent to the ER. States he vomited twice and he had 2 large bowel movements so far. He states that he had diffuse lower abdominal pain currently though his pain has resolved. . Patient denies chest pain, dyspnea, urinary symptoms, constipation, dizziness, lightheadedness, back pain, hematochezia and hematemesis. He does endorse dry mouth, and gait instability. From his senior care records, he is placed on Augmentin for suspected pneumonia this a.m. he does not know why or what antibiotics he is on. Hospital Course: In the ER CMP was remarkable for elevated alkaline phosphatase , CT abdominopelvic with contrast showed left pleural effusion that is rather large, consolidation at left lung base, atelectasis versus pneumonia, postsurgical seroma. Stool PCR was ordered. Admitted 03/17 for likely aspiration pneumonia. Swallow study 03/17 completed and pt started on mechanical soft solids, thin liquids, medications whole in puree, with snacks and supplements, with 1:1 supervision, and upright/alert for all meals. On 03/17 shortly after his evening meal, the patient became hypoxic, with an pH of 7.1 and a pCO2 of 89 on ABG. He received 40 mL of IV Lasix. The patient is DNI but was willing to have BiPAP and was started on it with transfer to CCU by Dr. Trotter. The patient was still able to speak but was confused and had difficulty tolerating the BiPAP mask, subsequently requiring low dose sedation for agitation. The patient's admission CT notes a loculated left pleural effusion and interstitial disease. Review of the patient's chart indicates that he has had a pleural effusion for several months, and it does not appear that he has had a prior thoracentesis. Review of his imaging shows fairly sudden decline in lung appearance a few months ago. The thought was to consider paracentesis or chest tube placement depending on patient's wish. Pt introduced on CCU rounds today and discussed with plan to continue treating aspiration PNA with IV antibiotics and monitor respiratory status. Past Medical History Significant PMH Noted: Esophageal cancer status post recent surgery, J-tube placement. He was able to tolerate most of his chemotherapy with weekly Taxol carboplatin and completed all of his planned irradiation directed to the distal esophageal tumor plus margin plus inclusion of the regional lymph nodes. His total distal esophageal boost was 5040 cGy in 28 treatments over 41 days, completed in late October 2016. In October, he was still not able to swallow food due to his cancer, despite these treatments. Pneumonia, GERD, arthritis Hx of bladder cancer, s/p TURBT Surgical History right hip surgery, open cholecystectomy 2 weeks ago, esophageal surgery to treat cancer, bilateral knee replacements, spine surgery s/p TURBT s/p J-tube placement Family History Esophageal cancer and a brother, axillary cancer in a maternal aunt and cancer of unknown primary and a brother and prostate cancer in another brother. Social History Occupation: retired, 43 years to his . He is a never smoker. He used chewing tobacco for approximately 50 years having quit in June 2016. He does not use alcohol. Living Situation: lives in [place] with his , Vesta. Medications Current Medications: Current Medications Hydromorphone HCl 0.5 mg Q15MIN PRN IVPUSH Last administered on 03/16/17 14:20 ; Admin Dose 0.5 MG; Start 03/16/17 at 13:30; Stop 03/17/17 at 06:51; Status DC Heparin Sodium (Porcine) 5,000 unit Q8 SUBQ; Start 03/17/17 at 00:30; Stop 03/17 at 00:30; Status DC Al Hydrox/Mg Hydrox/Simethicone 30 ml Q6H PRN PO; Start 03/16/17 at 17:35 Ondansetron HCl 4 to 8 mg Q4H PRN IVPUSH Last administered on 03/17/17 05:56; Admin Dose 8 MG; Start 03/16/17 at 17:35 Senna 17.2 mg BID PRN PO; Start 03/16/17 at 17:35 Polyethylene Glycol 17 gm DAILY PRN PO; Start 03/16/17 at 17:35 Acetaminophen 650 mg Q4H PRN PO; Start 03/16/17 at 17:35 Cholestyramine Resin 4 gm QID PO Last administered on 03/17/17 12:24; Admin Dose 4 GM; Start 03/16/17 at 21:30 Finasteride 5 mg DAILY PO Last administered on 03/17/17 07:36; Admin Dose 5 MG ; Start 03/17/17 at 08:30 Fluoxetine HCl 20 mg DAILY PO Last administered on 03/17/17 07:36; Admin Dose 20 MG; Start 03/17/17 at 08:30 Lorazepam 0.5 mg TID PO Last administered on 03/17/17 14:39; Admin Dose 0.5 MG ; Start 03/16/17 at 20:30; Stop 03/17/17 at 20:11; Status DC Oxycodone HCl 5 mg Q4H PRN PO Last administered on 03/17/17 14:39; Admin Dose 5 MG; Start 03/16/17 at 17:45; Stop 03/17/17 at 20:11; Status DC Enoxaparin Sodium 40 mg 40 mg DAILY SUBQ Last administered on 03/18/17 07:41; Admin Dose 40 MG; Start 03/17/17 at 08:30 Sodium Chloride 1,000 ml @ 100 mls/hr Q10H IV Last administered on 03/17/17 03 :56; Admin Dose 100 MLS/HR; Start 03/16/17 at 18:00; Stop 03/17/17 at 16:42; Status DC Nystatin 1 applic 1 applic BID TOPICAL Last administered on 03/18/17 07:42; Admin Dose 1 APPLIC; Start 03/16/17 at 20:50 Piperacillin Sod/ Tazobactam Sod 3.375 gm/Dextrose/ Water 50 ml @ 12.5 mls/hr Q8H IV Last administered on 03/18/17 07:41; Admin Dose 12.5 MLS/HR; Start 03/17 at 07:00 Promethazine HCl 12.5 mg/Dextrose/ Water 50.5 ml @ 151.5 mls/ hr Q4 PRN IV Last administered on 03/17/17 08:55; Admin Dose 151.5 MLS/HR; Start 03/17/17 at 06:50; Stop 03/17/17 at 20:54; Status DC Promethazine HCl/ Dextrose/Water 50.5 ml @ 151.5 mls/ hr Q4H PRN IV Last administered on 03/17/17 17:36; Admin Dose 151.5 MLS/HR; Start 03/17/17 at 08: 15 Morphine Sulfate 1 mg Q4H PRN IVPUSH Last administered on 03/17/17 19:07; Admin Dose 1 MG; Start 03/17/17 at 16:40; Stop 03/17/17 at 20:53; Status DC Morphine Sulfate 1-2 mg Q4H PRN IVPUSH Last administered on 03/17/17 22:15; Admin Dose 2 MG; Start 03/17/17 at 22:15; Stop 03/18/17 at 04:35; Status DC Morphine Sulfate 1-2 mg Q2H PRN IVPUSH Last administered on 03/18/17 09:05; Admin Dose 2 MG; Start 03/18/17 at 06:30; Stop 03/18/17 at 09:30; Status DC Lorazepam 0.5 mg Q4H PRN IVPUSH Last administered on 03/18/17 04:43; Admin Dose 0.5 MG; Start 03/18/17 at 04:35 Morphine Sulfate 0.5-1 mg Q2H PRN IVPUSH; Start 03/18/17 at 10:30 Scheduled ([First-Lansoprazole]) 3mg/ml 10 ML PO DAILY Amoxicillin/Clav K 875-125 mg (Augmentin 875-125 mg) 1 Each Tablet 1 TABLET PO BID Cetirizine Chew (Cetirizine Chew) 10 Mg Tab.chew 10 MG PO DAILY Cholestyramine (Cholestyramine Packet) 4 Gm Packet 4 GM PO QID Enoxaparin Sodium (Enoxaparin Sodium) 40 Mg/0.4 Ml Syringe 40 MG SUBQ DAILY Finasteride (Finasteride) 5 Mg Tablet 5 MG PO DAILY Fluoxetine Oral Soln (Fluoxetine Oral Soln) 20 Mg/5 Ml Solution 5 ML PO DAILY Lorazepam (Ativan) 0.5 Mg Tablet 0.5 MG PO TID Ondansetron (Ondansetron) 4 Mg Tablet 4 MG PO TID Scheduled PRN Acetaminophen (Mapap) 160 Mg/5 Ml Solution 15.5 ML PO Q4H PRN PRN For Pain Docusate Sodium (Diocto) 50 Mg/5 Ml Liquid 10 ML PO BID PRN PRN For Constipation Guaifenesin (Guaifenesin ER) 600 Mg Tab.er.12h 600 MG PO BID PRN PRN For Cough Polyethylene Glycol 3350 (Miralax) 17 Gm Powd.pack 17 GM PO DAILY PRN PRN For Constipation Sennosides (Senna) 8.6 Mg Tablet 17.2 MG PO BID PRN PRN For Constipation oxyCODONE (oxyCODONE) 5 Mg/5 Ml Solution 5 ML PO Q4H PRN PRN For Pain Objective Findings Exam Vital Sign - Last Date Time Temp Pulse Resp B/P Pulse Ox O2 Delivery O2 Flow Rate FiO2 03/18/17 08:30 37.3 78 21 90/50 97 BiPAP 70 03/17/17 13:25 1.00 Intake and Output 03/17/17 03/17/17 03/18/17 Cumulative From/Thru 15:00 23:00 07:00 03/16/17 11:56 - 03/18/17 06:03 Intake Total 1827 ml 990 ml 5017 ml Output Total 380 ml 1375 ml 2755 ml Balance 1447 ml -385 ml 2262 ml Intake Oral 310 ml 0 ml 510 ml IV Total 1318 ml 990 ml 4308 ml Tube Feeding 153 ml 153 ml Tube Irrigant 46 ml 46 ml Output Urine Total 380 ml 1375 ml 2755 ml Gastric Drainage Total 0 ml 0 ml # Voids 2 2 # Bowel Movements 1 1 General: Alert, Oriented, Person, Place, Situation, Mild distress HEENT: Atraumatic, PERRLA, EOMI, Scleral Anicteric, Mucous Membranes Dry, Other (very ILIAMNA) Lungs: Diminished (crackles), Other (no accessory muscle usage) Abdomen: Other (jejunostomy in place, mild RLQ pain, bs are present, right upper quadrant incisions appear clean and dry) Neuro: Follows Commands, Spontaneous Eye Opening, Weakness (generalized), Other (face mask on, but able to participate in family conference with head nodding yes/no.) Extremities: Warm, No Edema Lab/Diagnostics Lab and Imaging results reviewed in detail in EMR. Time spent Total time 70 minutes; >50% face to face with patient and/or family, providing counselling regarding plans and recommendations, and in care coordination with his/her medical teams. I also spent an additional 30 minutes counseling for advanced care planning with the patient/the patients family/the surrogate decision maker. copies to: Bijal Zarate PA-C; Gale Martini MD; Devin Puga MD; Adrian Mendez DO; Mora Contreras MD, Cynthia MD Mar 18, 2017 11:06
--- NOTE | 2017-03-18 11:11 | NUR ---
Palliative Care Received verbal order from Dr Candelario 03/18/17 to assist with goals of care. Patient admitted 03/16/17. Vesta () [phone], Palliative Care to follow. Irlanda Damon
--- NOTE | 2017-03-18 11:18 | NUR ---
HOSPICE INFORMATIONAL VISIT : Called [facility] with new referral for this patient, let them know family and patient are wanting hospice information visit. Johanny will most likely be able to come tomorrow Monday 03/19 or Tuesday 03/20 at the latest. Gave hospice intake all patient information for new referral. This is being done per MD orders. Updated QUALIFICATIONS EXAMINER
--- NOTE | 2017-03-18 12:39 | PCM.ADCARE ---
Advance Care Planning Note Time Spent Adv.Care Planning: Date: 03/18/17 Diagnosis: Esophageal CA with metastasis Pneumonia Acute respiratory failure with hypoxemia Open cholecystectomy 2 weeks ago Purpose of encounter: Goals of care Parties in attendance: Dr. Candelario, Dr. Espinosa, the patient's and daughter, and the patient Decisional capacity: Good Plan: A discussion was held with the family in regards to the prognosis of the patient. The patient's prognosis is very poor at this time and goals of care need to be discussed. The was very understanding of what the patient's wishes were the patient is still competent and able to make his own decisions. The patient will most likely not survive CPR even if his heart were to stop in the states that she does not want him to suffer nor does she want him to be brought back and possibly have decreased quality of life. These are the patient's wishes as well and the daughter while reluctant to agree to this she did agree to abide by her father's wishes and her mother's questions. At this time the patient and family are exploring possible hospice options. Hospice has been consulted. The patient is aware of the current diagnosis and would like to be DO NOT RESUSCITATE/DO NOT INTUBATE. The patient understands that no chest compressions will be done and the patient will not be intubated. The patient and family understands that no form of CPR will be attempted and are in agreement with this. The patient does still want other measures performed such as IV fluids, antibiotics, and possible blood transfusions but does not want any form of CPR. CODE STATUS: DO NOT RESUSCITATE/DO NOT INTUBATE Time spent with advanced care planning: Greater than 16 minutes Josefa Candelario DO Mar 18, 2017 12:39
--- NOTE | 2017-03-18 13:42 | PCM.PNMED ---
Subjective Date of Service Mar 18, 2017 Subjective Patient was seen and examined today. He was sleeping, on BiPAP. Nursing notes overnight describe agitation while using the BiPAP, morphine was given with good results. Exam Vital Signs Vital Sign - Last Date Time Temp Pulse Resp B/P Pulse Ox O2 Delivery O2 Flow Rate FiO2 03/18/17 12:30 36.6 82 21 119/52 93 OxyMask 3.00 03/18/17 08:30 70 Intake and Output 03/17/17 03/17/17 03/18/17 Cumulative From/Thru 15:00 23:00 07:00 03/16/17 11:56 - 03/18/17 06:03 Intake Total 1827 ml 990 ml 5017 ml Output Total 380 ml 1375 ml 2755 ml Balance 1447 ml -385 ml 2262 ml Intake Oral 310 ml 0 ml 510 ml IV Total 1318 ml 990 ml 4308 ml Tube Feeding 153 ml 153 ml Tube Irrigant 46 ml 46 ml Output Urine Total 380 ml 1375 ml 2755 ml Gastric Drainage Total 0 ml 0 ml # Voids 2 2 # Bowel Movements 1 1 Exam General: Arousable to verbal stimuli, expressing agitation and requesting to take off BiPAP HEENT: Normocephalic, atraumatic. External ears without defect. Pupils equal, round. Neck: No jugular venous distention. Cardiovascular: Regular rate and rhythm with no murmurs, rubs, or gallops appreciated Pulmonary: Diffuse rhonchi over right lung remy, decreased breath sounds on left Abdomen: Abdomen soft, nondistended, J-tube present Extremities: No clubbing, cyanosis, edema, or lymphadenopathy appreciated. Skin: Normal temperature, turgor, and texture; no rash, ulcers, or subcutaneous nodules appreciated. Neurological: Responsive to verbal stimuli Psychiatric: Anxious, difficult to assess due to BiPAP IVs and Medications Medications Reviewed: Medications were reviewed in detail Lab and Diagnostics Result Diagram: 03/18/1772903/18/17729 X-Rays, CTs and MRIs Chest x-ray from 03/17/17 IMPRESSION: Question of slight decrease amount of aerated lung in the left chest compared to the film from the preceding day. Dictated by: Alfredo Maya M.D. on 03/17/2017 at 20:[address] from 03/17/17 IMPRESSION: 1. Gastric pull-through in the recent past. 2. Decreasing small pleural effusion in the right chest, postthoracotomy site. 3. Increasing pleural effusion on the left. No abnormal pleural-based enhancement or nodular enhancement to suggest malignancy is seen. 3. No adenopathy or bone destructive change to suggest malignancy is seen. Dictated by: Alfredo Maya M.D. on 03/17/2017 at 17:[address] performed 03/16/17 IMPRESSION: 1. Large left-sided pleural effusion. 2. Consolidation left lung base which could represent compressive atelectasis, however aspiration pneumonia cannot be excluded by imaging alone. Please correlate with clinical laboratory data. 3. Scattered small amount of free fluid in the abdomen and pelvis uncertain etiology. 4. No free intraperitoneal air. 5. No dilated loops of bowel. 6. Small, approximately 1.2 x 2.5 cm fluid collection in the anterior right abdominal wall likely representing postsurgical seroma. Please correlate with direct physical findings to exclude infectious process. 7. Status post cholecystectomy. 8. Jejunostomy tube appears appropriately positioned. 9. Findings discussed with Dr. ivis Larson on 03/16/17 at 1517 hrs. Dictated by: Becyk Quintero MD, PhD on 03/16/2017 at 14:02 Additional Diagnostics DateTimeAnalyzed 06:12:46 -_ pH ____7.321 - 7.350 7.450 pCO2 ___62.1__ -mmHg 35.0 45.0 pO2 ___99.5__ -mmHg 80.0 100 HCO3- ___32.1__ -mmol/L 22.0 26.0 ABE ____5.2__ -mmol/L -2.0 2.0 tHb ___11.8__ -g/dL 12.0 18.0 O2Hb ___97.2__ -% COHb ____1.8__ -% 1.5 MetHb ____0.0__ -% 0.4 1.5 sO2 ___98.8__ -% 95.0 FIO2 ___80.0__ -% CPAP ___14.0__ -cmH2O PEEP ____9.0__ -cmH2O Assessment & Plan Mr. Hamm is a 81-year-old male with a history of esophageal cancer status post J-tube placement who presented from [facility] 03/16/17 for nausea vomiting and diarrhea. He d has left lung basilar consolidation noted on CT scan and was placed on Zosyn for suspected aspiration pneumonia. Hospital day 2 Acute hypercapnic hypoxemic respiratory failure, present on admission, undergoing -Likely secondary to aspiration event however patient refuses intubation. I spoke with patient's , Vesta this morning over the phone, and she states that she does not desire the patient to have CPR if he codes. -Treating with Zosyn -Was initiated on BPAP with slow improvement of his ABG, most recent showing pH of 7.3, pCO2 62 and pO2 99 with IPAP set at 14 cmH2O, EPAP 9, FiO2 90% -Patient has been anxious wearing the BiPAP, and 1-2 mg morphine pushes and 0.5 Ativan pushes have helped with this -Palliative care spoke with family and is setting them up for hospice info visit. Dr. Jahaira Espinosa updated pulsed form to reflect DNR/DNI with limited interventions to include antibiotics and BiPAP Left lung base consolidation, concerning for aspiration pneumonia, present on admission, ongoing -Imaging indicates infiltrates for several months now. Cannot rule out lung metastatic process -Nasopharyngeal PCR negative on 03/16/17 -Urine strep antigen screen negative on 03/16/17 -Urinary Legionella antigen negative -Normal saline 100 mL per hour -Gastroenteritis, acute, present on admission, stable -Stool PCR negative on 03/16/17 -Antiemetics when necessary History of distal esophageal cancer, present on admission, ongoing -Dr. Puga is his oncologist. Per his last note he stated that patient is not strong enough to undergo chemotherapy or surgery but that this may be an option at a later date if he is healthier. -CA 19-9 antigen 96 on 03/17/17 Elevated alkaline phosphatase, present on admission, ongoing -Trending down -Consider skeletal metastasis -GGT 247 on 03/16/17 Loculated left pleural effusion, small right pleural effusion -No prior paracentesis on file and patient was too confused to clarify further -Consider thoracentesis/chest tube if patient/family goals change Disposition: Pending hospice evaluation, the family hopes that the patient will improve while he is here. He will likely be here at least another day or 2. Patient is currently DNR/DNI as per the patient's wishes. See ACP note for further details. VTE Mechanical Devices: Intermittant Pneumatic CD Resuscitation Status: DNR/DNI:Do Not Resuscitate/Intubate Limited Interventions: BiPAP, Medications and IV Fluid Attending Statement The patient was seen and examined together with Dr. Luna on 03/18/17 and I have added additional information to the note above. Deniz Luna DO Mar 18, 2017 13:42 Josefa Candelario DO Mar 18, 2017 16:47
--- NOTE | 2017-03-18 14:47 | NUR ---
Social Work-continued d/c planning/ multidisciplinary rounds: Data:EMR Reviewed. Pt is on day 2 of hospitalization for abd pain per H&P. Pt is not medically stable anticipate several more days. MD and Palliative MD meet with pt and family. MD order received for Hospice information visit. UR specialist called Hospice to schedule, no return call. SW placed a call to Hospice to determine when they could complete information visit, no return call. SW will update family once information regarding Hospice information visit is known. SW will continue to follow. Assessment:Pt who would benefit from hospice. Plan:SW awaiting a return call from hospice to set up information visit.SW will update family once information regarding Hospice information visit is known. SW will continue to follow. TEQUILA Heath Addendum: 03/18/17 at 1733 by MARCUS MERCADO SS SW received a call back from hospice who confirms they could come information visit tomorrow between [phone]. SW attempted to update family no one present. SW to update family in the morning with time. TEQUILA Heath
--- NOTE | 2017-03-18 15:45 | NUR ---
P: Respiratory Distress I: Pt refuses to wear bipap. on her way in and code status changed to DNR/DNI. Pt alert and oriented. Uses his call light and lets you know when he needs medication for pain. Palliative care did a consult. Pt medicated with morphine 2mg IV with good relief. Medicated with ativan 0.5 x1 with good relief. J tube clamped and pt NPO. Frequent oral care for pts comfort done. Family at bedside. NSR. Peripheral line with NS TKO infusing without difficulty. Ahuja patent and draining brian urine. Turned Q 2 hours. 3L OM per pt's request. E: Stable and comfortable S: Uses call light and family at bedside. Frequent rounding.
[2017-03-18] MEDS: Promethazine Inj 12.5 MG in Dextrose 5%-Pha MIX 50 ML IV PRN ×2 (17:15→22:44)
[2017-03-19] VITALS: BP 154/53; PULSE 101; RESP 24; O2SAT 86
[2017-03-19 02:34] LABS: BASOPHILS % (AUTO) 0.1 % (0-3); EOSINOPHILS % (AUTO) 0.1 % (0-5); MONOCYTES % (AUTO) 6.4 % (4-12); Mean Corpuscular Hemoglobin 33.3 pg (27.0-35.0); Mean Corpuscular Volume 107.6 fL (81-100); NEUTROPHILS % (AUTO) 85.8 % (40-74); Platelet Count 185 bil/L (150-400)
--- NOTE | 2017-03-19 05:52 | NUR ---
Patient Pt this AM at 0430. Pt's and two daughters were at his side when he passed. was notified of pt's passing and spoke with family. A home was chosen by the family and a message was left with the home's answering service.
--- NOTE | 2017-03-19 11:27 | PCM.DC.MED ---
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 Dictated by: Alfredo Maya M.D. on 03/17/2017 at 20:[address] from 03/17/17 IMPRESSION: 1. Gastric pull-through in the recent past. 2. Decreasing small pleural effusion in the right chest, postthoracotomy site. 3. Increasing pleural effusion on the left. No abnormal pleural-based enhancement or nodular enhancement to suggest malignancy is seen. 3. No adenopathy or bone destructive change to suggest malignancy is seen. Dictated by: Alfredo Maya M.D. on 03/17/2017 at 17:[address] performed 03/16/17 IMPRESSION: 1. Large left-sided pleural effusion. 2. Consolidation left lung base which could represent compressive atelectasis, however aspiration pneumonia cannot be excluded by imaging alone. Please correlate with clinical laboratory data. 3. Scattered small amount of free fluid in the abdomen and pelvis uncertain etiology. 4. No free intraperitoneal air. 5. No dilated loops of bowel. 6. Small, approximately 1.2 x 2.5 cm fluid collection in the anterior right abdominal wall likely representing postsurgical seroma. Please correlate with direct physical findings to exclude infectious process. 7. Status post cholecystectomy. 8. Jejunostomy tube appears appropriately positioned. 9. Findings discussed with Dr. ivis Larson on 03/16/17 at 1517 hrs. Dictated by: Becky Quintero MD, PhD on 03/16/2017 at 14:02 Other Diagnostics DateTimeAnalyzed 06:12:46 -_ pH ____7.321 - 7.350 7.450 pCO2 ___62.1__ -mmHg 35.0 45.0 pO2 ___99.5__ -mmHg 80.0 100 HCO3- ___32.1__ -mmol/L 22.0 26.0 ABE ____5.2__ -mmol/L -2.0 2.0 tHb ___11.8__ -g/dL 12.0 18.0 O2Hb ___97.2__ -% COHb ____1.8__ -% 1.5 MetHb ____0.0__ -% 0.4 1.5 sO2 ___98.8__ -% 95.0 FIO2 ___80.0__ -% CPAP ___14.0__ -cmH2O PEEP ____9.0__ -cmH2O Brief History This is a 81-year-old male with past medical history of esophageal cancer status post recent surgical J-tube placement, GERD, open cholecystectomy 2 weeks ago at [facility] presenting from [facility] due to nausea vomiting and diarrhea. In the ER CMP was remarkable for elevated alkaline phosphatase, CT abdominopelvic with contrast showed left pleural effusion that is rather large, consolidation at left lung base, atelectasis versus pneumonia, postsurgical seroma. Stool PCR was ordered. Admitted 03/17 for likely aspiration pneumonia. Swallow study 03/17 completed and pt started on mechanical soft solids, thin liquids, medications whole in puree. On 03/17 shortly after his evening meal, the patient became hypoxic, with an pH of 7.1 and a pCO2 of 89 on ABG. He received 40 mL of IV Lasix. The patient is DNI but was willing to have BiPAP and was started on it with transfer to CCU by Dr. Trotter. The patient was still able to speak but was confused and had difficulty tolerating the BiPAP mask, subsequently requiring low dose sedation for agitation. Review of the patient's chart indicates that he has had a pleural effusion for several months, and it does not appear that he has had a prior thoracentesis. Review of his imaging shows fairly sudden decline in lung appearance a few months ago. The thought was to consider paracentesis or chest tube placement depending on patient's wish. Palliative care was consulted and discussed with the family. They preferred to continue treating aspiration PNA with IV antibiotics and monitor respiratory status with BiPAP available if needed. Pain and agitation were managed with 1 mg pushes of IV morphine and 0.5 g pushes of IV Ativan. Family also received a visit from the shaper machine hand at their request. Patient continued to have open-mouth breathing and rattling breath sounds. He eventually passed at 04 30 on 03/19/17 with family at his bedside. Hospital Course See below for detailed hospital course In hospital . -Family present at bedside at time of demise Acute hypercapnic hypoxemic respiratory failure, present on admission -Likely secondary to aspiration event however patient refuses intubation. I spoke with patient's , Vesta this morning of 03/18/17 over the phone, and she stated that she does not desire the patient to have CPR if he codes. -Zosyn was given for treatment of pneumonia -Was initiated on BPAP with slow improvement of his ABG, most recent showing pH of 7.3, pCO2 62 and pO2 99 with IPAP set at 14 cmH2O, EPAP 9, FiO2 90% -Patient was anxious wearing the BiPAP, and 1-2 mg morphine pushes and 0.5 Ativan pushes have helped with this -Palliative care spoke with family and Dr. Jahaira Espinosa updated POLST form to reflect DNR/DNI with limited interventions to include antibiotics and BiPAP Left lung base consolidation, concerning for aspiration pneumonia, present on admission -Imaging indicates infiltrates for several months now. Cannot rule out lung metastatic process -Nasopharyngeal PCR negative on 03/16/17 -Urine strep antigen screen negative on 03/16/17 -Urinary Legionella antigen negative -Gastroenteritis, acute, present on admission -Stool PCR negative on 03/16/17 History of distal esophageal cancer, present on admission -Dr. Puga is his oncologist. Per his last note he stated that patient is not strong enough to undergo chemotherapy or surgery -CA 19-9 antigen 96 on 03/17/17 Elevated alkaline phosphatase, present on admission -Considered possibility of skeletal metastasis -GGT 247 on 03/16/17 Loculated left pleural effusion, small right pleural effusion -No prior paracentesis on file and patient was too confused to clarify further Disposition: In-hospital demise Exam Vital Signs (Last) Date Time Temp Pulse Resp B/P Pulse Ox O2 Delivery O2 Flow Rate FiO2 03/19/17 00:00 101 24 154/53 86 OxyMask 8.00 03/18/17 17:40 37.1 03/18/17 09:00 70 Exam See last medical progress note for most recent physical exam before . Test 03/16/17 12:20 03/16/17 14:03 03/16/17 14:34 03/16/17 15:58 Magnesium Level 2.3mg/dL (1.6-2.6) Lipase 10U/L (13-60) Hold Johnson Top Tube Received (Received) Urine Legionella pneumophilia Ag Negative (Negative) Hold Urine Received (Received) Urine Color Yellow (YELLOW) Urine Appearance Clear (CLEAR,HAZY) Urine pH 6.0 (5.0-8.0) Urine Specific [place] 1.026 (1.003-1.035) Urine Protein Tracemg/dL (NEG,TRACE) Urine Glucose (UA) Negativemg/dL (NEGATIVE) Urine Ketones Negativemg/dL (NEGATIVE) Urine Occult Blood Trace (NEGATIVE) Urine Nitrite Negative (NEGATIVE) Urine Bilirubin Negative (NEGATIVE) Urine Urobilinogen Normalmg/dL (NORMAL) Urine Leukocyte Esterase Negative (NEGATIVE) Urine RBC 0-2/hpf (0-2) Urine WBC 0-5/hpf (0-5) Urine Epithelial Cells Occasional/hpf (NONE-MOD) Urine Crystals Oxalic acid crystals (NONE Urine Bacteria None/hpf (NONE-FEW) Urine Hyaline Casts None/lpf (NONE) Urine Granular Casts None seen (NONE SEEN) Urine Waxy Casts None seen (NONE SEEN) Urine Red Blood Cell Casts None seen (NONE SEEN) Urine White Blood Cell Casts None seen (NONE SEEN) Urine Mucus None seen (None Seen) Urine Trichomonas None seen (NONE SEEN) Urine Yeast None (NONE SEEN) Urinalysis Comment None Urine Culture Reflexed Not indicated Test 03/16/17 21:19 03/17/17 05:30 03/17/17 20:11 03/19/17 02:25 Gamma Glutamyl Transpeptidase 247IU/L (0-65) CA 19-9 Antigen 96U/mL (0-35) CA 125 Antigen 30.7U/mL (Not Estab.) Troponin T < 0.010ug/L (0.0-0.011) Pro-B-Type Natriuretic Peptide 128.6pg/mL (0-486) White Blood Count 9.9th/mm3 (3.8-10.1) Red Blood Count 3.81mil/mm3 (4.40-5.80) Hemoglobin 12.7g/dL (13.8-17.2) Hematocrit 41.0% (41.0-50.0) Mean Corpuscular Volume 107.6fL (81-100) Mean Corpuscular Hemoglobin 33.3pg (27.0-35.0) Mean Corpuscular Hemoglobin Concent 31.0% (32.0-37.0) Red Cell Distribution Width 14.2% (12.3-15.4) Platelet Count 185bil/L (150-400) Neutrophils (%) (Auto) 85.8% (40-74) Lymphocytes (%) (Auto) 7.3% (14-46) Monocytes (%) (Auto) 6.4% (4-12) Eosinophils (%) (Auto) 0.1% (0-5) Basophils (%) (Auto) 0.1% (0-3) Sodium Level 140mEq/L (134-144) Potassium Level 4.7mEq/L (3.5-5.2) Chloride Level 98mEq/L (97-108) Carbon Dioxide Level 31mmol/L (18-29) Blood Urea Nitrogen 16mg/dL (8-27) Creatinine 0.48mg/dL (0.76-1.27) Estimat Glomerular Filtration Rate 179mL/min (>59) Glucose Level 117mg/dL (60-99) Lactic Acid Level 0.9mmol/L (0.4-2.0) Calcium Level 8.4mg/dL (8.5-10.1) Total Bilirubin 0.6mg/dL (0.0-1.2) Aspartate Amino Transf (AST/SGOT) 25U/L (0-50) Alanine Aminotransferase (ALT/SGPT) 19U/L (0-44) Alkaline Phosphatase 231U/L (25-160) Total Protein 7.0g/dL (6.4-8.4) Albumin 3.3g/dL (3.4-5.0) Procalcitonin 1.96ng/mL (0.00-0.08) Discharge Medications Discharge Medications ([First-Lansoprazole]) 3mg/ml 10 ML PO DAILY (Reported) Amoxicillin/Clav K 875-125 mg (Augmentin 875-125 mg) 1 Each Tablet 1 TABLET PO BID (Reported) Cetirizine Chew (Cetirizine Chew) 10 Mg Tab.chew 10 MG PO DAILY (Reported) Cholestyramine (Cholestyramine Packet) 4 Gm Packet 4 GM PO QID (Reported) Enoxaparin Sodium (Enoxaparin Sodium) 40 Mg/0.4 Ml Syringe 40 MG SUBQ DAILY ( Reported) Finasteride (Finasteride) 5 Mg Tablet 5 MG PO DAILY (Reported) Fluoxetine Oral Soln (Fluoxetine Oral Soln) 20 Mg/5 Ml Solution 5 ML PO DAILY ( Reported) Lorazepam (Ativan) 0.5 Mg Tablet 0.5 MG PO TID (Reported) Ondansetron (Ondansetron) 4 Mg Tablet 4 MG PO TID (Reported) As needed Acetaminophen (Mapap) 160 Mg/5 Ml Solution 15.5 ML PO Q4H PRN PRN For Pain ( Reported) Docusate Sodium (Diocto) 50 Mg/5 Ml Liquid 10 ML PO BID PRN PRN For Constipation (Reported) Guaifenesin (Guaifenesin ER) 600 Mg Tab.er.12h 600 MG PO BID PRN PRN For Cough ( Reported) Polyethylene Glycol 3350 (Miralax) 17 Gm Powd.pack 17 GM PO DAILY PRN PRN For Constipation (Reported) Sennosides (Senna) 8.6 Mg Tablet 17.2 MG PO BID PRN PRN For Constipation ( Reported) oxyCODONE (oxyCODONE) 5 Mg/5 Ml Solution 5 ML PO Q4H PRN PRN For Pain (Reported ) Followup Plan Disposition: In-hospital Time spent Greater than 35 minutes Deniz Luna DO Mar 19, 2017 11:27
--- NOTE | 2017-03-19 13:10 | PCM.DC.MEX ---
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 Dictated by: Alfredo Maya M.D. on 03/17/2017 at 20:[address] from 03/17/17 IMPRESSION: 1. Gastric pull-through in the recent past. 2. Decreasing small pleural effusion in the right chest, postthoracotomy site. 3. Increasing pleural effusion on the left. No abnormal pleural-based enhancement or nodular enhancement to suggest malignancy is seen. 3. No adenopathy or bone destructive change to suggest malignancy is seen. Dictated by: Alfredo Maya M.D. on 03/17/2017 at 17:[address] performed 03/16/17 IMPRESSION: 1. Large left-sided pleural effusion. 2. Consolidation left lung base which could represent compressive atelectasis, however aspiration pneumonia cannot be excluded by imaging alone. Please correlate with clinical laboratory data. 3. Scattered small amount of free fluid in the abdomen and pelvis uncertain etiology. 4. No free intraperitoneal air. 5. No dilated loops of bowel. 6. Small, approximately 1.2 x 2.5 cm fluid collection in the anterior right abdominal wall likely representing postsurgical seroma. Please correlate with direct physical findings to exclude infectious process. 7. Status post cholecystectomy. 8. Jejunostomy tube appears appropriately positioned. 9. Findings discussed with Dr. ivis Larson on 03/16/17 at 1517 hrs. Dictated by: Becky Quintero MD, PhD on 03/16/2017 at 14:02 Other Diagnostics DateTimeAnalyzed 06:12:46 -_ pH ____7.321 - 7.350 7.450 pCO2 ___62.1__ -mmHg 35.0 45.0 pO2 ___99.5__ -mmHg 80.0 100 HCO3- ___32.1__ -mmol/L 22.0 26.0 ABE ____5.2__ -mmol/L -2.0 2.0 tHb ___11.8__ -g/dL 12.0 18.0 O2Hb ___97.2__ -% COHb ____1.8__ -% 1.5 MetHb ____0.0__ -% 0.4 1.5 sO2 ___98.8__ -% 95.0 FIO2 ___80.0__ -% CPAP ___14.0__ -cmH2O PEEP ____9.0__ -cmH2O Brief History This is a 81-year-old male with past medical history of esophageal cancer status post recent surgical J-tube placement, GERD, open cholecystectomy 2 weeks ago at [facility] with 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 In the ER CMP was remarkable for elevated alkaline phosphatase, CT abdomen/ pelvis with contrast showed left pleural effusion that is rather large, consolidation at left lung base, atelectasis versus pneumonia, postsurgical seroma. Stool PCR was ordered and was negative. Admitted 03/17 for acute respiratory failure and suspected aspiration pneumonia. Swallow study 03/17 completed recommended diet was mechanical soft solids, thin liquids, medications whole in puree, though patient remained NPO and only received tube feedings. On 03/17 shortly after his evening meal, the patient became hypoxic, with a pH of 7.1 and a pCO2 of 89 on ABG. He received 40 mL of IV Lasix. The patient is DNI but was willing to have BiPAP and was started on it with transfer to CCU by Dr. Trotter. The patient was still able to speak but was confused and had difficulty tolerating the BiPAP mask, subsequently requiring low dose sedation for agitation. Review of the patient's chart indicates that he has had a pleural effusion for several months, and has not had a prior thoracentesis. Review of his imaging shows fairly sudden decline in lung appearance a few months ago. The thought was to consider paracentesis or chest tube placement depending on patient's wishes. The patient, , and daughter were informed of the severity of his current diagnoses and current condition. Palliative care was consulted and spoke with the family extensively along with the medicine team. THe patient decided that he would prefer to be DNR, DNI, and his supported this decision. While patient was being treated for pneumonia, they were considering a Hospice consultation. They preferred to continue treating aspiration PNA with IV antibiotics and monitor respiratory status with BiPAP available if needed. Pain and agitation were managed with 1 mg pushes of IV morphine and 0.5 g pushes of IV Ativan. Family also received a visit from the equipment service engineer at their request. The day after his original swallow study, patient quickly declined and was unable to tolerate the original recommended diet. He changed to thickened liquids only, but was denying food near final hours. Patient continued to have open-mouth breathing and rattling breath sounds. He eventually passed at 0430 in his sleep on 03/19/17 with family at his bedside. Hospital Course See below for detailed hospital course In hospital . -Family present at bedside at time of demise ( and 2 daughters) Acute hypercapnic hypoxemic respiratory failure, present on admission -Likely secondary to aspiration event however patient refuses intubation. I spoke with patient's , Vesta this morning of 03/18/17 over the phone, and she stated that she does not desire the patient to have CPR if he codes. -Zosyn was given for treatment of pneumonia -Was initiated on BPAP with slow improvement of his ABG, most recent showing pH of 7.3, pCO2 62 and pO2 99 with IPAP set at 14 cmH2O, EPAP 9, FiO2 90% -Patient was anxious wearing the BiPAP, and 1-2 mg morphine pushes and 0.5 Ativan pushes helped with this -Palliative care spoke with family and Dr. Jahaira Espinosa updated POLST form to reflect DNR/DNI with limited interventions to include antibiotics and BiPAP Left lung base consolidation, concerning for aspiration pneumonia, present on admission -Imaging indicates infiltrates for several months now. Cannot rule out lung metastatic process -Nasopharyngeal PCR negative on 03/16/17 -Urine strep antigen screen negative on 03/16/17 -Urinary Legionella antigen negative -Gastroenteritis, acute, present on admission -Stool PCR negative on 03/16/17 History of distal esophageal cancer, present on admission -Dr. Puga is his oncologist. Per his last note he stated that patient is not strong enough to undergo chemotherapy or surgery -Metastases noted on recent cholecystectomy -CA 19-9 antigen negative on 03/17/17 Elevated alkaline phosphatase, present on admission -Considered possibility of skeletal metastasis -GGT 247 on 03/16/17 Loculated left pleural effusion, small right pleural effusion -No prior paracentesis on file and patient was too confused to clarify further Disposition: In-hospital demise Exam Test 03/16/17 12:20 03/16/17 14:03 03/16/17 14:34 03/16/17 15:58 Magnesium Level 2.3mg/dL (1.6-2.6) Lipase 10U/L (13-60) Hold Johnson Top Tube Received (Received) Urine Legionella pneumophilia Ag Negative (Negative) Hold Urine Received (Received) Urine Color Yellow (YELLOW) Urine Appearance Clear (CLEAR,HAZY) Urine pH 6.0 (5.0-8.0) Urine Specific [place] 1.026 (1.003-1.035) Urine Protein Tracemg/dL (NEG,TRACE) Urine Glucose (UA) Negativemg/dL (NEGATIVE) Urine Ketones Negativemg/dL (NEGATIVE) Urine Occult Blood Trace (NEGATIVE) Urine Nitrite Negative (NEGATIVE) Urine Bilirubin Negative (NEGATIVE) Urine Urobilinogen Normalmg/dL (NORMAL) Urine Leukocyte Esterase Negative (NEGATIVE) Urine RBC 0-2/hpf (0-2) Urine WBC 0-5/hpf (0-5) Urine Epithelial Cells Occasional/hpf (NONE-MOD) Urine Crystals Oxalic acid crystals (NONE Urine Bacteria None/hpf (NONE-FEW) Urine Hyaline Casts None/lpf (NONE) Urine Granular Casts None seen (NONE SEEN) Urine Waxy Casts None seen (NONE SEEN) Urine Red Blood Cell Casts None seen (NONE SEEN) Urine White Blood Cell Casts None seen (NONE SEEN) Urine Mucus None seen (None Seen) Urine Trichomonas None seen (NONE SEEN) Urine Yeast None (NONE SEEN) Urinalysis Comment None Urine Culture Reflexed Not indicated Test 03/16/17 21:19 03/17/17 05:30 03/17/17 20:11 03/19/17 02:25 Gamma Glutamyl Transpeptidase 247IU/L (0-65) CA 19-9 Antigen 96U/mL (0-35) CA 125 Antigen 30.7U/mL (Not Estab.) Troponin T < 0.010ug/L (0.0-0.011) Pro-B-Type Natriuretic Peptide 128.6pg/mL (0-486) White Blood Count 9.9th/mm3 (3.8-10.1) Red Blood Count 3.81mil/mm3 (4.40-5.80) Hemoglobin 12.7g/dL (13.8-17.2) Hematocrit 41.0% (41.0-50.0) Mean Corpuscular Volume 107.6fL (81-100) Mean Corpuscular Hemoglobin 33.3pg (27.0-35.0) Mean Corpuscular Hemoglobin Concent 31.0% (32.0-37.0) Red Cell Distribution Width 14.2% (12.3-15.4) Platelet Count 185bil/L (150-400) Neutrophils (%) (Auto) 85.8% (40-74) Lymphocytes (%) (Auto) 7.3% (14-46) Monocytes (%) (Auto) 6.4% (4-12) Eosinophils (%) (Auto) 0.1% (0-5) Basophils (%) (Auto) 0.1% (0-3) Sodium Level 140mEq/L (134-144) Potassium Level 4.7mEq/L (3.5-5.2) Chloride Level 98mEq/L (97-108) Carbon Dioxide Level 31mmol/L (18-29) Blood Urea Nitrogen 16mg/dL (8-27) Creatinine 0.48mg/dL (0.76-1.27) Estimat Glomerular Filtration Rate 179mL/min (>59) Glucose Level 117mg/dL (60-99) Lactic Acid Level 0.9mmol/L (0.4-2.0) Calcium Level 8.4mg/dL (8.5-10.1) Total Bilirubin 0.6mg/dL (0.0-1.2) Aspartate Amino Transf (AST/SGOT) 25U/L (0-50) Alanine Aminotransferase (ALT/SGPT) 19U/L (0-44) Alkaline Phosphatase 231U/L (25-160) Total Protein 7.0g/dL (6.4-8.4) Albumin 3.3g/dL (3.4-5.0) Procalcitonin 1.96ng/mL (0.00-0.08) Time spent Greater than 35 minutes Attending Statement The patient was seen and examined together with Dr. Luna on 03/19/17 and I have added additional information to the note above. Deniz Luna DO Mar 19, 2017 13:10 Josefa Candelario DO Mar 19, 2017 13:51
== END 2017-03-19 04:30 | disposition expired | DRG 177 ==
LOC: SED 11:52 → MPC 16:07 → PCC 03-17 20:04 → CCU 03-17 21:00 → PCC 03-18 11:54
PROVIDERS: ADMIT Family Medicine; ATTEND Neuromusculoskeletal Medicine & OMM
PROC: 4A033R1 Measurement of Arterial Saturation, Peripheral, Percutaneous Approach (ICD-10-PCS; principal; 2017-03-17)
PROC: 3E0H76Z Introduction of Nutritional Substance into Lower GI, Via Natural or Artificial Opening (ICD-10-PCS; 2017-03-17)
PROC: 5A09357 Assistance with Respiratory Ventilation, Less than 24 Consecutive Hours, Continuous Positive Airway Pressure (ICD-10-PCS; 2017-03-18)
DX: J69.0 Pneumonitis due to inhalation of food and vomit (principal); J96.02 Acute respiratory failure with hypercapnia; J96.01 Acute respiratory failure with hypoxia; J90 Pleural effusion, not elsewhere classified; C78.4 Secondary malignant neoplasm of small intestine; C15.9 Malignant neoplasm of esophagus, unspecified; K21.9 Gastro-esophageal reflux disease without esophagitis; E86.0 Dehydration; R19.7 Diarrhea, unspecified; Z66 Do not resuscitate; K52.9 Noninfective gastroenteritis and colitis, unspecified; Z93.4 Other artificial openings of gastrointestinal tract status; Z90.49 Acquired absence of other specified parts of digestive tract